=== PATIENT | female | born 1950 | race Caucasian/White ===

== ENCOUNTER 2017-11-15 05:47 | Inpatient (IN) | payer OTHER ==
[2017-11-15] MEDS ORDERED: FUROSEMIDE 40 MG/4 ML INJECTABLE VIAL IVPUSH ONE ×2 (05:50→06:03)
[2017-11-15] MEDS ORDERED: HEMOQUE TEST 1 EACH EACH ONE (05:55)
[2017-11-15] MEDS ORDERED: MAGNESIUM SULF 50% (8.12 MEQ/2 ML-1 GM VIAL) IVPB ONE (06:00)
[2017-11-15 06:02] LABS: ALLENS TEST POSITIVE; ARTERIAL BLD GAS O2 SATURATION 95.1 % (90-98.9); ARTERIAL BLOOD GAS BASE EXCESS -5.1 meq/l (-2-2); ARTERIAL BLOOD GAS PCO2 59.6 mmHg (35-45); ARTERIAL BLOOD GAS PO2 84.1 mmHg (80-100); CARBOXYHEMOGLOBIN 5.8 gm% (0.5-2.0)
[2017-11-15] MEDS ORDERED: methylPREDNISolone NA SUCC 125 MG/2 ML VIAL IVPUSH ONE (06:03)
[2017-11-15] MEDS ORDERED: PROPOFOL 200 MG/20 ML VIAL IVPUSH ONE ×5 (06:03→07:39)
[2017-11-15 06:04] LABS: ARTERIAL BLOOD GAS pH 7.21 (7.35-7.45)
[2017-11-15] MEDS: PROPOFOL 1,000,000 MCG/100 ML VIAL IVPB SCH ×3 (06:05→17:25)
[2017-11-15 06:07] LABS: VENOUS PC02 69.6 mmHg (38-52); VENOUS PH 7.17 (7.32-7.42); VENOUS PO2 95.3 mmHg (28-48)
--- NOTE | 2017-11-15 06:10 | PDOC ---
Attending Attestation - Resident Resident Name: Bernie Vang - ED Attending Attestation I have performed the following: I have examined & evaluated the patient, The case was reviewed & discussed with the resident, I agree w/resident's findings & plan, Exceptions are as noted - Medical Decision Making 11/15/17 06:07 67yoF hx of HTN, DM, CHF, COPD presents w/ intubation by EMS for resp distress and hypoxic resp failure, pt w/ likely CHF/APE as pt is hypertensive w/ significant edema and ronchi on examination. Possilbe component of COPD exacerbation as well. - Intubated, continue ETT. - labs w/ ABG - CXR - EKG - cardaic monitor - nebs/steroids - lasix, NTG PRN - propofol sedation - ICU <Ely Coleman - Last Filed: 11/15/17 06:06> - HPI HPI: 11/15/17 06:29 The patient is a 67 year old female brought in by EMS, with a past medical history of PVD, CHF, COPD, diabetes, heart disease, HTN, HLD, chronic edema, and schizophrenia, who presents to the emergency department for evaluation of respiratory distress. The patient was intubated en route to ED by EMS for resp distress w/ inability to tolerate CPAP in the field. Pt notably hypertensive both in the field and in the ER. Patient is taking 40mg of Lasix 2x daily. Unable to obtain narrative history secondary to patients current clinical condition. Allergies: Ciprofloxacin, erythromycin base, penicillins, shellfish Social History: As per EMS, smokes a pack and a half per day. No reported alcohol or drug use. Surgical History: Denies. PCP: Dr. William Du - Physicial Exam PE: NAD EOMI, JULIO CÉSAR MMM, OP WNL NCAT, no midline cervical tenderness RRR, nl s1/s2, no m/r/g (+)intubated, rhonchorous breath sounds. (+)Obese. Soft, NTND (+)2+ pitting edema bilateral lower extremities. WWP, no rash <Zohreh Lund - Last Filed: 11/15/17 06:54> Attestations - Attestations Documentation prepared by Zohreh Lund, acting as medical communication specialist for Ely Coleman MD. <Zohreh Lund - Last Filed: 11/15/17 06:54>
--- NOTE | 2017-11-15 06:11 | PDOC ---
History of Present Illness - General Chief Complaint: Respiratory Distress Stated Complaint: RESPIRATORY DISTRESS Time Seen by Provider: 11/15/17 05:51 - History of Present Illness Initial Comments: 11/15/17 06:04 67 year old with history of HTN. DM, COPD, CHF BIBA presented in respiratory distress and hypoxic resp failure, intubated en route 2/2 unable to tolerate CPAP. Per EMS patient takes lasix 40mg daily. Patient likely w/ CHF exacerbation. On exam significant rhonchi bilaterally. Vital signs stable. Tube checked and in place. PMHX: as in HPI Meds: as in HPI Allergies: cipro, erythromycin, penicillin, shellfish Past History - Past Medical History Allergies/Adverse Reactions: Allergies Allergy/AdvReac Type Severity Reaction Status Date / Time ciprofloxacin [From Cipro] Allergy Verified 11/15/17 06:03 erythromycin base Allergy Verified 11/15/17 06:03 Penicillins Allergy Verified 11/15/17 06:03 shellfish derived Allergy Verified 11/15/17 06:03 Home Medications: Ambulatory Orders Bismuth Subsalicylate [Pepto-Bismol -] 524 mg PO DAILY PRN 11/15/17 Bismuth Subsalicylate [[place] Bismuth] 15 ml PO DAILY PRN 11/15/17 Calcium Carbonate/Vitamin D3 [Calcium 600 + Vit D 200 Tablet] 1 each PO BID 10/26 Carvedilol [Coreg -] 50 mg PO BID 11/15/17 Clonidine HCl [Catapres] 0.1 mg PO BID 11/15/17 Clopidogrel Bisulfate [Plavix] 75 mg PO DAILY 11/15/17 Diphenoxylate HCl/Atropine [Lomotil Tablet] 1 each PO DAILY 11/15/17 Famotidine [Pepcid -] 20 mg PO DAILY 11/15/17 Furosemide [Lasix -] 40 mg PO BID 11/15/17 Glimepiride 4 mg PO BID 11/15/17 Metformin HCl [Metformin HCl ER] 1,000 mg PO BID 11/15/17 Methimazole [Tapazole -] 10 mg PO BID 11/15/17 Perphenazine [Trilafon] 8 mg PO HS 11/15/17 Petrolatum,White [Aquaphor] 85 gm TP DAILY 11/15/17 Simethicone [Anti-Gas] 180 mg PO TID PRN 11/15/17 Simvastatin [Zocor -] 10 mg PO DAILY 11/15/17 Sitagliptin Phos/Metformin HCl [Janumet Xr 100-1,000 mg Tablet] 1 tab PO DAILY 11/15/17 Zolpidem Tartrate [Ambien] 10 mg PO HS 11/15/17 - Suicide/Smoking/Psychosocial Hx Smoking History: Unknown if ever smoked Have you smoked in the past 12 months: No Information on smoking cessation initiated: No Hx Alcohol Use: No Drug/Substance Use Hx: No Review of Systems - Review of Systems Able to Perform ROS?: No (intubated) *Physical Exam - Vital Signs Last Vital Signs Temp Pulse Resp BP Pulse Ox 96.4 F L 78 14 210/141 100 11/15/17 05:48 11/15/17 05:48 11/15/17 05:50 11/15/17 05:48 11/15/17 05:48 - Physical Exam Comments: GENERAL: intubated HEAD: No signs of trauma, normocephalic, atraumatic EYES: PERRLA LUNGS: rhonchous breath sounds anteriorly HEART: Regular rate and rhythm, normal S1 and S2, no murmurs, rubs or gallops, peripheral pulses normal and equal bilaterally. ABDOMEN: Soft, nontender, normoactive bowel sounds. EXTREMITIES : Normal inspection, no edema. No clubbing or cyanosis. SKIN: Warm, Dry, normal turgor, no rashes or lesions noted ED Treatment Course - LABORATORY CBC & Chemistry Diagram: 11/18/17 09:00 11/18/17 09:00 Medical Decision Making - Medical Decision Making 67 year old with history of HTN. DM, COPD, CHF BIBA presented in respiratory distress and hypoxic resp failure, intubated en route 2/2 unable to tolerate CPAP. Per EMS patient takes lasix 40mg daily. W/U - PTT, PT/INR, CBC, CMP, BNP, POC Glucose - CXR - UA, Ucx DDX: CHF exacerbation vs COPD exacerbation vs ARF Patient signed out to Dr. Molina. *DC/Admit/Observation/Transfer Diagnosis at time of Disposition: CHF exacerbation Qualifiers: Heart failure type: unspecified Qualified Code(s): I50.9 - Heart failure, unspecified - Discharge Dispostion Condition at time of disposition: Critical Decision to Admit order: Yes - Referrals - Patient Instructions - Post Discharge Activity
[2017-11-15] MEDS: IPRATROPIUM BR 0.02% 0.5 MG/2.5 ML VIAL.NEB. NEB SCH ×2 (06:31→06:32)
[2017-11-15] MEDS: ALBUTEROL SO4 0.083% IH SOL 2.5 MG/3 ML VIAL.NEB. NEB SCH ×2 (06:31→06:32)
[2017-11-15 06:41] LABS: INR 1.02 (0.83-1.09); PROTHROMBIN TIME (PATIENT) 11.5 SEC (9.7-13.0)
[2017-11-15 06:43] LABS: ACTIVATED PTT 32.8 SECONDS (25.2-36.5)
[2017-11-15] MEDS ORDERED: fentaNYL CITRATE/PF 1,000 MCG/20 ML AMPUL IVPUSH ONE ×2 (06:44→07:12)
[2017-11-15 06:46] LABS: BASO % 0.6 % (0-2.0); EOS % 2.2 % (0-4.5); HEMATOCRIT 34.4 % (32.4-45.2); HEMOGLOBIN 11.5 GM/dL (10.7-15.3); LYMPH % 26.2 % (8-40); MCH 29.6 pg (25.7-33.7); MCHC 33.3 g/dl (32.0-36.0); MEAN CELL VOLUME 88.9 fl (80-96); MEAN PLT VOLUME 8.4 fl (7.5-11.1); MONO % 6.7 % (3.8-10.2); NEUT % 64.3 % (42.8-82.8); PLATELET COUNT 224 K/MM3 (134-434); RBC 3.88 M/mm3 (3.60-5.2); RDW 15.4 % (11.6-15.6); WHITE BLOOD COUNT 8.7 K/mm3 (4.0-10.0)
[2017-11-15] MEDS ORDERED: Insulin (LOG) Aspart 100 UNITS/ML VIAL SQ ONE (06:46)
[2017-11-15 06:52] LABS: ALK PHOS 99 U/L (45-117); ANION GAP 2 (8-16); BILIRUBIN,TOTAL 0.1 mg/dL (0.2-1.0); BLOOD UREA NITROGEN 24 mg/dL (7-18); CALCIUM 8.5 mg/dL (8.5-10.1); CHLORIDE 106 mmol/L (98-107); CO2 27 mmol/L (21-32); CREATININE 0.8 mg/dL (0.55-1.02); POTASSIUM 4.5 mmol/L (3.5-5.1); SGOT/AST 16 U/L (15-37); SGPT/ALT 16 U/L (12-78); SODIUM 135 mmol/L (136-145); TOT PROT 6.3 g/dl (6.4-8.2)
[2017-11-15 06:53] LABS: URINE APPEARANCE CLEAR; URINE BILIRUBIN NEGATIVE (<2.0 mg/dL); URINE COLOR STRAW; URINE GLUCOSE (UA) 2+ (NEGATIVE); URINE KETONE NEGATIVE (NEGATIVE); URINE LEUK ESTERASE TRACE (NEGATIVE); URINE NITRITE NEGATIVE (NEGATIVE); URINE UROBILINOGEN NEGATIVE mg/dL (0.2-1.0)
[2017-11-15 06:57] LABS: GLUCOSE,RANDOM 305 mg/dL (74-106)
[2017-11-15] MEDS ORDERED: INSULIN (NOVOLOG) ASPART 100 UNITS/ML 10ML VIAL ONE (07:02)
[2017-11-15 07:04] LABS: URINE PROTEIN 3+ (NEGATIVE)
[2017-11-15] MEDS ORDERED: PROPOFOL 20 ML ONE (07:13)
[2017-11-15 07:14] LABS: EPI CELLS RARE /HPF (FEW); URINE BACTERIA MANY /hpf (NONE SEEN); URINE HYALINE CAST 4 /lpf; URINE MUCUS RARE
--- NOTE | 2017-11-15 07:16 | PDOC ---
*Physical Exam - Vital Signs Last Vital Signs Temp Pulse Resp BP Pulse Ox 96.4 F L 61 14 179/64 99 11/15/17 05:48 11/15/17 06:57 11/15/17 06:32 11/15/17 06:57 11/15/17 06:57 - Physical Exam Comments: GENERAL: Intubated, sedated HEENT: No signs of trauma, ETT in place LUNGS: B/l diffuse rhonchi HEART: Regular rate and rhythm, normal S1 and S2 ABDOMEN: Soft, protuberant, non-distended EXTREMITIES : BLE 2+ pitting edema with overlying erythema; without warmth or induration 11/15/17 07:20 ED Treatment Course - LABORATORY CBC & Chemistry Diagram: 11/15/17 06:05 11/15/17 06:05 - ADDITIONAL ORDERS Additional order review: Laboratory Results 11/15/17 11/15/17 11/15/17 06:15 06:05 06:05 PT with INR 11.50 INR 1.02 PTT (Actin FS) 32.8 Puncture Site ABG pH ABG pCO2 at Pt Temp ABG pO2 at Pt Temp ABG HCO3 ABG O2 Sat (Measured) ABG O2 Content ABG Base Excess Dhiraj Test VBG pH POC VBG pCO2 POC VBG pO2 Mixed VBG HCO3 Carboxyhemoglobin Methemoglobin O2 Delivery Device Oxygen Flow Rate Vent Mode Vent Rate Mechanical Rate PEEP Pressure Support Vent Sodium 135 L Potassium 4.5 Chloride 106 Carbon Dioxide 27 Anion Gap 2 L BUN 24 H Creatinine 0.8 Creat Clearance w eGFR > 60 POC Glucometer Random Glucose 305 H* Calcium 8.5 Total Bilirubin 0.1 L AST 16 ALT 16 Alkaline Phosphatase 99 Total Protein 6.3 L Albumin 3.0 L Urine Color Straw Urine Appearance Clear Urine pH 6.0 Ur Specific [place] 1.010 Urine Protein 3+ H Urine Glucose (UA) 2+ H Urine Ketones Negative Urine Blood Negative Urine Nitrite Negative Urine Bilirubin Negative Urine Urobilinogen Negative Ur Leukocyte Esterase Trace Urine WBC (Auto) 11 Urine RBC (Auto) 3 Ur Epithelial Cells Rare Urine Bacteria Many Hyaline Casts 4 Urine Mucus Rare 11/15/17 11/15/17 11/15/17 06:01 05:54 05:50 PT with INR INR PTT (Actin FS) Puncture Site Left radial ABG pH 7.21 L* ABG pCO2 at Pt Temp 59.6 H ABG pO2 at Pt Temp 84.1 ABG HCO3 23.0 ABG O2 Sat (Measured) 95.1 ABG O2 Content 14.3 L ABG Base Excess -5.1 L Dhiraj Test Positive VBG pH 7.17 L* POC VBG pCO2 69.6 H* POC VBG pO2 95.3 H Mixed VBG HCO3 24.1 Carboxyhemoglobin 5.8 H Methemoglobin 1.6 H O2 Delivery Device Vent Oxygen Flow Rate 70 Vent Mode A/c Vent Rate 14 Mechanical Rate Yes PEEP 8.0 Pressure Support Vent 450 Sodium Potassium Chloride Carbon Dioxide Anion Gap BUN Creatinine Creat Clearance w eGFR POC Glucometer [phone] Random Glucose Calcium Total Bilirubin AST ALT Alkaline Phosphatase Total Protein Albumin Urine Color Urine Appearance Urine pH Ur Specific [place] Urine Protein Urine Glucose (UA) Urine Ketones Urine Blood Urine Nitrite Urine Bilirubin Urine Urobilinogen Ur Leukocyte Esterase Urine WBC (Auto) Urine RBC (Auto) Ur Epithelial Cells Urine Bacteria Hyaline Casts Urine Mucus 11/15/17 11/15/17 06:05 06:01 RBC 3.88 MCV 88.9 MCHC 33.3 RDW 15.4 MPV 8.4 Neutrophils % 64.3 Lymphocytes % 26.2 Monocytes % 6.7 Eosinophils % 2.2 Basophils % 0.6 POC Glucometer [phone] - Medications Given in the ED: ED Medications Discontinued Medications Generic Name Dose Route Start Last Admin Trade Name Jeff PRN Reason Stop Dose Admin Albuterol Sulfate 1 amp 11/15/17 06:15 11/15/17 06:32 Ventolin 0.083% Nebulizer Soln - NEB 11/15/17 06:36 1 amp Q10M JOHAN Administration Fentanyl Citrate 75 mcg 11/15/17 06:44 11/15/17 06:50 Fentanyl 1,000 Mcg/20 Ml Ampul IVPUSH 11/15/17 06:45 75 mcg ONCE ONE Administration Furosemide 80 mg 11/15/17 05:50 11/15/17 06:29 Lasix Injection - IVPUSH 11/15/17 05:51 Not Given ONCE ONE Furosemide 80 mg 11/15/17 06:03 11/15/17 06:00 Lasix Injection - IVPUSH 11/15/17 06:04 80 mg ONCE ONE Administration Insulin Aspart 6 units 11/15/17 06:46 11/15/17 07:03 Novolog SQ 11/15/17 06:47 6 units ONCE ONE Administration Ipratropium [place] 1 amp 11/15/17 06:15 11/15/17 06:32 Atrovent 0.02% Nebulizer - NEB 11/15/17 06:36 1 amp Q10M JOHAN Administration Magnesium Sulfate 2 gm 11/15/17 06:00 11/15/17 06:00 Magnesium Sulfate IVPB 11/15/17 06:01 2 gm NOW ONE Administration Methylprednisolone Sodium Succinate 125 mg 11/15/17 06:03 11/15/17 06:00 Solu-Medrol - IVPUSH 11/15/17 06:04 125 mg ONCE ONE Administration Propofol 80,000 mcg 11/15/17 06:03 11/15/17 06:09 Diprivan - IVPUSH 11/15/17 06:04 80,000 mcg ONCE ONE Administration Propofol 80,000 mcg 11/15/17 06:44 11/15/17 06:50 Diprivan - IVPUSH 11/15/17 06:45 80,000 mcg ONCE ONE Administration Medical Decision Making - Critical Care Time Total Critical Care Time (minutes): 30 Critical Care Statement: The care of this patient involved high complexity decision making to prevent further life threatening deterioration of the patient 's condition and/or to evaluate & treat vital organ system(s) failure or risk of failure. - Medical Decision Making I have assumed care of the patient from Dr. Meza, who has discussed the clinical presentation, work-up, and ED course thus far. I have reviewed the patients medical record and ED course and agree with all aspects of care thus far. Patient is currently intubated, sedated with propofol gtt, and pending ICU admission. Dr. Meza had given sign out to ICU team. Will contact hospitalist for admission/sign-out Will continue post-intubation sedation with Propofol and Versed gtt. Patient hyperglycemic (305), will give Novolog 6u once Currently regular rate, normotensive, and saturating well on AC Pending transfer to ICU; Will be admitted under Dr. Angel 11/15/17 07:15 *DC/Admit/Observation/Transfer Diagnosis at time of Disposition: CHF exacerbation Qualifiers: Heart failure type: unspecified Qualified Code(s): I50.9 - Heart failure, unspecified - Discharge Dispostion Condition at time of disposition: Critical Decision to Admit order: Yes - Referrals - Patient Instructions - Post Discharge Activity
[2017-11-15] MEDS: MIDAZOLAM 100 MG in SODIUM CHLORIDE 100 ML IVPB SCH (07:45)
[2017-11-15] MEDS ORDERED: PROPOFOL 1,000,000 MCG/100 ML VIAL ONE (08:01)
--- NOTE | 2017-11-15 10:24 | HP ---
CHIEF COMPLAINT: Respiratory arrest PCP: Dr. William Du at [facility] [phone] Dr. Wright - PCP - [facility] Camargo - Cardiology - [facility] Griffin - Endo - [facility] Walker HISTORY OF PRESENT ILLNESS: 67 year-old female with a PMH significant for HTN, HLD, CAD s/p RI s/p stents, CHF, COPD, hyperthyroidism, NIDDM with retinopathy and neuropathy, frequent falls, and schizophrenia. Patient's son Lavon Brown is present at the time of this admission. He visited his mother yesterday afternoon. He observed her legs and feet were more swollen than usual. She had her usual chronic cough. She did not appear to be unusually short of breath. Some time last evening, after he left, the patient became short of breath and the staff at [facility] activated EMS. Patient was found to be in extreme respiratory distress. She was intubated in the field and brought to the ED. Per the son the patient has a history of frequent hospitalizations but has never been intubated. ER course was notable for: (1) ABG 7.21/59/84/23/95% on 70% FiO2 (2) BNP 2253 (3) UA - pyuria Recent Travel: No PAST MEDICAL HISTORY: Hypertension Hyperlipidemia Coronary artery disease s/p RI CHF COPD Hyperthyroidism NIDDM - retinopathy, neuropathy Frequent falls Schizophrenia PAST SURGICAL HISTORY: Coronary artery stents C-sections x 2 Social History: Smoking: Current every day smoker Alcohol: no Drugs: no Family History: Allergies ciprofloxacin [From Cipro] Allergy (Verified 11/15/17 06:03) erythromycin base Allergy (Verified 11/15/17 06:03) Penicillins Allergy (Verified 11/15/17 06:03) shellfish derived Allergy (Verified 11/15/17 06:03) HOME MEDICATIONS: Home Medications Medication Instructions Recorded Bismuth Subsalicylate 524 mg PO DAILY PRN 11/15/17 [Pepto-Bismol -] Bismuth Subsalicylate [[place] 15 ml PO DAILY PRN 11/15/17 Bismuth] Calcium Carbonate/Vitamin D3 1 each PO BID 11/15/17 [Calcium 600 + Vit D 200 Tablet] Carvedilol [Coreg -] 50 mg PO BID 11/15/17 Clonidine HCl [Catapres] 0.1 mg PO BID 11/15/17 Clopidogrel Bisulfate [Plavix] 75 mg PO DAILY 11/15/17 Diphenoxylate HCl/Atropine 1 each PO DAILY 11/15/17 [Lomotil Tablet] Famotidine [Pepcid -] 20 mg PO DAILY 11/15/17 Furosemide [Lasix -] 40 mg PO BID 11/15/17 Glimepiride 4 mg PO BID 11/15/17 Metformin HCl [Metformin HCl ER] 1,000 mg PO BID 11/15/17 Methimazole [Tapazole -] 10 mg PO BID 11/15/17 Perphenazine [Trilafon] 8 mg PO HS 11/15/17 Petrolatum,White [Aquaphor] 85 gm TP DAILY 11/15/17 Simethicone [Anti-Gas] 180 mg PO TID PRN 11/15/17 Simvastatin [Zocor -] 10 mg PO DAILY 11/15/17 Sitagliptin Phos/Metformin HCl 1 tab PO DAILY 11/15/17 [Janumet Xr 100-1,000 mg Tablet] Zolpidem Tartrate [Ambien] 10 mg PO HS 11/15/17 REVIEW OF SYSTEMS: Patient sedated and intubated PHYSICAL EXAMINATION Vital Signs Temperature 97.9 F 11/15/17 18:00 Pulse Rate 62 11/15/17 18:00 Respiratory Rate 18 11/15/17 18:00 Blood Pressure 187/74 11/15/17 18:00 O2 Sat by Pulse Oximetry (%) 100 11/15/17 10:00 GENERAL: Intubated, sedated HEAD: Normal with no signs of trauma. EYES: Pupils equal, round and reactive to light LUNGS: Mechanical breath sounds HEART: Regular rate and rhythm, S1 and S2 ABDOMEN: Soft, nontender, not distended LOWER EXTREMITIES: 2+ pulses, warm, well-perfused. No calf tenderness elicited. 2+ pitting edema feet up to knees. Laboratory Results - last 24 hr 11/15/17 11/15/17 11/15/17 05:50 05:54 06:01 WBC RBC Hgb Hct MCV MCH MCHC RDW Plt Count MPV Absolute Neuts (auto) Neutrophils % Lymphocytes % Monocytes % Eosinophils % Basophils % Nucleated RBC % PT with INR INR PTT (Actin FS) Puncture Site Left radial ABG pH 7.21 L* ABG pCO2 at Pt Temp 59.6 H ABG pO2 at Pt Temp 84.1 ABG HCO3 23.0 ABG O2 Sat (Measured) 95.1 ABG O2 Content 14.3 L ABG Base Excess -5.1 L Dhiraj Test Positive VBG pH 7.17 L* POC VBG pCO2 69.6 H* POC VBG pO2 95.3 H Mixed VBG HCO3 24.1 Carboxyhemoglobin 5.8 H Methemoglobin 1.6 H O2 Delivery Device Vent Oxygen Flow Rate 70 Vent Mode A/c Vent Rate 14 Mechanical Rate Yes PEEP 8.0 Pressure Support Vent 450 Sodium Potassium Chloride Carbon Dioxide Anion Gap BUN Creatinine Creat Clearance w eGFR POC Glucometer [phone] Random Glucose Lactic Acid Calcium Total Bilirubin AST ALT Alkaline Phosphatase Creatine Kinase Troponin I B-Natriuretic Peptide Total Protein Albumin Urine Color Urine Appearance Urine pH Ur Specific [place] Urine Protein Urine Glucose (UA) Urine Ketones Urine Blood Urine Nitrite Urine Bilirubin Urine Urobilinogen Ur Leukocyte Esterase Urine WBC (Auto) Urine RBC (Auto) Ur Epithelial Cells Urine Bacteria Hyaline Casts Urine Mucus 11/15/17 11/15/17 11/15/17 06:05 06:05 06:05 WBC 8.7 RBC 3.88 Hgb 11.5 Hct 34.4 MCV 88.9 MCH 29.6 MCHC 33.3 RDW 15.4 Plt Count 224 MPV 8.4 Absolute Neuts (auto) 5.6 Neutrophils % 64.3 Lymphocytes % 26.2 Monocytes % 6.7 Eosinophils % 2.2 Basophils % 0.6 Nucleated RBC % 0 PT with INR 11.50 INR 1.02 PTT (Actin FS) 32.8 Puncture Site ABG pH ABG pCO2 at Pt Temp ABG pO2 at Pt Temp ABG HCO3 ABG O2 Sat (Measured) ABG O2 Content ABG Base Excess Dhiraj Test VBG pH POC VBG pCO2 POC VBG pO2 Mixed VBG HCO3 Carboxyhemoglobin Methemoglobin O2 Delivery Device Oxygen Flow Rate Vent Mode Vent Rate Mechanical Rate PEEP Pressure Support Vent Sodium 135 L Potassium 4.5 Chloride 106 Carbon Dioxide 27 Anion Gap 2 L BUN 24 H Creatinine 0.8 Creat Clearance w eGFR > 60 POC Glucometer Random Glucose 305 H* Lactic Acid Calcium 8.5 Total Bilirubin 0.1 L AST 16 ALT 16 Alkaline Phosphatase 99 Creatine Kinase Troponin I B-Natriuretic Peptide Total Protein 6.3 L Albumin 3.0 L Urine Color Urine Appearance Urine pH Ur Specific [place] Urine Protein Urine Glucose (UA) Urine Ketones Urine Blood Urine Nitrite Urine Bilirubin Urine Urobilinogen Ur Leukocyte Esterase Urine WBC (Auto) Urine RBC (Auto) Ur Epithelial Cells Urine Bacteria Hyaline Casts Urine Mucus 11/15/17 11/15/17 11/15/17 06:05 06:15 06:40 WBC RBC Hgb Hct MCV MCH MCHC RDW Plt Count MPV Absolute Neuts (auto) Neutrophils % Lymphocytes % Monocytes % Eosinophils % Basophils % Nucleated RBC % PT with INR INR PTT (Actin FS) Puncture Site ABG pH ABG pCO2 at Pt Temp ABG pO2 at Pt Temp ABG HCO3 ABG O2 Sat (Measured) ABG O2 Content ABG Base Excess Dhiraj Test VBG pH POC VBG pCO2 POC VBG pO2 Mixed VBG HCO3 Carboxyhemoglobin Methemoglobin O2 Delivery Device Oxygen Flow Rate Vent Mode Vent Rate Mechanical Rate PEEP Pressure Support Vent Sodium Potassium Chloride Carbon Dioxide Anion Gap BUN Creatinine Creat Clearance w eGFR POC Glucometer Random Glucose Lactic Acid 1.7 Calcium Total Bilirubin AST ALT Alkaline Phosphatase Creatine Kinase 45 Troponin I < 0.02 B-Natriuretic Peptide Total Protein Albumin Urine Color Straw Urine Appearance Clear Urine pH 6.0 Ur Specific [place] 1.010 Urine Protein 3+ H Urine Glucose (UA) 2+ H Urine Ketones Negative Urine Blood Negative Urine Nitrite Negative Urine Bilirubin Negative Urine Urobilinogen Negative Ur Leukocyte Esterase Trace Urine WBC (Auto) 11 Urine RBC (Auto) 3 Ur Epithelial Cells Rare Urine Bacteria Many Hyaline Casts 4 Urine Mucus Rare 11/15/17 06:40 WBC RBC Hgb Hct MCV MCH MCHC RDW Plt Count MPV Absolute Neuts (auto) Neutrophils % Lymphocytes % Monocytes % Eosinophils % Basophils % Nucleated RBC % PT with INR INR PTT (Actin FS) Puncture Site ABG pH ABG pCO2 at Pt Temp ABG pO2 at Pt Temp ABG HCO3 ABG O2 Sat (Measured) ABG O2 Content ABG Base Excess Dhiraj Test VBG pH POC VBG pCO2 POC VBG pO2 Mixed VBG HCO3 Carboxyhemoglobin Methemoglobin O2 Delivery Device Oxygen Flow Rate Vent Mode Vent Rate Mechanical Rate PEEP Pressure Support Vent Sodium Potassium Chloride Carbon Dioxide Anion Gap BUN Creatinine Creat Clearance w eGFR POC Glucometer Random Glucose Lactic Acid Calcium Total Bilirubin AST ALT Alkaline Phosphatase Creatine Kinase Troponin I B-Natriuretic Peptide 2253.39 H Total Protein Albumin Urine Color Urine Appearance Urine pH Ur Specific [place] Urine Protein Urine Glucose (UA) Urine Ketones Urine Blood Urine Nitrite Urine Bilirubin Urine Urobilinogen Ur Leukocyte Esterase Urine WBC (Auto) Urine RBC (Auto) Ur Epithelial Cells Urine Bacteria Hyaline Casts Urine Mucus ASSESSMENT/PLAN: 67 year-old female with a PMH significant for HTN, HLD, CAD s/p RI s/p stents, CHF, COPD, NIDDM with retinopathy and neuropathy, frequent falls, and schizophrenia. Admitted for acute respiratory failure. Acute hypoxic and hypercapnic respiratory failure --repeat ABG improved --weaning trial in am Acute on chronic heart failure, NOS --echo done, pending dictation --Lasix IV 40mg BID --fine; strict I&Os; daily weights Coronary artery disease s/p RI s/p stents --continue carvedilol, Plavix Acute on chronic COPD exacerbation --duonebs --hold IV steroids for now Hypertension --continue carvedilol, clonidine Hyperlipidemia --continue simvastatin Hyperthyroidism --hold methimazole, cannot be crushed for OG tube NIDDM --Novolog sliding scale coverage Schizophrenia --continue Trilafon Visit type - Emergency Visit Emergency Visit: Yes ED Registration Date: 11/15/17 Care time: The patient presented to the Emergency Department on the above date and was hospitalized for further evaluation of their emergent condition. - New Patient This patient is new to me today: Yes Date on this admission: 11/15/17 - Critical Care Critical Care patient: Yes Total Critical Care Time (in minutes): 45 Critical Care Statement: The care of this patient involved high complexity decision making to prevent further life threatening deterioration of the patient 's condition and/or to evaluate & treat vital organ system(s) failure or risk of failure. Hospitalist Screening - Colonoscopy Questionnaire Colonoscopy Questionnaire: Colonoscopy Questionnaire - Patient: 50 - 75 years old and never had a screening colonoscopy: Unknown History of colon or rectal polyps, or CA: No History of IBD, Crohn's disease or UC: No History of abdominal radiation therapy as a child: No - Relative: 1 with colon or rectal CA, or polyps at age 60 or younger: Unknown Colon or rectal CA diagnosed at age 45 or younger: Unknown Multiple relatives with colon or rectal CA: Unknown - Outcome: Screening Result: Negative Screen
[2017-11-15] MEDS: INSULIN SLIDING SCALE (NOVOLOG) 1 VIAL SQ SCH ×3 (11:00→21:45)
[2017-11-15] MEDS ORDERED: INSULIN (NOVOLOG) ASPART 100 UNITS/ML 10ML VIAL SQ SCH (11:00)
[2017-11-15] MEDS: ALBUTEROL SO4 2.5/IPRATROPIUM 0.5 INH SOL 3 ML VIAL.NEB. NEB SCH ×3 (12:00→23:00)
--- NOTE | 2017-11-15 12:17 | PN ---
Teaching Attending Note Name of Resident: Manjit Osei ATTENDING PHYSICIAN STATEMENT I saw and evaluated the patient. I reviewed the resident's note and discussed the case with the resident. I agree with the resident's findings and plan as documented. SUBJECTIVE: Pt seen and examined in the ICU. Briefly, 67yo female with h/o HTN, hyperlipidemia, DM, PAD, CHF, COPD, schizophrenia who was admitted with respiratory distress, started on CPAP in the field but subsequently intubated. Noted to be hypertensive with SBP >200. Initial ABG with respiratory acidosis. She is a long time smoker. Currently unable to provide further history at this time. OBJECTIVE: Vital Signs Period Temp Pulse Resp BP Sys/Calero Pulse Ox Last 24 Hr 96.4 F-97.6 F 57-78 8-19 119-210/64-141 99-100 Intake & Output 11/12/17 11/13/17 11/14/17 11/15/17 23:59 23:59 23:59 23:59 Output Total 1575 Balance -1575 Weight 106 kg Gen: intubated, sedated Neck: + JVD Heart: RRR Lung: scattered rhonchi Abd: soft, nontender Ext: + edema CBC, BMP 11/15/17 06:05 11/15/17 06:05 CXR: pulmonary vascular congestion Active Medications Albuterol/Ipratropium (Duoneb -) 1 amp NEB Q6H JOHAN Carvedilol (Coreg -) 50 mg PO BID JOHAN Chlorhexidine Gluconate (Hibiclens For Decolonization -) 1 applic TP HS JOHAN Clonidine (Catapres -) 0.1 mg PO BID JOHAN Clopidogrel Bisulfate (Plavix -) 75 mg PO DAILY JOHAN Enoxaparin Sodium (Lovenox -) 40 mg SQ DAILY JOHAN Propofol (Diprivan -) 1,000,000 mcg in 100 mls @ 13.608 mls/hr IVPB TITR JOHAN; Protocol Last Titration: 11/15/17 11:00 Dose: 40 mcg/kg/min, 27.216 mls/hr Midazolam HCl 100 mg/ Sodium (Chloride) 100 mls @ 8 mls/hr IVPB TITR JOHAN; Protocol Last Titration: 11/15/17 09:00 Dose: 5 mg/hr, 5 mls/hr Insulin Aspart (Novolog Vial Sliding Scale -) 1 vial SQ ACHS JOHAN; Protocol Last Admin: 11/15/17 11:00 Dose: 6 units Insulin Aspart (Novolog Vial) 1 units SQ [facility]; Protocol Mupirocin (Bactroban Ointment (For Decolonization) -) 1 applic NS BID [facility] Stop: 11/20/17 21:59 ASSESSMENT AND PLAN: Acute Hypoxic and Hypercapneic Respiratory Failure Decompensated CHF COPD HTN DM Smoker - IV lasix - monitor urine output, creatinine - daily weights - BP control - echocardiogram - inhaled bronchodilators - can defer systemic steroids at this time - taper FiO2 to keep Spo2 >90% - hold sedation in AM to assess mental status - spontaneous breathing trials as tolerated when mental status improved - DVT/GI prophylaxis critical care time spent in reviewing chart, evaluating patient and formulating plan 35 min
[2017-11-15] MEDS: CLOPIDOGREL BISULFATE 75 MG TABLET (FP) PO SCH (13:34)
[2017-11-15] MEDS: FUROSEMIDE 40 MG/4 ML INJECTABLE VIAL IVPUSH SCH (13:35)
--- NOTE | 2017-11-15 15:19 | ECHO ---
Name: JOSELITO SCHUSTERRICIA Exam:Adult Echocardiogram Study Date: 11/15/2017 01:48 PM Age: 67 yrs Reason For Study: CHF Height: 66 in Weight: 233 lb BSA: 2.1 m2 MMode/2D Measurements & Calculations IVSd: 1.1 cm LA dimension: 3.0 cm LVIDd: 5.1 cm LVIDs: 3.4 cm LVPWd: 1.3 cm EDV(Teich): 121.0 ml ESV(Teich): 46.1 ml Doppler Measurements & Calculations TR max jose l: 219.6 cm/sec Med Peak E' Jose L: 3.4 cm/sec TR max P.4 mmHg Lat Peak E' Jose L: 5.4 cm/sec PI Vmax: 118.1 cm/sec Procedure A complete two-dimensional transthoracic echocardiogram was performed (2D, M-mode, Doppler and color flow Doppler). The study was technically difficult with many images being suboptimal in quality. Left Ventricle The left ventricular size, thickness and function are normal. Ejection Fraction = 60%. E/A reversal c onsistent with but not diagnostic of poor LV compliance. Right Ventricle The right ventricle is normal in size and function. Atria Normal left and right atrial size and function. Mitral Valve The mitral valve is grossly normal. There is mild mitral regurgitation. Tricuspid Valve The tricuspid valve is not well visualized, but is grossly normal. Right ventricular systolic pressur e is 25 mmhg. There is trace tricuspid regurgitation. Aortic Valve There is mild aortic sclerosis.;. Pulmonic Valve The pulmonic valve is not well visualized. Great Vessels The aortic root is normal size. Normal aortic arch, descending and ascending aorta. Pericardium/Pleura There is no pericardial effusion. There is no pleural effusion. Interpretation Summary The study was technically difficult with many images being suboptimal in quality. The left ventricular size, thickness and function are normal Ejection Fraction = 60%. The right ventricle is normal in size and function. E/A reversal consistent with but not diagnostic of poor LV compliance There is mild mitral regurgitation. There is trace tricuspid regurgitation. Right ventricular systolic pressure is 25 mmhg. There is mild aortic sclerosis.; MD Davis Leal 11/15/2017 03:18 PM
--- NOTE | 2017-11-15 16:26 | EKG ---
Test Reason : Blood Pressure : / mmHG Vent. Rate : 092 BPM Atrial Rate : 092 BPM P-R Int : 174 ms QRS Dur : 096 ms QT Int : 374 ms P-R-T Axes : 045 -37 073 degrees QTc Int : 462 ms NORMAL SINUS RHYTHM LEFT AXIS DEVIATION MINIMAL VOLTAGE CRITERIA FOR LVH, MAY BE NORMAL VARIANT SEPTAL INFARCT , AGE UNDETERMINED ABNORMAL ECG NO PREVIOUS ECGS AVAILABLE Confirmed by Davis Leal MD ([id number]) on 11/15/2017 4:25:36 PM Referred By: Confirmed By:Davis Leal MD
[2017-11-15 17:02] LABS: ARTERIAL BLD GAS O2 SATURATION 98.9 % (90-98.9); ARTERIAL BLOOD GAS BASE EXCESS 1.1 meq/l (-2-2); ARTERIAL BLOOD GAS PCO2 35.2 mmHg (35-45); ARTERIAL BLOOD GAS pH 7.45 (7.35-7.45)
[2017-11-15 17:16] LABS: ALLENS TEST POSITIVE
[2017-11-15] MEDS: cloNIDine HCL 0.1 MG TABLET PO SCH (21:26)
[2017-11-15] MEDS: ENOXAPARIN NA (PORCINE) 40 MG/0.4 ML DISP.SYRIN SQ SCH (21:27)
[2017-11-15] MEDS: CARVEDILOL 25 MG TABLET (FP) PO SCH (21:27)
[2017-11-15] MEDS: PERPHENAZINE 4 MG TABLET PO SCH (21:27)
[2017-11-15] MEDS: ATORVASTATIN CA 10 MG TABLET (FP) PO SCH (21:27)
[2017-11-15] MEDS: MUPIROCIN 2% TOPICAL OINTMENT FOR DECOLONIZATION NS SCH (21:28)
[2017-11-15] MEDS: CHLORHEXIDINE GLUCONATE 4% CLEANSER FOR DECOLONIZATION TP SCH (21:28)
[2017-11-16 06:03] LABS: BASO % 0.5 % (0-2.0); EOS % 0.1 % (0-4.5); HEMATOCRIT 32.2 % (32.4-45.2); HEMOGLOBIN 10.8 GM/dL (10.7-15.3); LYMPH % 16.6 % (8-40); MCH 29.1 pg (25.7-33.7); MCHC 33.6 g/dl (32.0-36.0); MEAN CELL VOLUME 86.7 fl (80-96); MEAN PLT VOLUME 8.1 fl (7.5-11.1); MONO % 11.9 % (3.8-10.2); NEUT % 70.9 % (42.8-82.8); PLATELET COUNT 212 K/MM3 (134-434); RBC 3.71 M/mm3 (3.60-5.2); RDW 15.5 % (11.6-15.6); WHITE BLOOD COUNT 12.1 K/mm3 (4.0-10.0)
[2017-11-16] MEDS: INSULIN SLIDING SCALE (NOVOLOG) 1 VIAL SQ SCH ×4 (06:11→21:13)
[2017-11-16] MEDS: FUROSEMIDE 40 MG/4 ML INJECTABLE VIAL IVPUSH SCH ×2 (06:11→13:58)
[2017-11-16 06:39] LABS: CHLORIDE 103 mmol/L (98-107); POTASSIUM 3.3 mmol/L (3.5-5.1); SODIUM 138 mmol/L (136-145)
[2017-11-16 06:46] LABS: ALBUMIN 2.7 g/dl (3.4-5.0); ALK PHOS 82 U/L (45-117); ANION GAP 8 (8-16); BILIRUBIN,TOTAL 0.2 mg/dL (0.2-1.0); BLOOD UREA NITROGEN 26 mg/dL (7-18); CALCIUM 8.4 mg/dL (8.5-10.1); CO2 27 mmol/L (21-32); CREATININE 0.7 mg/dL (0.55-1.02); GLUCOSE,RANDOM 127 mg/dL (74-106); MAGNESIUM 2.2 mg/dL (1.8-2.4); PHOSPHOROUS 3.9 mg/dL (2.5-4.9); SGOT/AST 12 U/L (15-37); SGPT/ALT 13 U/L (12-78); TOT PROT 5.6 g/dl (6.4-8.2)
[2017-11-16] MEDS: PROPOFOL 1,000,000 MCG/100 ML VIAL IVPB SCH (07:15)
[2017-11-16] MEDS: MIDAZOLAM 100 MG in SODIUM CHLORIDE 100 ML IVPB SCH (07:15)
--- NOTE | 2017-11-16 07:38 | PN ---
Physical Exam: SUBJECTIVE: Patient seen and examined. Extubated. OBJECTIVE: Vital Signs Period Temp Pulse Resp BP Sys/Calero Pulse Ox Last 24 Hr 97.6 F-98.8 F 56-68 14-19 119-196/57-82 99-100 GENERAL: Extubated, still mildy sedated, speech slow but appropriate, answers questions HEAD: Normal with no signs of trauma. EYES: Pupils equal, round and reactive to light LUNGS: Anterior breath sounds CTA HEART: Regular rate and rhythm, S1 and S2 ABDOMEN: Soft, nontender, not distended LOWER EXTREMITIES: 2+ pulses, warm, well-perfused. No calf tenderness elicited. 2+ pitting edema feet up to knees. Laboratory Results - last 24 hr 11/15/17 11/15/17 11/15/17 06:40 06:40 13:45 WBC RBC Hgb Hct MCV MCH MCHC RDW Plt Count MPV Absolute Neuts (auto) Neutrophils % Lymphocytes % Monocytes % Eosinophils % Basophils % Nucleated RBC % Puncture Site ABG pH ABG pCO2 at Pt Temp ABG pO2 at Pt Temp ABG HCO3 ABG O2 Sat (Measured) ABG O2 Content ABG Base Excess Dhiraj Test O2 Delivery Device Oxygen Flow Rate Vent Mode Vent Rate Mechanical Rate PEEP Pressure Support Vent Sodium Potassium Chloride Carbon Dioxide Anion Gap BUN Creatinine Creat Clearance w eGFR POC Glucometer Random Glucose Lactic Acid Calcium Phosphorus Magnesium Total Bilirubin AST ALT Alkaline Phosphatase Creatine Kinase 45 40 Troponin I < 0.02 0.03 B-Natriuretic Peptide 2253.39 H Total Protein Albumin 11/15/17 11/15/17 11/15/17 13:45 16:50 18:39 WBC RBC Hgb Hct MCV MCH MCHC RDW Plt Count MPV Absolute Neuts (auto) Neutrophils % Lymphocytes % Monocytes % Eosinophils % Basophils % Nucleated RBC % Puncture Site Right radial ABG pH 7.45 D ABG pCO2 at Pt Temp 35.2 D ABG pO2 at Pt Temp 135.0 H D ABG HCO3 24.2 ABG O2 Sat (Measured) 98.9 ABG O2 Content 16.9 ABG Base Excess 1.1 Dhiraj Test Positive O2 Delivery Device Mech vent Oxygen Flow Rate 50% Vent Mode A/c Vent Rate 18 Mechanical Rate Yes PEEP 8.0 Pressure Support Vent 500 Sodium Potassium Chloride Carbon Dioxide Anion Gap BUN Creatinine Creat Clearance w eGFR POC Glucometer Random Glucose Lactic Acid 1.4 Calcium Phosphorus Magnesium Total Bilirubin AST ALT Alkaline Phosphatase Creatine Kinase 30 Troponin I 0.02 B-Natriuretic Peptide Total Protein Albumin 11/15/17 11/16/17 11/16/17 21:44 05:30 05:30 WBC 12.1 H RBC 3.71 Hgb 10.8 Hct 32.2 L MCV 86.7 MCH 29.1 MCHC 33.6 RDW 15.5 Plt Count 212 MPV 8.1 Absolute Neuts (auto) 8.6 Neutrophils % 70.9 Lymphocytes % 16.6 D Monocytes % 11.9 H Eosinophils % 0.1 D Basophils % 0.5 Nucleated RBC % 0 Puncture Site ABG pH ABG pCO2 at Pt Temp ABG pO2 at Pt Temp ABG HCO3 ABG O2 Sat (Measured) ABG O2 Content ABG Base Excess Dhiraj Test O2 Delivery Device Oxygen Flow Rate Vent Mode Vent Rate Mechanical Rate PEEP Pressure Support Vent Sodium 138 Potassium 3.3 L Chloride 103 Carbon Dioxide 27 Anion Gap 8 BUN 26 H Creatinine 0.7 Creat Clearance w eGFR > 60 POC Glucometer 173.80973 Random Glucose 127 H Lactic Acid Calcium 8.4 L Phosphorus 3.9 Magnesium 2.2 Total Bilirubin 0.2 AST 12 L ALT 13 Alkaline Phosphatase 82 D Creatine Kinase Troponin I B-Natriuretic Peptide Total Protein 5.6 L Albumin 2.7 L 11/16/17 05:54 WBC RBC Hgb Hct MCV MCH MCHC RDW Plt Count MPV Absolute Neuts (auto) Neutrophils % Lymphocytes % Monocytes % Eosinophils % Basophils % Nucleated RBC % Puncture Site ABG pH ABG pCO2 at Pt Temp ABG pO2 at Pt Temp ABG HCO3 ABG O2 Sat (Measured) ABG O2 Content ABG Base Excess Dhiraj Test O2 Delivery Device Oxygen Flow Rate Vent Mode Vent Rate Mechanical Rate PEEP Pressure Support Vent Sodium Potassium Chloride Carbon Dioxide Anion Gap BUN Creatinine Creat Clearance w eGFR POC Glucometer 131.02356 Random Glucose Lactic Acid Calcium Phosphorus Magnesium Total Bilirubin AST ALT Alkaline Phosphatase Creatine Kinase Troponin I B-Natriuretic Peptide Total Protein Albumin Active Medications Generic Name Dose Route Start Last Admin Trade Name Freq PRN Reason Stop Dose Admin Albuterol/Ipratropium 1 amp 11/16/17 08:00 Duoneb - NEB RQID JOHAN Atorvastatin Calcium 10 mg 11/15/17 22:00 11/15/17 21:27 Lipitor - PO 10 mg HS JOHAN Administration Carvedilol 50 mg 11/15/17 22:00 08/07/18 21:27 Coreg - PO 50 mg BID JOHAN Administration Chlorhexidine Gluconate 1 applic 11/15/17 22:00 11/15/17 21:28 Hibiclens For Decolonization - TP 1 applic HS JOHAN Administration Clonidine 0.1 mg 11/15/17 22:00 11/15/17 21:26 Catapres - PO 0.1 mg BID JOHAN Administration Clopidogrel Bisulfate 75 mg 11/15/17 11:30 11/15/17 13:34 Plavix - PO 75 mg DAILY JOHAN Administration Enoxaparin Sodium 40 mg 11/15/17 22:00 11/15/17 21:27 Lovenox - SQ 40 mg DAILY JOHAN Administration Furosemide 40 mg 11/15/17 14:00 11/16/17 06:11 Lasix Injection - IVPUSH 40 mg BID@0600,1400 JOHAN Administration Propofol 1,000,000 mcg in 100 mls @ 13.608 mls/hr 11/15/17 06:15 11/16/17 06: 11 Diprivan - IVPB 40 mcg/kg/min TITR JOHAN 27.216 mls/hr Titration Protocol 20 MCG/KG/MIN Midazolam HCl 100 mg/ Sodium 100 mls @ 8 mls/hr 11/15/17 07:15 11/15/17 21:26 Chloride IVPB 5 mg/hr TITR JOHAN 5 mls/hr Titration Protocol 8 MG/HR Insulin Aspart 1 vial 11/15/17 11:00 11/16/17 06:11 Novolog Vial Sliding Scale - SQ Not Given ACHS JOHAN Protocol Mupirocin 1 applic 11/15/17 22:00 11/15/17 21:28 Bactroban Ointment (For Decolonization) - NS 11/20/17 21:59 1 applic BID JOHAN Administration Perphenazine 8 mg 11/15/17 22:00 11/15/17 21:27 Trilafon PO 8 mg HS JOHAN Administration ASSESSMENT/PLAN: 67 year-old female with a PMH significant for HTN, HLD, CAD s/p ME s/p stents, CHF, COPD, NIDDM with retinopathy and neuropathy, frequent falls, and schizophrenia. Admitted for acute respiratory failure. Acute hypoxic and hypercapnic respiratory failure --extubated Acute on chronic diastolic heart failure --11/15 Echo: LV normal, EF 60%; RV normal; mild MR; trace TR --down 4L and ~1kg in 24 hours --renal function is stable --continue Lasix IV 40mg BID Coronary artery disease s/p ME s/p stents --continue carvedilol, Plavix Acute on chronic COPD exacerbation --duonebs --hold IV steroids for now Hypertension --continue carvedilol, clonidine Hyperlipidemia --continue simvastatin Hyperthyroidism --resume methimazole NIDDM --Novolog sliding scale coverage Schizophrenia --continue Trilafon FEN Fluids: PO intake adequate Electrolytes: replete as indicated Nutrition: diabetic full liquids DVT prophylaxis: lovenox Physical therapy Dispo: continues to require ICU level care. Full code. Visit type - Emergency Visit Emergency Visit: Yes ED Registration Date: 11/15/17 Care time: The patient presented to the Emergency Department on the above date and was hospitalized for further evaluation of their emergent condition. - New Patient This patient is new to me today: No - Critical Care Critical Care patient: Yes Total Critical Care Time (in minutes): 45 Critical Care Statement: The care of this patient involved high complexity decision making to prevent further life threatening deterioration of the patient 's condition and/or to evaluate & treat vital organ system(s) failure or risk of failure.
[2017-11-16] MEDS: ALBUTEROL SO4 2.5/IPRATROPIUM 0.5 INH SOL 3 ML VIAL.NEB. NEB SCH ×4 (08:28→20:35)
[2017-11-16] MEDS ORDERED: KCL 10 MEQ IVPB 10 MEQ/100 ML INFUS.BAG IVPB SCH (09:00)
[2017-11-16] MEDS: MUPIROCIN 2% TOPICAL OINTMENT FOR DECOLONIZATION NS SCH ×2 (09:21→21:12)
[2017-11-16] MEDS: ENOXAPARIN NA (PORCINE) 40 MG/0.4 ML DISP.SYRIN SQ SCH (09:21)
[2017-11-16] MEDS: CARVEDILOL 25 MG TABLET (FP) PO SCH ×2 (09:21→21:13)
[2017-11-16] MEDS: CLOPIDOGREL BISULFATE 75 MG TABLET (FP) PO SCH (09:21)
[2017-11-16] MEDS: cloNIDine HCL 0.1 MG TABLET PO SCH ×2 (09:21→21:12)
[2017-11-16] MEDS ORDERED: ENOXAPARIN NA (PORCINE) 40 MG/0.4 ML DISP.SYRIN SQ SCH (10:00)
[2017-11-16] MEDS ORDERED: CEFTRIAXONE 1 GM in DEXTROSE 5%-WATER - 100 ML IVPB SCH (10:00)
[2017-11-16] MEDS ORDERED: CEFTRIAXONE 1 GM in DEXTROSE 5%-WATER - 100 ML IVPB ONE (11:22)
[2017-11-16] MEDS ORDERED: LISINOPRIL 10 MG TABLET (FP) PO SCH (11:30)
[2017-11-16] MEDS ORDERED: LISINOPRIL 5 MG TABLET (FP) PO SCH (11:30)
--- NOTE | 2017-11-16 11:35 | PN ---
Teaching Attending Note Name of Resident: Manjit Osei ATTENDING PHYSICIAN STATEMENT I saw and evaluated the patient. I reviewed the resident's note and discussed the case with the resident. I agree with the resident's findings and plan as documented. SUBJECTIVE: Pt seen and examined in the ICU. Awake off sedation while intubated. Tolerated CPAP/PS trials and subsequently extubated during rounds. Still hypertensive. Diuresed well with lasix. OBJECTIVE: Vital Signs Period Temp Pulse Resp BP Sys/Calero Pulse Ox Last 24 Hr 97.7 F-99.0 F 56-74 15-19 142-187/57-86 99-100 Intake & Output 11/13/17 11/14/17 11/15/17 11/16/17 23:59 23:59 23:59 23:59 Intake Total 304 400 Output Total 2525 1450 Balance -2221 -1050 Weight 106 kg 105.29 kg Gen: extubated Heart: RRR Lung: decreased breath sounds at the bases Abd: soft, nontender Ext: +edema CBC, BMP 11/16/17 05:30 11/16/17 05:30 Active Medications Albuterol/Ipratropium (Duoneb -) 1 amp NEB RQID [facility] Last Admin: 11/16/17 08:28 Dose: 1 amp Atorvastatin Calcium (Lipitor -) 10 mg PO [facility] Last Admin: 11/15/17 21:27 Dose: 10 mg Carvedilol (Coreg -) 50 mg PO BID [facility] Last Admin: 11/16/17 09:21 Dose: 50 mg Chlorhexidine Gluconate (Hibiclens For Decolonization -) 1 applic TP [facility] Last Admin: 11/15/17 21:28 Dose: 1 applic Clonidine (Catapres -) 0.1 mg PO BID [facility] Last Admin: 11/16/17 09:21 Dose: 0.1 mg Clopidogrel Bisulfate (Plavix -) 75 mg PO DAILY [facility] Last Admin: 11/16/17 09:21 Dose: 75 mg Enoxaparin Sodium (Lovenox -) 40 mg SQ DAILY [facility] Last Admin: 11/16/17 09:21 Dose: 40 mg Furosemide (Lasix Injection -) 40 mg IVPUSH BID@0600,1400 [facility] Last Admin: 11/16/17 06:11 Dose: 40 mg Propofol (Diprivan -) 1,000,000 mcg in 100 mls @ 13.608 mls/hr IVPB TITR JOHAN; Protocol Last Admin: 11/16/17 07:15 Dose: 45 mcg/kg/min, 30.617 mls/hr Midazolam HCl 100 mg/ Sodium (Chloride) 100 mls @ 8 mls/hr IVPB TITR JOHAN; Protocol Last Admin: 11/16/17 07:15 Dose: 5 mg/hr, 5 mls/hr Ceftriaxone Sodium 1 gm/ (Dextrose) 100 mls @ 200 mls/hr IVPB ONCE ONE; Protocol Stop: 11/16/17 11:51 Insulin Aspart (Novolog Vial Sliding Scale -) 1 vial SQ ACHS [facility]; Protocol Last Admin: 11/16/17 06:11 Dose: Not Given Lisinopril (Prinivil) 10 mg PO DAILY [facility] Mupirocin (Bactroban Ointment (For Decolonization) -) 1 applic NS BID JOHAN Stop: 11/20/17 21:59 Last Admin: 11/16/17 09:21 Dose: 1 applic Perphenazine (Trilafon) 8 mg PO HS JOHAN Last Admin: 11/15/17 21:27 Dose: 8 mg ASSESSMENT AND PLAN: Acute Hypoxic and Hypercapneic Respiratory Failure UTI Acute on Chronic Diastolic Heart Failure COPD HTN DM Smoker - start antibiotics for UTI - f/u cultures - continue IV lasix - monitor urine output, creatinine - daily weights - replete lytes - BP control, add HILLARY/ARB - inhaled bronchodilators - can defer systemic steroids at this time - taper FiO2 to keep Spo2 >90% - DVT/GI prophylaxis critical care time spent in reviewing chart, evaluating patient and formulating plan 35 min
--- NOTE | 2017-11-16 12:54 | CONSULT ---
Consultation: REQUESTING PROVIDER: CONSULT REQUEST: We have been asked to medically evaluate this patient for ( Acute Hypoxic and Hypercapneic Respiratory Failure). HISTORY OF PRESENT ILLNESS: Mrs Brown is a 67 y/o lady who presented to [facility] from [facility] by EMS. Per assisted living staff, pt was in respiratory distress and hypoxic resp failure and was intubated by EMS on her way to hospital after she was unable to tolerate CPAP in the field. Pt has since been extubated this afternoon and is tolerating nasal canula 4L. Earlier this afternoon, pt exhibited left arm weakness and slurred speech. CT Head was done which revealed mild cortical atrophy but no intracranial pathology. PT sitting up in bed, son by bedside, eating. Endorses nasal congestion and pain in her sinuses. Denies cp or sob. Allergies: Ciprofloxacin, erythromycin base, penicillins, shellfish Social History: Smokes a pack and a half per day. No reported alcohol or drug use. Surgical History: Denies. PCP: Dr. William [employer] [facility] [place] REVIEW OF SYSTEMS: CONSTITUTIONAL: Absent: fever, chills, diaphoresis, generalized weakness, malaise, loss of appetite, weight change HEENT: PRESENT: rhinorrhea, nasal congestion CARDIOVASCULAR: Absent: chest pain, syncope, palpitations, irregular heart rate, lightheadedness , peripheral edema RESPIRATORY: Absent: cough, shortness of breath, dyspnea with exertion, orthopnea, wheezing, stridor, hemoptysis GASTROINTESTINAL: Absent: abdominal pain, abdominal distension, nausea, vomiting, diarrhea, constipation, melena, hematochezia GENITOURINARY: Absent: dysuria, frequency, urgency, hesitancy, hematuria, flank pain, genital pain MUSCULOSKELETAL: Absent: myalgia, arthralgia, joint swelling, back pain, neck pain SKIN: PRESENT: Venous Stasis, edema lower extremities b/l HEMATOLOGIC/IMMUNOLOGIC: Absent: easy bleeding, easy bruising, lymphadenopathy, frequent infections ENDOCRINE: Absent: unexplained weight gain, unexplained weight loss, heat intolerance, cold intolerance NEUROLOGIC: Absent: headache, focal weakness or paresthesias, dizziness, unsteady gait, seizure, mental status changes, bladder or bowel incontinence PSYCHIATRIC: PRESENT: Depression, schizophrenia PHYSICAL EXAMINATION Vital Signs - 24 hr 08/07/18 08/07/18 08/07/18 14:00 15:06 16:00 Temperature 97.7 F 97.8 F Pulse Rate 56 L 59 L Respiratory 18 18 18 Rate Blood Pressure 187/82 178/70 O2 Sat by Pulse Oximetry (%) 11/15/17 11/15/17 11/15/17 17:58 18:00 20:00 Temperature 97.9 F Pulse Rate 62 59 L Respiratory 18 18 18 Rate Blood Pressure 187/74 179/62 O2 Sat by Pulse Oximetry (%) 11/15/17 11/15/17 11/15/17 20:53 21:11 22:00 Temperature 98.6 F Pulse Rate 60 Respiratory 18 18 18 Rate Blood Pressure 164/57 O2 Sat by Pulse 100 Oximetry (%) 11/16/17 11/16/17 11/16/17 00:00 00:20 02:00 Temperature 98.8 F Pulse Rate 58 L 62 Respiratory 18 18 16 Rate Blood Pressure 154/61 149/59 O2 Sat by Pulse Oximetry (%) 11/16/17 11/16/17 11/16/17 03:22 04:00 06:00 Temperature 98.6 F Pulse Rate 57 L 64 Respiratory 18 18 15 Rate Blood Pressure 142/57 163/74 O2 Sat by Pulse Oximetry (%) 11/16/17 11/16/17 11/16/17 06:16 08:00 08:26 Temperature 99.0 F Pulse Rate 61 56 L Respiratory 18 18 18 Rate Blood Pressure 178/59 O2 Sat by Pulse 100 100 Oximetry (%) 11/16/17 11/16/17 11/16/17 10:00 10:47 12:00 Temperature 98.2 F 98.7 F Pulse Rate 66 74 64 Respiratory 18 15 Rate Blood Pressure 169/86 161/62 O2 Sat by Pulse 99 Oximetry (%) GENERAL: Extubated. Awake, alert, and fully oriented. HEAD: NC/AT EYES: EOMI. EARS, NOSE, THROAT: MMM. No teeth. NECK: Supple LUNGS: BS Dec at bases HEART: RRR, S1, S2, No MRG ABDOMEN: Obese. UPPER EXTREMITIES: Pulses 2+. Strength 2-3+ b/l. LOWER EXTREMITIES: 2+ pulses. Strength 1+ b/l. NEUROLOGICAL: No Neuro Deficits. PSYCHIATRIC: Schizophrenia, depression. SKIN: Venous stasis, edema lower extremities. Laboratory Results - last 24 hr 11/15/17 11/15/17 11/15/17 10:58 13:45 13:45 WBC RBC Hgb Hct MCV MCH MCHC RDW Plt Count MPV Absolute Neuts (auto) Neutrophils % Lymphocytes % Monocytes % Eosinophils % Basophils % Nucleated RBC % Puncture Site ABG pH ABG pCO2 at Pt Temp ABG pO2 at Pt Temp ABG HCO3 ABG O2 Sat (Measured) ABG O2 Content ABG Base Excess Dhiraj Test O2 Delivery Device Oxygen Flow Rate Vent Mode Vent Rate Mechanical Rate PEEP Pressure Support Vent Sodium Potassium Chloride Carbon Dioxide Anion Gap BUN Creatinine Creat Clearance w eGFR POC Glucometer [phone] Random Glucose Hemoglobin A1c % Lactic Acid 1.4 Calcium Phosphorus Magnesium Total Bilirubin AST ALT Alkaline Phosphatase Creatine Kinase 40 Troponin I 0.03 Total Protein Albumin 11/15/17 11/15/17 11/15/17 16:50 16:52 18:39 WBC RBC Hgb Hct MCV MCH MCHC RDW Plt Count MPV Absolute Neuts (auto) Neutrophils % Lymphocytes % Monocytes % Eosinophils % Basophils % Nucleated RBC % Puncture Site Right radial ABG pH 7.45 D ABG pCO2 at Pt Temp 35.2 D ABG pO2 at Pt Temp 135.0 H D ABG HCO3 24.2 ABG O2 Sat (Measured) 98.9 ABG O2 Content 16.9 ABG Base Excess 1.1 Dhiraj Test Positive O2 Delivery Device Mech vent Oxygen Flow Rate 50% Vent Mode A/c Vent Rate 18 Mechanical Rate Yes PEEP 8.0 Pressure Support Vent 500 Sodium Potassium Chloride Carbon Dioxide Anion Gap BUN Creatinine Creat Clearance w eGFR POC Glucometer [phone] Random Glucose Hemoglobin A1c % Lactic Acid Calcium Phosphorus Magnesium Total Bilirubin AST ALT Alkaline Phosphatase Creatine Kinase 30 Troponin I 0.02 Total Protein Albumin 11/15/17 11/16/17 11/16/17 21:44 05:30 05:30 WBC 12.1 H RBC 3.71 Hgb 10.8 Hct 32.2 L MCV 86.7 MCH 29.1 MCHC 33.6 RDW 15.5 Plt Count 212 MPV 8.1 Absolute Neuts (auto) 8.6 Neutrophils % 70.9 Lymphocytes % 16.6 D Monocytes % 11.9 H Eosinophils % 0.1 D Basophils % 0.5 Nucleated RBC % 0 Puncture Site ABG pH ABG pCO2 at Pt Temp ABG pO2 at Pt Temp ABG HCO3 ABG O2 Sat (Measured) ABG O2 Content ABG Base Excess Dhiraj Test O2 Delivery Device Oxygen Flow Rate Vent Mode Vent Rate Mechanical Rate PEEP Pressure Support Vent Sodium 138 Potassium 3.3 L Chloride 103 Carbon Dioxide 27 Anion Gap 8 BUN 26 H Creatinine 0.7 Creat Clearance w eGFR > 60 POC Glucometer [phone] Random Glucose 127 H Hemoglobin A1c % Lactic Acid Calcium 8.4 L Phosphorus 3.9 Magnesium 2.2 Total Bilirubin 0.2 AST 12 L ALT 13 Alkaline Phosphatase 82 D Creatine Kinase Troponin I Total Protein 5.6 L Albumin 2.7 L 11/16/17 11/16/17 05:30 05:54 WBC RBC Hgb Hct MCV MCH MCHC RDW Plt Count MPV Absolute Neuts (auto) Neutrophils % Lymphocytes % Monocytes % Eosinophils % Basophils % Nucleated RBC % Puncture Site ABG pH ABG pCO2 at Pt Temp ABG pO2 at Pt Temp ABG HCO3 ABG O2 Sat (Measured) ABG O2 Content ABG Base Excess Dhiraj Test O2 Delivery Device Oxygen Flow Rate Vent Mode Vent Rate Mechanical Rate PEEP Pressure Support Vent Sodium Potassium Chloride Carbon Dioxide Anion Gap BUN Creatinine Creat Clearance w eGFR POC Glucometer 131.48835 Random Glucose Hemoglobin A1c % 8.8 H Lactic Acid Calcium Phosphorus Magnesium Total Bilirubin AST ALT Alkaline Phosphatase Creatine Kinase Troponin I Total Protein Albumin Active Medications Generic Name Dose Route Start Last Admin Trade Name Reyq PRN Reason Stop Dose Admin Albuterol/Ipratropium 1 amp 11/16/17 08:00 11/16/17 11:46 Duoneb - NEB 1 amp RQID JOHAN Administration Atorvastatin Calcium 10 mg 11/15/17 22:00 11/15/17 21:27 Lipitor - PO 10 mg HS JOHAN Administration Carvedilol 50 mg 11/15/17 22:00 11/16/17 09:21 Coreg - PO 50 mg BID JOHAN Administration Chlorhexidine Gluconate 1 applic 11/15/17 22:00 11/15/17 21:28 Hibiclens For Decolonization - TP 1 applic HS JOHAN Administration Clonidine 0.1 mg 11/15/17 22:00 11/16/17 09:21 Catapres - PO 0.1 mg BID JOHAN Administration Clopidogrel Bisulfate 75 mg 11/15/17 11:30 11/16/17 09:21 Plavix - PO 75 mg DAILY JOHAN Administration Enoxaparin Sodium 40 mg 11/15/17 22:00 11/16/17 09:21 Lovenox - SQ 40 mg DAILY JOHAN Administration Furosemide 40 mg 11/15/17 14:00 11/16/17 06:11 Lasix Injection - IVPUSH 40 mg BID@0600,1400 JOHAN Administration Propofol 1,000,000 mcg in 100 mls @ 13.608 mls/hr 11/15/17 06:15 11/16/17 07: 15 Diprivan - IVPB 45 mcg/kg/min TITR JOHAN 30.617 mls/hr Administration Protocol 20 MCG/KG/MIN Midazolam HCl 100 mg/ Sodium 100 mls @ 8 mls/hr 11/15/17 07:15 11/16/17 07:15 Chloride IVPB 5 mg/hr TITR JOHAN 5 mls/hr Administration Protocol 8 MG/HR Insulin Aspart 1 vial 11/15/17 11:00 11/16/17 12:13 Novolog Vial Sliding Scale - SQ 4 units ACHS JOHAN Administration Protocol Lisinopril 10 mg 11/16/17 11:30 Prinivil PO DAILY JOHAN Mupirocin 1 applic 11/15/17 22:00 11/16/17 09:21 Bactroban Ointment (For Decolonization) - NS 11/20/17 21:59 1 applic BID JOHAN Administration Perphenazine 8 mg 11/15/17 22:00 11/15/17 21:27 Trilafon PO 8 mg HS JOHAN Administration ASSESSMENT/PLAN: 67 y/o lady who presented to [facility] from [facility] by EMS. Per assisted living staff, pt was in respiratory distress and hypoxic resp failure and was intubated by EMS on her way to hospital after she was unable to tolerate CPAP in the field. Neuro: Schizophrenia -Perphenazine 8 mg PO HS Head CT 11/16/17-->Moderate atrophy without gross evidence of acute intracranial pathology. Cardio: CHF, HTN - Lisinopril started today-Prinivil 10 mg PO -Furosemide 40 mg IVPUSH BID -Catapres 0.1 mg PO BID -Coreg 50 mg PO BID - Lipitor 10 mg PO Resp: Acute Hypoxic and Hypercapneic Respiratory Failure possibly 2/2 COPD Exacerbation/CHF -Extubated today, Now on 4L NC - Albuterol/Ipratropium Chest X-Ray 11/26/17-->Mild improvement in vascular engorgement and left retrocardiac opacity. I.D- UTI trace leukocyte esterase -Allergic to penicillin--> Ceftriaxone not given -Consider using Macrobid Endo-DM2 Novolog Sliding Scale DVT ppx: Lovenox 40 mg SQ Daily FEN No Fluids Monitor Electrolytes Full Liquid Diabetic Diet Dispo: We will continue to follow the patient. Thank you for this consultative opportunity. Visit type - Emergency Visit Emergency Visit: Yes ED Registration Date: 11/15/17 Care time: The patient presented to the Emergency Department on the above date and was hospitalized for further evaluation of their emergent condition. - New Patient This patient is new to me today: No - Critical Care Critical Care patient: Yes Total Critical Care Time (in minutes): 35 Critical Care Statement: The care of this patient involved high complexity decision making to prevent further life threatening deterioration of the patient 's condition and/or to evaluate & treat vital organ system(s) failure or risk of failure.
[2017-11-16] MEDS ORDERED: ACETAMINOPHEN 500 MG TABLET (FP) PO ONE (15:15)
[2017-11-16] MEDS ORDERED: ACETAMINOPHEN 325 MG TABLET (FP) ONE (20:44)
[2017-11-16] MEDS ORDERED: ACETAMINOPHEN 325 MG TABLET (FP) PO PRN (20:49)
[2017-11-16] MEDS: PERPHENAZINE 4 MG TABLET PO SCH (21:12)
[2017-11-16] MEDS: ATORVASTATIN CA 10 MG TABLET (FP) PO SCH (21:12)
[2017-11-16] MEDS: CHLORHEXIDINE GLUCONATE 4% CLEANSER FOR DECOLONIZATION TP SCH (21:14)
[2017-11-17] MEDS: FUROSEMIDE 40 MG/4 ML INJECTABLE VIAL IVPUSH SCH ×2 (05:59→13:02)
[2017-11-17] MEDS: INSULIN SLIDING SCALE (NOVOLOG) 1 VIAL SQ SCH ×4 (06:04→21:32)
[2017-11-17 06:30] LABS: HEMATOCRIT 32.6 % (32.4-45.2); HEMOGLOBIN 11.1 GM/dL (10.7-15.3); MCH 29.7 pg (25.7-33.7); MCHC 33.9 g/dl (32.0-36.0); MEAN CELL VOLUME 87.5 fl (80-96); MEAN PLT VOLUME 8.1 fl (7.5-11.1); PLATELET COUNT 211 K/MM3 (134-434); RBC 3.73 M/mm3 (3.60-5.2); RDW 15.7 % (11.6-15.6); WHITE BLOOD COUNT 8.5 K/mm3 (4.0-10.0)
[2017-11-17 07:19] LABS: ALBUMIN 2.8 g/dl (3.4-5.0); ANION GAP 11 (8-16); BLOOD UREA NITROGEN 20 mg/dL (7-18); CALCIUM 8.3 mg/dL (8.5-10.1); CHLORIDE 105 mmol/L (98-107); CO2 28 mmol/L (21-32); GLUCOSE,RANDOM 186 mg/dL (74-106); MAGNESIUM 2.1 mg/dL (1.8-2.4); POTASSIUM 3.6 mmol/L (3.5-5.1); SODIUM 144 mmol/L (136-145)
[2017-11-17 07:24] LABS: ALK PHOS 84 U/L (45-117); BILIRUBIN,TOTAL 0.4 mg/dL (0.2-1.0); CREATININE 0.6 mg/dL (0.55-1.02); PHOSPHOROUS 3.8 mg/dL (2.5-4.9); SGOT/AST 8 U/L (15-37); SGPT/ALT 11 U/L (12-78); TOT PROT 5.8 g/dl (6.4-8.2)
[2017-11-17] MEDS: ALBUTEROL SO4 2.5/IPRATROPIUM 0.5 INH SOL 3 ML VIAL.NEB. NEB SCH ×4 (08:29→20:09)
[2017-11-17] MEDS ORDERED: CEFTRIAXONE 1 GM in DEXTROSE 5%-WATER - 100 ML IVPB ONE (08:46)
--- NOTE | 2017-11-17 08:56 | PN ---
Physical Exam: SUBJECTIVE: Patient seen and examined in the ICU. Awake, alert, denies pain. OBJECTIVE: smoker 1.5 pack daily with lower ext edema,will doppler BP elevated on 4 liters nc Vital Signs Period Temp Pulse Resp BP Sys/Calero Pulse Ox Last 24 Hr 98.2 F-99.1 F 57-74 15-20 153-179/62-90 99-99 GENERAL: The patient is awake, alert, in no acute distress. HEAD: Normal with no signs of trauma. EYES: PERRL, extraocular movements intact, sclera anicteric, conjunctiva clear. No ptosis. ENT: Ears normal, nares patent, oropharynx clear without exudates NECK: Trachea midline, full range of motion, supple. LUNGS: Breath sounds equal, mild congestion on left upper lobe, tolerating 4 liters NC HEART: Regular rate and rhythm. ABDOMEN: Soft, nontender, nondistended, normoactive bowel sounds EXTREMITIES: left lower ext with non pitting edema, right lower ext non pitting edema. left > right NEUROLOGICAL: Normal speech, gait not observed. PSYCH: Normal mood, normal affect. SKIN: Warm, dry, normal turgor, no rashes or lesions noted Laboratory Results - last 24 hr 11/15/17 11/15/17 11/16/17 10:58 16:52 12:11 WBC RBC Hgb Hct MCV MCH MCHC RDW Plt Count MPV Sodium Potassium Chloride Carbon Dioxide Anion Gap BUN Creatinine Creat Clearance w eGFR POC Glucometer [phone] 223.85632 Random Glucose Calcium Phosphorus Magnesium Total Bilirubin AST ALT Alkaline Phosphatase Total Protein Albumin 11/16/17 11/16/17 11/17/17 16:47 20:57 05:30 WBC 8.5 RBC 3.73 Hgb 11.1 Hct 32.6 MCV 87.5 MCH 29.7 MCHC 33.9 RDW 15.7 H Plt Count 211 MPV 8.1 Sodium Potassium Chloride Carbon Dioxide Anion Gap BUN Creatinine Creat Clearance w eGFR POC Glucometer 165.77975 198.49098 Random Glucose Calcium Phosphorus Magnesium Total Bilirubin AST ALT Alkaline Phosphatase Total Protein Albumin 11/17/17 05:30 WBC RBC Hgb Hct MCV MCH MCHC RDW Plt Count MPV Sodium 144 Potassium 3.6 Chloride 105 Carbon Dioxide 28 Anion Gap 11 BUN 20 H Creatinine 0.6 Creat Clearance w eGFR > 60 POC Glucometer Random Glucose 186 H Calcium 8.3 L Phosphorus 3.8 Magnesium 2.1 Total Bilirubin 0.4 AST 8 L ALT 11 L Alkaline Phosphatase 84 Total Protein 5.8 L Albumin 2.8 L Active Medications Generic Name Dose Route Start Last Admin Trade Name Jeff PRN Reason Stop Dose Admin Acetaminophen 650 mg 11/16/17 20:49 11/16/17 21:12 Tylenol - PO 650 mg Q6H PRN Administration FEVER Albuterol/Ipratropium 1 amp 11/16/17 08:00 11/17/17 08:29 Duoneb - NEB 1 amp RQID OJHAN Administration Atorvastatin Calcium 10 mg 11/15/17 22:00 11/16/17 21:12 Lipitor - PO 10 mg HS JOHAN Administration Carvedilol 50 mg 11/15/17 22:00 11/16/17 21:13 Coreg - PO 50 mg BID JOHAN Administration Chlorhexidine Gluconate 1 applic 11/15/17 22:00 11/16/17 21:14 Hibiclens For Decolonization - TP 1 applic HS JOHAN Administration Clonidine 0.1 mg 11/15/17 22:00 11/16/17 21:12 Catapres - PO 0.1 mg BID JOHAN Administration Clopidogrel Bisulfate 75 mg 11/15/17 11:30 11/16/17 09:21 Plavix - PO 75 mg DAILY JOHAN Administration Enoxaparin Sodium 40 mg 11/15/17 22:00 11/16/17 09:21 Lovenox - SQ 40 mg DAILY JOHAN Administration Furosemide 40 mg 11/15/17 14:00 11/17/17 05:59 Lasix Injection - IVPUSH 40 mg BID@0600,1400 JOHAN Administration Insulin Aspart 1 vial 11/15/17 11:00 11/17/17 06:04 Novolog Vial Sliding Scale - SQ 2 units ACHS JOHAN Administration Protocol Lisinopril 10 mg 11/16/17 11:30 Prinivil PO DAILY [facility] Methimazole 10 mg 11/17/17 10:00 Tapazole - PO BID [facility] Mupirocin 1 applic 11/15/17 22:00 11/16/17 21:12 Bactroban Ointment (For Decolonization) - NS 11/20/17 21:59 1 applic BID JOHAN Administration Nitrofurantoin Macrocrystals 100 mg 11/17/17 09:00 Macrodantin - PO Q12H JOHAN Perphenazine 8 mg 11/15/17 22:00 11/16/17 21:12 Trilafon PO 8 mg HS JOHAN Administration ASSESSMENT/PLAN: Patient is a 67 year old female with a significant past medical history of hypertension, CHF, CAD s/p TX with stents, hyperlipidemia, diabetes mellitus with retinopathy and neuropathy, falls and psyche history of schizophrenia. The patient is from [facility] assisted and EMS was called by facility when patient was noted to be in extreme respiratory distress. She was intubated in the field and brought to the ED. No history of intubations in the past. Pulm: Acute on chronic respiratory failure/COPD exacerbation: Patient is a long time current every day smoker of 1.5 pack per day. No history of intubation in the past, not home oxygen dependent. On admission was found to have acute hypoxia secondary to COPD exacerbation and CHF. Intubated on admission, extubated on 11/16/17. Now on 4 liters of nasal cannula. Monitor airway, wean off oxygen as tolerated. Duonebs for shortness of breath/wheezing. ID: Urinary tract infection: multiple allergies to antibiotics, started on macrodantin Card: Acute on Chronic Diastolic Heart Failure: On Lasix 40mg bid and has been diuresed 113kg>105kg. Echo shows LV normal, ef 60%, rv normal, mild mr. Monitor renal function. Hypertension: elevated this morning and then improved. Will monitor and uptitrate meds prn. on clonidine, coreq. CAD s/p TX with stents: on Coreq, Plavix HLD: on Lipitor Endocrine: Diabetes: on Novolog SS, started on levemir for elevated bgms. Psyche: Smoker: cessation discussed, nicotine patch. schizophrenia hx: on trilafon @ hs fen tolerating PO monitor electrolytes monitor nutrition prophylaxis ambulating with PT SCDs Visit type - Emergency Visit Emergency Visit: Yes ED Registration Date: 11/15/17 Care time: The patient presented to the Emergency Department on the above date and was hospitalized for further evaluation of their emergent condition. - New Patient This patient is new to me today: Yes Date on this admission: 11/17/17 - Critical Care Critical Care patient: No - Discharge Referral [facility] Med P.C.: No
[2017-11-17] MEDS ORDERED: NITROFURANTOIN MACROCRYSTAL 50 MG CAPSULE (FP) PO SCH (09:00)
[2017-11-17] MEDS ORDERED: PT OWN MED DRAWER 7, Y5N ONE ×2 (09:21→21:21)
[2017-11-17] MEDS: CARVEDILOL 25 MG TABLET (FP) PO SCH ×2 (09:24→21:17)
[2017-11-17] MEDS: CLOPIDOGREL BISULFATE 75 MG TABLET (FP) PO SCH (09:24)
[2017-11-17] MEDS: cloNIDine HCL 0.1 MG TABLET PO SCH ×2 (09:24→21:19)
[2017-11-17] MEDS: MUPIROCIN 2% TOPICAL OINTMENT FOR DECOLONIZATION NS SCH (09:25)
[2017-11-17] MEDS: ENOXAPARIN NA (PORCINE) 40 MG/0.4 ML DISP.SYRIN SQ SCH (09:25)
[2017-11-17] MEDS ORDERED: METHIMAZOLE 10 MG TABLET (FP) PO SCH (10:00)
[2017-11-17] MEDS ORDERED: INSULIN (NOVOLOG) ASPART 100 UNITS/ML 10ML VIAL ONE (11:14)
[2017-11-17] MEDS ORDERED: RAMIPRIL 5 MG CAPSULE (FP) PO SCH (11:30)
--- NOTE | 2017-11-17 12:06 | PN ---
Teaching Attending Note Name of Resident: Manjit Osei ATTENDING PHYSICIAN STATEMENT I saw and evaluated the patient. I reviewed the resident's note and discussed the case with the resident. I agree with the resident's findings and plan as documented. SUBJECTIVE: Pt seen and examined in the ICU. Extubated yesterday without incident. Denies shortness of breath or chest pain. Diuresing well. OBJECTIVE: Vital Signs Period Temp Pulse Resp BP Sys/Calero Pulse Ox Last 24 Hr 98.6 F-99.5 F 57-68 16-20 153-188/65-90 98-99 Intake & Output 11/14/17 11/15/17 11/16/17 11/17/17 23:59 23:59 23:59 23:59 Intake Total 304 491.2 400 Output Total 2525 2350 1000 Balance -2221 -1858.8 -600 Weight 106 kg 105.29 kg 105.829 kg Gen: NAD at rest Heart: RRR Lung: decreased breath sounds at the bases Abd: soft, nontender Ext: + edema CBC, BMP 11/17/17 05:30 11/17/17 05:30 Active Medications Acetaminophen (Tylenol -) 650 mg PO Q6H PRN PRN Reason: FEVER Last Admin: 11/16/17 21:12 Dose: 650 mg Albuterol/Ipratropium (Duoneb -) 1 amp NEB RQID [facility] Last Admin: 11/17/17 08:29 Dose: 1 amp Atorvastatin Calcium (Lipitor -) 10 mg PO [facility] Last Admin: 11/16/17 21:12 Dose: 10 mg Carvedilol (Coreg -) 50 mg PO BID [facility] Last Admin: 11/17/17 09:24 Dose: 50 mg Chlorhexidine Gluconate (Hibiclens For Decolonization -) 1 applic TP [facility] Last Admin: 11/16/17 21:14 Dose: 1 applic Clonidine (Catapres -) 0.1 mg PO BID [facility] Last Admin: 11/17/17 09:24 Dose: 0.1 mg Clopidogrel Bisulfate (Plavix -) 75 mg PO DAILY [facility] Last Admin: 11/17/17 09:24 Dose: 75 mg Enoxaparin Sodium (Lovenox -) 40 mg SQ DAILY [facility] Last Admin: 11/17/17 09:25 Dose: 40 mg Furosemide (Lasix Injection -) 40 mg IVPUSH BID@0600,1400 [facility] Last Admin: 11/17/17 05:59 Dose: 40 mg Insulin Aspart (Novolog Vial Sliding Scale -) 1 vial SQ ACHS [facility]; Protocol Last Admin: 11/17/17 11:15 Dose: 6 units Methimazole (Tapazole -) 10 mg PO BID [facility] Last Admin: 11/17/17 11:11 Dose: 10 mg Mupirocin (Bactroban Ointment (For Decolonization) -) 1 applic NS BID [facility] Stop: 11/20/17 21:59 Last Admin: 11/17/17 09:25 Dose: 1 applic Nitrofurantoin Macrocrystals (Macrodantin -) 100 mg PO Q12H [facility] Perphenazine (Trilafon) 8 mg PO HS [facility] Last Admin: 11/16/17 21:12 Dose: 8 mg Ramipril (Altace -) 10 mg PO BID [facility] ASSESSMENT AND PLAN: Acute Hypoxic and Hypercapneic Respiratory Failure UTI Acute on Chronic Diastolic Heart Failure COPD HTN DM Smoker - continue antibiotics for UTI - continue IV lasix - monitor urine output, creatinine - daily weights - replete lytes - beta parth, HILLARY-I - inhaled bronchodilators - can defer systemic steroids at this time - taper FiO2 to keep Spo2 >90% - DVT/GI prophylaxis - can monitor on floor
[2017-11-17 14:19] VITALS: BMI 37.5
[2017-11-17] MEDS: NITROFURANTOIN MACROCRYSTAL 50 MG CAPSULE (FP) PO SCH ×2 (15:11→20:30)
--- NOTE | 2017-11-17 18:24 | CON.CARD ---
Consult Consult Specialty:: cardiology Reason for Consultation:: shortness of breath; HTN - History of Present Illness Chief Complaint: Pt A&Ox3; no chest pain or dyspnea presently. History of Present Illness: The patient is a 67 year old female brought in by EMS, with a past medical history of PVD, CHF, COPD, diabetes, heart disease, HTN, HLD, chronic edema, and schizophrenia, who presents to the emergency department for evaluation of respiratory distress. The patient was intubated en route to ED by EMS for resp distress w/ inability to tolerate CPAP in the field. Pt notably hypertensive both in the field and in the ER. Patient is taking 40mg of Lasix 2x daily. Unable to obtain narrative history secondary to patients current clinical condition. Allergies: Ciprofloxacin, erythromycin base, penicillins, shellfish Social History: As per EMS, smokes a pack and a half per day. No reported alcohol or drug use. 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 Cardio/Vascular: Yes: CHF Reproductive: Yes: Postmenopausal ...: No Psych: Yes: Schizophrenia (1) - Alcohol/Substance Use Hx Alcohol Use: No - Smoking History Smoking history: Unknown if ever smoked Have you smoked in the past 12 months: No Home Medications - Allergies Allergies/Adverse Reactions: Allergies Allergy/AdvReac Type Severity Reaction Status Date / Time ciprofloxacin [From Cipro] Allergy Verified 11/15/17 06:03 erythromycin base Allergy Verified 11/15/17 06:03 Penicillins Allergy Verified 11/15/17 06:03 shellfish derived Allergy Verified 11/15/17 06:03 - Home Medications Home Medications: Ambulatory Orders Bismuth Subsalicylate [Pepto-Bismol -] 524 mg PO DAILY PRN 11/15/17 Bismuth Subsalicylate [[place] Bismuth] 15 ml PO DAILY PRN 11/15/17 Calcium Carbonate/Vitamin D3 [Calcium 600 + Vit D 200 Tablet] 1 each PO BID 10/26 Carvedilol [Coreg -] 50 mg PO BID 11/15/17 Clonidine HCl [Catapres] 0.1 mg PO BID 11/15/17 Clopidogrel Bisulfate [Plavix] 75 mg PO DAILY 11/15/17 Diphenoxylate HCl/Atropine [Lomotil Tablet] 1 each PO DAILY 11/15/17 Famotidine [Pepcid -] 20 mg PO DAILY 11/15/17 Furosemide [Lasix -] 40 mg PO BID 11/15/17 Glimepiride 4 mg PO BID 11/15/17 Metformin HCl [Metformin HCl ER] 1,000 mg PO BID 11/15/17 Methimazole [Tapazole -] 10 mg PO BID 11/15/17 Perphenazine [Trilafon] 8 mg PO HS 11/15/17 Petrolatum,White [Aquaphor] 85 gm TP DAILY 11/15/17 Simethicone [Anti-Gas] 180 mg PO TID PRN 11/15/17 Simvastatin [Zocor -] 10 mg PO DAILY 11/15/17 Sitagliptin Phos/Metformin HCl [Janumet Xr 100-1,000 mg Tablet] 1 tab PO DAILY 11/15/17 Zolpidem Tartrate [Ambien] 10 mg PO HS 11/15/17 Family Disease History - Family Disease History Family History: Denies Review of Systems - Review of Systems Constitutional: reports: No Symptoms Eyes: reports: No Symptoms Vital Signs: Vital Signs Temperature 99.5 F 11/17/17 10:00 Pulse Rate 60 11/17/17 12:00 Respiratory Rate 18 11/17/17 12:00 Blood Pressure 158/62 11/17/17 12:00 O2 Sat by Pulse Oximetry (%) 98 11/17/17 10:54 - Other Data Labs, Other Data: CBC, BMP 11/17/17 05:30 11/17/17 05:30 INR, PTT INR 1.02 (0.83-1.09) 11/15/17 06:05 Problem List - Problems (1) Acute respiratory failure Code(s): J96.00 - ACUTE RESPIRATORY FAILURE, UNSP W HYPOXIA OR HYPERCAPNIA (2) Schizophrenia Code(s): F20.9 - SCHIZOPHRENIA, UNSPECIFIED (3) HTN (hypertension) Code(s): I10 - ESSENTIAL (PRIMARY) HYPERTENSION (4) Hyperlipidemia Code(s): E78.5 - HYPERLIPIDEMIA, UNSPECIFIED (5) Diabetes Code(s): E11.9 - TYPE 2 DIABETES MELLITUS WITHOUT COMPLICATIONS (6) Obesity Code(s): E66.9 - OBESITY, UNSPECIFIED (7) COPD (chronic obstructive pulmonary disease) Code(s): J44.9 - CHRONIC OBSTRUCTIVE PULMONARY DISEASE, UNSPECIFIED (8) PVD (peripheral vascular disease) Code(s): I73.9 - PERIPHERAL VASCULAR DISEASE, UNSPECIFIED
--- NOTE | 2017-11-17 19:20 | PN ---
Physical Exam: SUBJECTIVE: Patient seen and examined this am and afternoon in icu. Pt sitting in bed with son Lavon at bedside. States she is feeling much better though endorses some nasal and sinus congestion. OBJECTIVE: Vital Signs Period Temp Pulse Resp BP Sys/Calero Pulse Ox Last 24 Hr 98.6 F-99.5 F 57-68 16-20 153-188/62-90 98-99 GENERAL: AAOx3. HEAD: NC/AT EYES: EOMI ENT: MMM, missing teeth. NECK: Supple LUNGS: Dec BS throughout HEART: RRR, No MRG S1 S2 ABDOMEN: NT, ND, No HSM EXTREMITIES: B/L edema lower extremities NEUROLOGICAL: no Neuro deficits PSYCH: Depression, Schizophrenia SKIN: Venous stasis lower extremities Laboratory Results - last 24 hr 11/16/17 11/17/17 11/17/17 20:57 05:30 05:30 WBC 8.5 RBC 3.73 Hgb 11.1 Hct 32.6 MCV 87.5 MCH 29.7 MCHC 33.9 RDW 15.7 H Plt Count 211 MPV 8.1 Sodium 144 Potassium 3.6 Chloride 105 Carbon Dioxide 28 Anion Gap 11 BUN 20 H Creatinine 0.6 Creat Clearance w eGFR > 60 POC Glucometer [phone] Random Glucose 186 H Calcium 8.3 L Phosphorus 3.8 Magnesium 2.1 Total Bilirubin 0.4 AST 8 L ALT 11 L Alkaline Phosphatase 84 Total Protein 5.8 L Albumin 2.8 L 11/17/17 11/17/17 11/17/17 05:46 11:07 17:09 WBC RBC Hgb Hct MCV MCH MCHC RDW Plt Count MPV Sodium Potassium Chloride Carbon Dioxide Anion Gap BUN Creatinine Creat Clearance w eGFR POC Glucometer [phone] 265 Random Glucose Calcium Phosphorus Magnesium Total Bilirubin AST ALT Alkaline Phosphatase Total Protein Albumin Active Medications Generic Name Dose Route Start Last Admin Trade Name Freq PRN Reason Stop Dose Admin Acetaminophen 650 mg 11/17/17 14:32 Tylenol - PO Q6H PRN FEVER Albuterol/Ipratropium 1 amp 11/17/17 16:00 11/17/17 17:00 Duoneb - NEB 1 amp RQID JOHAN Administration Atorvastatin Calcium 10 mg 11/17/17 22:00 Lipitor - PO HS JOHAN Carvedilol 50 mg 11/17/17 22:00 Coreg - PO BID JOHAN Clonidine 0.1 mg 11/17/17 22:00 Catapres - PO BID [facility] Clopidogrel Bisulfate 75 mg 11/18/17 10:00 Plavix - PO DAILY [facility] Enoxaparin Sodium 40 mg 11/18/17 10:00 Lovenox - SQ DAILY [facility] Furosemide 40 mg 11/18/17 06:00 Lasix Injection - IVPUSH BID@0600,1400 [facility] Insulin Aspart 1 vial 11/17/17 16:30 11/17/17 17:12 Novolog Vial Sliding Scale - SQ 6 units ACHS [facility] Administration Protocol Insulin Detemir 10 units 11/17/17 22:00 Levemir Vial SQ HS [facility] Methimazole 10 mg 11/17/17 22:00 Tapazole - PO BID [facility] Nitrofurantoin Macrocrystals 50 mg 11/17/17 15:00 11/17/17 15:11 Macrodantin - PO 50 mg Q6HPO [facility] Administration Perphenazine 8 mg 11/17/17 22:00 Trilafon PO HS [facility] Ramipril 10 mg 11/17/17 22:00 Altace - PO BID [facility] ASSESSMENT/PLAN: 67 y/o lady who presented to [facility] from [facility] by EMS. Per assisted living staff, pt was in respiratory distress and hypoxic resp failure and was intubated by EMS on her way to hospital after she was unable to tolerate CPAP in the field. Neuro: Schizophrenia -Perphenazine 8 mg PO HS Head CT 11/16/17-->Moderate atrophy without gross evidence of acute intracranial pathology. Cardio: CHF, HTN - Lisinopril switched to Ramipril 10 mg po bid today -Furosemide 40 mg IVPUSH BID -Catapres 0.1 mg PO BID -Coreg 50 mg PO BID - Lipitor 10 mg PO Resp: Acute Hypoxic and Hypercapneic Respiratory Failure possibly 2/2 COPD Exacerbation/CHF - 4L NC - Albuterol/Ipratropium Chest X-Ray 11/17/17--> Left basilar, retrocardiac opacity likely combination of pleural effusion, compressive atelectasis, pneumonia. I.D- UTI trace leukocyte esterase -Allergic to penicillin--> Ceftriaxone not given.---> Nitrofurantoin Endo-DM2 Novolog Sliding Scale DVT ppx: Lovenox 40 mg SQ Daily FEN No Fluids Monitor Electrolytes Full Liquid Diabetic Diet Visit type - Emergency Visit Emergency Visit: Yes ED Registration Date: 11/15/17 Care time: The patient presented to the Emergency Department on the above date and was hospitalized for further evaluation of their emergent condition. - New Patient This patient is new to me today: No - Critical Care Critical Care patient: Yes Total Critical Care Time (in minutes): 35 Critical Care Statement: The care of this patient involved high complexity decision making to prevent further life threatening deterioration of the patient 's condition and/or to evaluate & treat vital organ system(s) failure or risk of failure.
[2017-11-17] MEDS: ACETAMINOPHEN 325 MG TABLET (FP) PO PRN (20:08)
[2017-11-17 21:14] LABS: CHOLESTEROL 174 mg/dL (50-200)
[2017-11-17 21:17] LABS: HDL CHOLESTEROL 45 mg/dL (40-60); TRIGLYCERIDES 364 mg/dL (35-160)
[2017-11-17] MEDS: ATORVASTATIN CA 10 MG TABLET (FP) PO SCH (21:17)
[2017-11-17] MEDS: RAMIPRIL 5 MG CAPSULE (FP) PO SCH ×2 (21:18→21:42)
[2017-11-17] MEDS: NICOTINE 21 MG/24 HOURS TOPICAL PATCH TD SCH (21:18)
[2017-11-17] MEDS: METHIMAZOLE 10 MG TABLET (FP) PO SCH (21:19)
[2017-11-17] MEDS: INSULIN (LEVEMIR) 100 UNITS/ML UNITS SQ SCH (21:32)
[2017-11-17] MEDS: PERPHENAZINE 4 MG TABLET PO SCH (23:00)
[2017-11-18] MEDS: NITROFURANTOIN MACROCRYSTAL 50 MG CAPSULE (FP) PO SCH ×5 (00:38→23:45)
[2017-11-18] MEDS: ACETAMINOPHEN 325 MG TABLET (FP) PO PRN ×3 (02:32→16:56)
[2017-11-18] MEDS: FUROSEMIDE 40 MG/4 ML INJECTABLE VIAL IVPUSH SCH ×2 (05:57→15:29)
[2017-11-18] MEDS: INSULIN SLIDING SCALE (NOVOLOG) 1 VIAL SQ SCH ×4 (06:31→22:06)
[2017-11-18] MEDS ORDERED: INSULIN (NOVOLOG) ASPART 100 UNITS/ML 10ML VIAL ONE ×2 (06:33→22:01)
[2017-11-18 08:20] LABS: HEMATOCRIT 34.1 % (32.4-45.2); HEMOGLOBIN 11.4 GM/dL (10.7-15.3); MCH 29.4 pg (25.7-33.7); MCHC 33.4 g/dl (32.0-36.0); MEAN CELL VOLUME 87.9 fl (80-96); PLATELET COUNT 229 K/MM3 (134-434); RBC 3.88 M/mm3 (3.60-5.2); RDW 15.6 % (11.6-15.6); WHITE BLOOD COUNT 8.3 K/mm3 (4.0-10.0)
[2017-11-18] MEDS: ALBUTEROL SO4 2.5/IPRATROPIUM 0.5 INH SOL 3 ML VIAL.NEB. NEB SCH ×4 (08:35→20:35)
--- NOTE | 2017-11-18 08:46 | PN ---
Physical Exam: SUBJECTIVE: Patient seen and examined at the bedside. OBJECTIVE: Patient to be discharged to rehab once bed available. 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 Patient is adamantly refusing, states "I have too much going on" and "not now". Vital Signs Period Temp Pulse Resp BP Sys/Calero Pulse Ox Last 24 Hr 98.4 F-99.6 F 60-80 18-20 144-188/62-88 98-98 GENERAL: The patient is awake, alert, in no acute distress. HEAD: Normal with no signs of trauma. EYES: PERRL, extraocular movements intact, sclera anicteric, conjunctiva clear. No ptosis. ENT: Ears normal, nares patent, oropharynx clear without exudates NECK: Trachea midline, full range of motion, supple. LUNGS: Breath sounds equal, mild congestion on left upper lobe, tolerating 4 liters NC HEART: Regular rate and rhythm. ABDOMEN: Soft, nontender, nondistended, normoactive bowel sounds EXTREMITIES: left lower ext with non pitting edema, right lower ext non pitting edema. left > right NEUROLOGICAL: Normal speech, gait not observed. PSYCH: Normal mood, normal affect. SKIN: Warm, dry, normal turgor, no rashes or lesions noted Laboratory Results - last 24 hr 11/17/17 11/17/17 11/17/17 05:46 11:07 17:09 WBC RBC Hgb Hct MCV MCH MCHC RDW Plt Count MPV POC Glucometer 193.44156 258.98792 265 Triglycerides Cholesterol Total LDL Cholesterol HDL Cholesterol TSH 11/17/17 11/17/17 11/17/17 19:45 19:45 21:30 WBC RBC Hgb Hct MCV MCH MCHC RDW Plt Count MPV POC Glucometer 217 Triglycerides 364 H Cholesterol 174 Total LDL Cholesterol 84 HDL Cholesterol 45 TSH 2.65 11/18/17 11/18/17 05:54 07:32 WBC 8.3 RBC 3.88 Hgb 11.4 Hct 34.1 MCV 87.9 MCH 29.4 MCHC 33.4 RDW 15.6 Plt Count 229 MPV 8.0 POC Glucometer 174 Triglycerides Cholesterol Total LDL Cholesterol HDL Cholesterol TSH Active Medications Generic Name Dose Route Start Last Admin Trade Name Freq PRN Reason Stop Dose Admin Acetaminophen 650 mg 11/17/17 14:32 11/18/17 02:32 Tylenol - PO 650 mg Q6H PRN Administration FEVER Albuterol/Ipratropium 1 amp 11/17/17 16:00 11/18/17 08:35 Duoneb - NEB 1 amp RQID JOHAN Administration Atorvastatin Calcium 10 mg 11/17/17 22:00 11/17/17 21:17 Lipitor - PO 10 mg HS JOHAN Administration Carvedilol 50 mg 11/17/17 22:00 11/17/17 21:17 Coreg - PO 50 mg BID JOHAN Administration Clonidine 0.1 mg 11/17/17 22:00 11/17/17 21:19 Catapres - PO 0.1 mg BID JOHAN Administration Clopidogrel Bisulfate 75 mg 11/18/17 10:00 Plavix - PO DAILY JOHAN Enoxaparin Sodium 40 mg 11/18/17 10:00 Lovenox - SQ DAILY J[facility] Furosemide 40 mg 11/18/17 06:00 11/18/17 05:57 Lasix Injection - IVPUSH 40 mg BID@0600,1400 JOHAN Administration Insulin Aspart 1 vial 11/17/17 16:30 11/18/17 06:31 Novolog Vial Sliding Scale - SQ 2 units ACHS JOHAN Administration Protocol Insulin Detemir 10 units 11/17/17 22:00 11/17/17 21:32 Levemir Vial SQ 10 units HS JOHAN Administration Methimazole 10 mg 11/17/17 22:00 11/17/17 21:19 Tapazole - PO 10 mg BID JOHAN Administration Nicotine 21 mg 11/17/17 19:30 11/17/17 21:18 Nicoderm Patch - TD 21 mg DAILY JOHAN Administration Nitrofurantoin Macrocrystals 50 mg 11/17/17 15:00 11/18/17 05:57 Macrodantin - PO 50 mg Q6HPO JOHAN Administration Perphenazine 8 mg 11/17/17 22:00 11/17/17 23:00 Trilafon PO 8 mg HS JOHAN Administration Ramipril 10 mg 11/17/17 22:00 11/17/17 21:42 Altace - PO Not Given BID [facility] ASSESSMENT/PLAN: Patient is a 67 year old female with a significant past medical history of hypertension, CHF, CAD s/p OH with stents, hyperlipidemia, diabetes mellitus with retinopathy and neuropathy, falls and psyche history of schizophrenia. The patient is from [facility] assisted and EMS was called by facility when patient was noted to be in extreme respiratory distress. She was intubated in the field and brought to the ED. No history of intubations in the past. Pulm: Acute on chronic respiratory failure/COPD exacerbation: Patient is a long time current every day smoker of 1.5 pack per day. No history of intubation in the past, not home oxygen dependent. On admission was found to have acute hypoxia secondary to COPD exacerbation and CHF. Intubated on admission, extubated on 11/16/17. Now on 4 liters of nasal cannula. Monitor airway, wean off oxygen as tolerated. Duonebs for shortness of breath/wheezing. ID: Urinary tract infection: multiple allergies to antibiotics, started on macrodantin Card: Acute on Chronic Diastolic Heart Failure: On Lasix 40mg bid and has been diuresed 113kg>105kg. Echo shows LV normal, ef 60%, rv normal, mild mr. Monitor renal function. Hypertension: improving. Will monitor and uptitrate meds prn. on clonidine, coreq. altace bid, cardiology following. CAD s/p OH with stents: on Coreq, Plavix HLD: on Lipitor Endocrine: Diabetes: on Novolog SS, started on levemir for elevated bgms. Psyche: Smoker: cessation discussed schizophrenia hx: on trilafon @ hs fen tolerating PO monitor electrolytes monitor nutrition prophylaxis ambulating with PT SCDs Visit type - Emergency Visit Emergency Visit: Yes ED Registration Date: 11/15/17 Care time: The patient presented to the Emergency Department on the above date and was hospitalized for further evaluation of their emergent condition. - New Patient This patient is new to me today: No - Critical Care Critical Care patient: No - Discharge Referral Referred to [facility] Med P.C.: No
[2017-11-18] MEDS ORDERED: PT OWN MED DRAWER 7, Y5N ONE ×3 (09:14→21:24)
[2017-11-18] MEDS: CLOPIDOGREL BISULFATE 75 MG TABLET (FP) PO SCH (09:17)
[2017-11-18] MEDS: ENOXAPARIN NA (PORCINE) 40 MG/0.4 ML DISP.SYRIN SQ SCH (09:17)
[2017-11-18] MEDS: CARVEDILOL 25 MG TABLET (FP) PO SCH ×2 (09:17→21:52)
[2017-11-18] MEDS: cloNIDine HCL 0.1 MG TABLET PO SCH ×2 (09:18→21:54)
[2017-11-18] MEDS: METHIMAZOLE 10 MG TABLET (FP) PO SCH ×2 (09:18→21:54)
[2017-11-18] MEDS: RAMIPRIL 5 MG CAPSULE (FP) PO SCH ×3 (09:18→21:54)
[2017-11-18] MEDS: NICOTINE 21 MG/24 HOURS TOPICAL PATCH TD SCH (09:19)
[2017-11-18 09:32] LABS: ALK PHOS 93 U/L (45-117); ANION GAP 8 (8-16); BILIRUBIN,TOTAL 0.5 mg/dL (0.2-1.0); BLOOD UREA NITROGEN 24 mg/dL (7-18); CALCIUM 8.4 mg/dL (8.5-10.1); CHLORIDE 104 mmol/L (98-107); CO2 30 mmol/L (21-32); CREATININE 0.7 mg/dL (0.55-1.02); GLUCOSE,RANDOM 163 mg/dL (74-106); MAGNESIUM 2.2 mg/dL (1.8-2.4); POTASSIUM 4.1 mmol/L (3.5-5.1); SGOT/AST 11 U/L (15-37); SGPT/ALT 11 U/L (12-78); SODIUM 142 mmol/L (136-145); TOT PROT 6.3 g/dl (6.4-8.2)
[2017-11-18 09:35] LABS: BASO % 0.5 % (0-2.0); EOS % 2.3 % (0-4.5); HEMATOCRIT 34.2 % (32.4-45.2); HEMOGLOBIN 11.4 GM/dL (10.7-15.3); LYMPH % 18.7 % (8-40); MCH 29.2 pg (25.7-33.7); MCHC 33.3 g/dl (32.0-36.0); MEAN CELL VOLUME 87.7 fl (80-96); MEAN PLT VOLUME 8.1 fl (7.5-11.1); MONO % 10.5 % (3.8-10.2); PLATELET COUNT 231 K/MM3 (134-434); RDW 15.4 % (11.6-15.6); WHITE BLOOD COUNT 8.5 K/mm3 (4.0-10.0)
--- NOTE | 2017-11-18 10:06 | PN ---
Progress Note (short form) - Note Progress Note: Breathing improving overall. NAD on RA. Son at the bedside. No CP. CXR: improving CHF pattern / LLL atelectasis OBJECTIVE: Intake & Output 11/15/17 11/16/17 11/17/17 11/18/17 23:59 23:59 23:59 23:59 Intake Total 304 491.2 1180 Output Total 2525 2350 1000 Balance -2221 -1858.8 180 Weight 233 lb 11.04 oz 232 lb 2 oz 233 lb 233 lb 1 oz Last Vital Signs Temp Pulse Resp BP Pulse Ox 98.6 F 72 20 187/71 98 11/18/17 09:25 11/18/17 09:25 11/18/17 09:25 11/18/17 09:25 11/17/17 21:00 Active Medications Acetaminophen (Tylenol -) 650 mg PO Q6H PRN PRN Reason: FEVER Last Admin: 11/18/17 09:19 Dose: 650 mg Albuterol/Ipratropium (Duoneb -) 1 amp NEB RQID [facility] Last Admin: 11/18/17 08:35 Dose: 1 amp Atorvastatin Calcium (Lipitor -) 10 mg PO [facility] Last Admin: 11/17/17 21:17 Dose: 10 mg Carvedilol (Coreg -) 50 mg PO BID [facility] Last Admin: 11/18/17 09:17 Dose: 50 mg Clonidine (Catapres -) 0.1 mg PO BID [facility] Last Admin: 11/18/17 09:18 Dose: 0.1 mg Clopidogrel Bisulfate (Plavix -) 75 mg PO DAILY [facility] Last Admin: 11/18/17 09:17 Dose: 75 mg Enoxaparin Sodium (Lovenox -) 40 mg SQ DAILY [facility] Last Admin: 11/18/17 09:17 Dose: 40 mg Furosemide (Lasix Injection -) 40 mg IVPUSH BID@0600,1400 [facility] Last Admin: 11/18/17 05:57 Dose: 40 mg Insulin Aspart (Novolog Vial Sliding Scale -) 1 vial SQ [facility]; Protocol Last Admin: 11/18/17 06:31 Dose: 2 units Insulin Detemir (Levemir Vial) 10 units SQ [facility] Last Admin: 11/17/17 21:32 Dose: 10 units Methimazole (Tapazole -) 10 mg PO BID [facility] Last Admin: 11/18/17 09:18 Dose: 10 mg Nicotine (Nicoderm Patch -) 21 mg TD DAILY [facility] Last Admin: 11/18/17 09:19 Dose: 21 mg Nitrofurantoin Macrocrystals (Macrodantin -) 50 mg PO Q6HPO [facility] Last Admin: 11/18/17 05:57 Dose: 50 mg Perphenazine (Trilafon) 8 mg PO HS [facility] Last Admin: 11/17/17 23:00 Dose: 8 mg Ramipril (Altace -) 10 mg PO BID [facility] Last Admin: 11/18/17 09:22 Dose: Not Given Gen: NAD at rest Heart: RRR Lung: decreased breath sounds at the bases, scattered rhonchi Abd: soft, nontender Ext: + edema Laboratory Results - last 24 hr 11/17/17 11/17/17 11/17/17 05:46 11:07 17:09 WBC RBC Hgb Hct MCV MCH MCHC RDW Plt Count MPV Absolute Neuts (auto) Neutrophils % Lymphocytes % Monocytes % Eosinophils % Basophils % Nucleated RBC % Sodium Potassium Chloride Carbon Dioxide Anion Gap BUN Creatinine Creat Clearance w eGFR POC Glucometer 193.65182 258.96253 265 Random Glucose Calcium Magnesium Total Bilirubin AST ALT Alkaline Phosphatase Total Protein Albumin Triglycerides Cholesterol Total LDL Cholesterol HDL Cholesterol TSH 11/17/17 11/17/17 11/17/17 19:45 19:45 21:30 WBC RBC Hgb Hct MCV MCH MCHC RDW Plt Count MPV Absolute Neuts (auto) Neutrophils % Lymphocytes % Monocytes % Eosinophils % Basophils % Nucleated RBC % Sodium Potassium Chloride Carbon Dioxide Anion Gap BUN Creatinine Creat Clearance w eGFR POC Glucometer 217 Random Glucose Calcium Magnesium Total Bilirubin AST ALT Alkaline Phosphatase Total Protein Albumin Triglycerides 364 H Cholesterol 174 Total LDL Cholesterol 84 HDL Cholesterol 45 TSH 2.65 11/18/17 11/18/17 11/18/17 05:54 07:32 09:00 WBC 8.3 8.5 RBC 3.88 3.90 Hgb 11.4 11.4 Hct 34.1 34.2 MCV 87.9 87.7 MCH 29.4 29.2 MCHC 33.4 33.3 RDW 15.6 15.4 Plt Count 229 231 MPV 8.0 8.1 Absolute Neuts (auto) 5.8 Neutrophils % 68.0 Lymphocytes % 18.7 Monocytes % 10.5 H Eosinophils % 2.3 D Basophils % 0.5 Nucleated RBC % 0 Sodium Potassium Chloride Carbon Dioxide Anion Gap BUN Creatinine Creat Clearance w eGFR POC Glucometer 174 Random Glucose Calcium Magnesium Total Bilirubin AST ALT Alkaline Phosphatase Total Protein Albumin Triglycerides Cholesterol Total LDL Cholesterol HDL Cholesterol TSH 11/18/17 09:00 WBC RBC Hgb Hct MCV MCH MCHC RDW Plt Count MPV Absolute Neuts (auto) Neutrophils % Lymphocytes % Monocytes % Eosinophils % Basophils % Nucleated RBC % Sodium 142 Potassium 4.1 Chloride 104 Carbon Dioxide 30 Anion Gap 8 BUN 24 H Creatinine 0.7 Creat Clearance w eGFR > 60 POC Glucometer Random Glucose 163 H Calcium 8.4 L Magnesium 2.2 Total Bilirubin 0.5 AST 11 L ALT 11 L Alkaline Phosphatase 93 Total Protein 6.3 L Albumin 3.0 L Triglycerides Cholesterol Total LDL Cholesterol HDL Cholesterol TSH ASSESSMENT AND PLAN: Acute Hypoxic and Hypercapneic Respiratory Failure UTI Acute on Chronic Diastolic Heart Failure COPD HTN DM Smoker - ABX for UTI - continue IV lasix - daily weights - replete lytes as needed - beta parth, HILLARY-I - inhaled bronchodilators - Defer systemic steroids at this time - O2 to keep Spo2 >90% - DVT/GI prophylaxis - Incentive Spirometry Dr Velazquez
[2017-11-18] MEDS ORDERED: FUROSEMIDE 40 MG TABLET (FP) PO SCH (14:00)
[2017-11-18] MEDS ORDERED: FUROSEMIDE 40 MG TABLET (FP) PO ONE (14:42)
[2017-11-18] MEDS: OMEGA-3 ACID ETHYL ESTERS (FATTY-ACIDS) 1 GM CAPSULE (FP) PO SCH (21:52)
[2017-11-18] MEDS: ATORVASTATIN CA 10 MG TABLET (FP) PO SCH (21:53)
[2017-11-18] MEDS: PERPHENAZINE 4 MG TABLET PO SCH (21:55)
[2017-11-18] MEDS: INSULIN (LEVEMIR) 100 UNITS/ML UNITS SQ SCH (22:06)
[2017-11-19] MEDS: ACETAMINOPHEN 325 MG TABLET (FP) PO PRN ×3 (05:10→18:26)
[2017-11-19] MEDS: NITROFURANTOIN MACROCRYSTAL 50 MG CAPSULE (FP) PO SCH ×3 (06:22→17:49)
[2017-11-19] MEDS: INSULIN SLIDING SCALE (NOVOLOG) 1 VIAL SQ SCH ×4 (06:23→21:54)
[2017-11-19 07:16] LABS: BASO % 0.5 % (0-2.0); EOS % 1.7 % (0-4.5); HEMATOCRIT 30.4 % (32.4-45.2); HEMOGLOBIN 10.5 GM/dL (10.7-15.3); LYMPH % 19.9 % (8-40); MCH 30.1 pg (25.7-33.7); MCHC 34.5 g/dl (32.0-36.0); MEAN CELL VOLUME 87.3 fl (80-96); MEAN PLT VOLUME 8.1 fl (7.5-11.1); MONO % 12.5 % (3.8-10.2); NEUT % 65.4 % (42.8-82.8); PLATELET COUNT 212 K/MM3 (134-434); RBC 3.48 M/mm3 (3.60-5.2); RDW 15.4 % (11.6-15.6)
[2017-11-19] MEDS: ALBUTEROL SO4 2.5/IPRATROPIUM 0.5 INH SOL 3 ML VIAL.NEB. NEB SCH ×4 (07:20→21:00)
[2017-11-19 07:36] LABS: CHLORIDE 104 mmol/L (98-107); POTASSIUM 4.1 mmol/L (3.5-5.1); SODIUM 140 mmol/L (136-145)
[2017-11-19 07:50] LABS: ALBUMIN 2.8 g/dl (3.4-5.0); ALK PHOS 96 U/L (45-117); ANION GAP 8 (8-16); BILIRUBIN,TOTAL 0.3 mg/dL (0.2-1.0); BLOOD UREA NITROGEN 29 mg/dL (7-18); CALCIUM 8.1 mg/dL (8.5-10.1); CO2 28 mmol/L (21-32); CREATININE 0.8 mg/dL (0.55-1.02); GLUCOSE,RANDOM 227 mg/dL (74-106); MAGNESIUM 2.4 mg/dL (1.8-2.4); SGOT/AST 10 U/L (15-37); SGPT/ALT 10 U/L (12-78); TOT PROT 5.9 g/dl (6.4-8.2)
--- NOTE | 2017-11-19 09:07 | EKG ---
Test Reason : Blood Pressure : / mmHG Vent. Rate : 059 BPM Atrial Rate : 059 BPM P-R Int : 198 ms QRS Dur : 092 ms QT Int : 444 ms P-R-T Axes : 019 -30 046 degrees QTc Int : 439 ms SINUS BRADYCARDIA WITH MARKED SINUS ARRHYTHMIA LEFT AXIS DEVIATION MINIMAL VOLTAGE CRITERIA FOR LVH, MAY BE NORMAL VARIANT ANTEROSEPTAL INFARCT (CITED ON OR BEFORE 15-NOV-2017) ABNORMAL ECG WHEN COMPARED WITH ECG OF 15-NOV-2017 05:52, VENT. RATE HAS DECREASED BY 33 BPM Confirmed by MARANDA CRUZ MD ([id number]) on 11/19/2017 9:07:17 AM Referred By: LIZETTE GONSALEZ Confirmed By:MARANDA CRUZ MD
[2017-11-19] MEDS ORDERED: PT OWN MED DRAWER 7, Y5N ONE ×5 (09:25→21:41)
[2017-11-19] MEDS: cloNIDine HCL 0.1 MG TABLET PO SCH ×2 (09:27→21:55)
[2017-11-19] MEDS: METHIMAZOLE 10 MG TABLET (FP) PO SCH ×2 (09:27→21:55)
[2017-11-19] MEDS: CARVEDILOL 25 MG TABLET (FP) PO SCH ×2 (09:27→21:53)
[2017-11-19] MEDS: RAMIPRIL 5 MG CAPSULE (FP) PO SCH ×3 (09:27→22:03)
[2017-11-19] MEDS: CLOPIDOGREL BISULFATE 75 MG TABLET (FP) PO SCH (09:27)
[2017-11-19] MEDS: OMEGA-3 ACID ETHYL ESTERS (FATTY-ACIDS) 1 GM CAPSULE (FP) PO SCH ×2 (09:27→21:54)
[2017-11-19] MEDS: NICOTINE 21 MG/24 HOURS TOPICAL PATCH TD SCH (09:28)
[2017-11-19] MEDS: ENOXAPARIN NA (PORCINE) 40 MG/0.4 ML DISP.SYRIN SQ SCH (09:28)
--- NOTE | 2017-11-19 10:28 | PN ---
Progress Note (short form) - Note Progress Note: Sleeping in NAD. No acute events overnight. No CP. SOB improving. OBJECTIVE: Intake & Output 11/16/17 11/17/17 11/18/17 11/19/17 23:59 23:59 23:59 23:59 Intake Total 491.2 1180 300 Output Total 2350 1000 Balance -1858.8 180 300 Weight 232 lb 2 oz 233 lb 233 lb 1 oz 224 lb 14.4 oz Last Vital Signs Temp Pulse Resp BP Pulse Ox 98.8 F 71 20 155/76 95 11/19/17 06:00 11/19/17 06:00 11/18/17 21:30 11/19/17 06:00 11/18/17 21:00 Active Medications Acetaminophen (Tylenol -) 650 mg PO Q6H PRN PRN Reason: FEVER Last Admin: 11/19/17 05:10 Dose: 650 mg Albuterol/Ipratropium (Duoneb -) 1 amp NEB RQID [facility] Last Admin: 11/19/17 07:20 Dose: 1 amp Atorvastatin Calcium (Lipitor -) [address] [facility] Last Admin: 11/18/17 21:53 Dose: 10 mg Carvedilol (Coreg -) 50 mg PO BID [facility] Last Admin: 11/19/17 09:27 Dose: 50 mg Clonidine (Catapres -) 0.1 mg PO BID [facility] Last Admin: 11/19/17 09:27 Dose: 0.1 mg Clopidogrel Bisulfate (Plavix -) 75 mg PO DAILY [facility] Last Admin: 11/19/17 09:27 Dose: 75 mg Enoxaparin Sodium (Lovenox -) 40 mg SQ DAILY [facility] Last Admin: 11/19/17 09:28 Dose: 40 mg Insulin Aspart (Novolog Vial Sliding Scale -) 1 vial SQ [facility]; Protocol Last Admin: 11/19/17 06:23 Dose: 4 units Insulin Detemir (Levemir Vial) [address] [facility] Last Admin: 11/18/17 22:06 Dose: 10 units Methimazole (Tapazole -) 10 mg PO BID [facility] Last Admin: 11/19/17 09:27 Dose: 10 mg Nicotine (Nicoderm Patch -) 21 mg TD DAILY [facility] Last Admin: 11/19/17 09:28 Dose: 21 mg Nitrofurantoin Macrocrystals (Macrodantin -) 50 mg PO Q6HPO [facility] Last Admin: 11/19/17 06:22 Dose: 50 mg Sumtz-3-Sqio Ethyl Esters (Lovaza -) 2 gm PO BID [facility] Last Admin: 11/19/17 09:27 Dose: 2 gm Perphenazine (Trilafon) 8 mg PO HS [facility] Last Admin: 11/18/17 21:55 Dose: 8 mg Ramipril (Altace -) 10 mg PO BID [facility] Last Admin: 11/19/17 09:27 Dose: Not Given Gen: NAD at rest Heart: RRR Lung: decreased breath sounds at the bases, scattered rhonchi Abd: soft, nontender Ext: + edema Laboratory Results - last 24 hr 11/18/17 11/18/17 11/18/17 11:58 18:13 22:05 WBC RBC Hgb Hct MCV MCH MCHC RDW Plt Count MPV Absolute Neuts (auto) Neutrophils % Lymphocytes % Monocytes % Eosinophils % Basophils % Nucleated RBC % Sodium Potassium Chloride Carbon Dioxide Anion Gap BUN Creatinine Creat Clearance w eGFR POC Glucometer 237 351 230 Random Glucose Calcium Magnesium Total Bilirubin AST ALT Alkaline Phosphatase Total Protein Albumin 11/19/17 11/19/17 11/19/17 06:00 06:00 06:22 WBC 8.0 RBC 3.48 L Hgb 10.5 L Hct 30.4 L MCV 87.3 MCH 30.1 MCHC 34.5 RDW 15.4 Plt Count 212 MPV 8.1 Absolute Neuts (auto) 5.2 Neutrophils % 65.4 Lymphocytes % 19.9 Monocytes % 12.5 H Eosinophils % 1.7 Basophils % 0.5 Nucleated RBC % 0 Sodium 140 Potassium 4.1 Chloride 104 Carbon Dioxide 28 Anion Gap 8 BUN 29 H Creatinine 0.8 Creat Clearance w eGFR > 60 POC Glucometer 247 Random Glucose 227 H Calcium 8.1 L Magnesium 2.4 Total Bilirubin 0.3 AST 10 L ALT 10 L Alkaline Phosphatase 96 Total Protein 5.9 L Albumin 2.8 L ASSESSMENT AND PLAN: Acute Hypoxic and Hypercapneic Respiratory Failure UTI Acute on Chronic Diastolic Heart Failure COPD HTN DM Smoker - ABX for UTI - Lasix - daily weights - replete lytes as needed - beta parth, HILLARY-I - inhaled bronchodilators - Defer systemic steroids at this time - O2 to keep Spo2 >90% - DVT/GI prophylaxis - Incentive Spirometry Dr Velazquez
--- NOTE | 2017-11-19 11:13 | PN ---
Physical Exam: SUBJECTIVE: Patient seen and examined OBJECTIVE: Patient to be discharged to rehab once bed available. Spoke to patient about cardiology recommendations that she have further cardiac workup up and the possibility of transfer to a cardiac labor utilization superintendent. Patient is adamantly refusing, states "I have too much going on" and "not now". Vital Signs Period Temp Pulse Resp BP Sys/Calero Pulse Ox Last 24 Hr 98.0 F-98.8 F 64-80 18-20 153-155/66-76 95 GENERAL: The patient is awake, alert, in no acute distress. HEAD: Normal with no signs of trauma. EYES: PERRL, extraocular movements intact, sclera anicteric, conjunctiva clear. No ptosis. ENT: Ears normal, nares patent, oropharynx clear without exudates NECK: Trachea midline, full range of motion, supple. LUNGS: Breath sounds equal, mild congestion on left upper lobe, tolerating 4 liters NC HEART: Regular rate and rhythm. ABDOMEN: Soft, nontender, nondistended, normoactive bowel sounds EXTREMITIES: left lower ext with non pitting edema, right lower ext non pitting edema. left > right NEUROLOGICAL: Normal speech, gait not observed. PSYCH: Normal mood, normal affect. SKIN: Warm, dry, normal turgor, no rashes or lesions noted Laboratory Results - last 24 hr 11/18/17 11/18/17 11/18/17 11:58 18:13 22:05 WBC RBC Hgb Hct MCV MCH MCHC RDW Plt Count MPV Absolute Neuts (auto) Neutrophils % Lymphocytes % Monocytes % Eosinophils % Basophils % Nucleated RBC % Sodium Potassium Chloride Carbon Dioxide Anion Gap BUN Creatinine Creat Clearance w eGFR POC Glucometer 237 351 230 Random Glucose Calcium Magnesium Total Bilirubin AST ALT Alkaline Phosphatase Total Protein Albumin 11/19/17 11/19/17 11/19/17 06:00 06:00 06:22 WBC 8.0 RBC 3.48 L Hgb 10.5 L Hct 30.4 L MCV 87.3 MCH 30.1 MCHC 34.5 RDW 15.4 Plt Count 212 MPV 8.1 Absolute Neuts (auto) 5.2 Neutrophils % 65.4 Lymphocytes % 19.9 Monocytes % 12.5 H Eosinophils % 1.7 Basophils % 0.5 Nucleated RBC % 0 Sodium 140 Potassium 4.1 Chloride 104 Carbon Dioxide 28 Anion Gap 8 BUN 29 H Creatinine 0.8 Creat Clearance w eGFR > 60 POC Glucometer 247 Random Glucose 227 H Calcium 8.1 L Magnesium 2.4 Total Bilirubin 0.3 AST 10 L ALT 10 L Alkaline Phosphatase 96 Total Protein 5.9 L Albumin 2.8 L Active Medications Generic Name Dose Route Start Last Admin Trade Name Freq PRN Reason Stop Dose Admin Acetaminophen 650 mg 11/17/17 14:32 11/19/17 05:10 Tylenol - PO 650 mg Q6H PRN Administration FEVER Albuterol/Ipratropium 1 amp 11/17/17 16:00 11/19/17 07:20 Duoneb - NEB 1 amp RQID JOHAN Administration Atorvastatin Calcium 10 mg 11/17/17 22:00 11/18/17 21:53 Lipitor - PO 10 mg HS JOHAN Administration Carvedilol 50 mg 11/17/17 22:00 11/19/17 09:27 Coreg - PO 50 mg BID JOHAN Administration Clonidine 0.1 mg 11/17/17 22:00 11/19/17 09:27 Catapres - PO 0.1 mg BID JOHAN Administration Clopidogrel Bisulfate 75 mg 11/18/17 10:00 11/19/17 09:27 Plavix - PO 75 mg DAILY JOHAN Administration Enoxaparin Sodium 40 mg 11/18/17 10:00 11/19/17 09:28 Lovenox - SQ 40 mg DAILY JOHAN Administration Insulin Aspart 1 vial 11/17/17 16:30 11/19/17 06:23 Novolog Vial Sliding Scale - SQ 4 units ACHS JOHAN Administration Protocol Insulin Detemir 10 units 11/17/17 22:00 11/18/17 22:06 Levemir Vial SQ 10 units HS JOHAN Administration Methimazole 10 mg 11/17/17 22:00 11/19/17 09:27 Tapazole - PO 10 mg BID JOHAN Administration Nicotine 21 mg 11/17/17 19:30 11/19/17 09:28 Nicoderm Patch - TD 21 mg DAILY JOHAN Administration Nitrofurantoin Macrocrystals 50 mg 11/17/17 15:00 11/19/17 06:22 Macrodantin - PO 50 mg Q6HPO JOHAN Administration Kfkma-1-Makz Ethyl Esters 2 gm 11/18/17 22:00 11/19/17 09:27 Lovaza - PO 2 gm BID JOHAN Administration Perphenazine 8 mg 08/09/18 22:00 11/18/17 21:55 Trilafon PO 8 mg HS JOHAN Administration Ramipril 10 mg 11/17/17 22:00 11/19/17 09:27 Altace - PO Not Given BID JOHAN ASSESSMENT/PLAN: Patient is a 67 year old female with a significant past medical history of hypertension, CHF, CAD s/p CO with stents, hyperlipidemia, diabetes mellitus with retinopathy and neuropathy, falls and psyche history of schizophrenia. The patient is from [facility] assisted and EMS was called by facility when patient was noted to be in extreme respiratory distress. She was intubated in the field and brought to the ED. No history of intubations in the past. Pulm: Acute on chronic respiratory failure/COPD exacerbation: Patient is a long time current every day smoker of 1.5 pack per day. No history of intubation in the past, not home oxygen dependent. On admission was found to have acute hypoxia secondary to COPD exacerbation and CHF. Intubated on admission, extubated on 11/16/17. Now on 4 liters of nasal cannula. Monitor airway, wean off oxygen as tolerated. Duonebs for shortness of breath/wheezing. ID: Urinary tract infection: multiple allergies to antibiotics, started on macrodantin Card: Acute on Chronic Diastolic Heart Failure: On Lasix 40mg bid and has been diuresed 113kg>105kg. Echo shows LV normal, ef 60%, rv normal, mild mr. Monitor renal function. Hypertension: improving. Will monitor and uptitrate meds prn. on clonidine, coreq. altace bid, cardiology following. CAD s/p CO with stents: on Coreq, Plavix HLD: on Lipitor Endocrine: Diabetes: on Novolog SS, started on levemir for elevated bgms. Psyche: Smoker: cessation discussed schizophrenia hx: on trilafon @ hs fen tolerating PO monitor electrolytes monitor nutrition prophylaxis ambulating with PT SCDs Visit type - Emergency Visit Emergency Visit: Yes ED Registration Date: 11/15/17 Care time: The patient presented to the Emergency Department on the above date and was hospitalized for further evaluation of their emergent condition. - New Patient This patient is new to me today: No - Critical Care Critical Care patient: No - Discharge Referral Referred to [facility] Med P.C.: No
[2017-11-19] MEDS: ATORVASTATIN CA 10 MG TABLET (FP) PO SCH (21:53)
[2017-11-19] MEDS: PERPHENAZINE 4 MG TABLET PO SCH (21:55)
[2017-11-19] MEDS: INSULIN (LEVEMIR) 100 UNITS/ML UNITS SQ SCH (21:56)
[2017-11-20] MEDS: NITROFURANTOIN MACROCRYSTAL 50 MG CAPSULE (FP) PO SCH ×3 (00:01→12:25)
[2017-11-20] MEDS: ACETAMINOPHEN 325 MG TABLET (FP) PO PRN ×3 (00:02→18:22)
[2017-11-20] MEDS: INSULIN SLIDING SCALE (NOVOLOG) 1 VIAL SQ SCH ×4 (06:34→22:13)
[2017-11-20] MEDS: ALBUTEROL SO4 2.5/IPRATROPIUM 0.5 INH SOL 3 ML VIAL.NEB. NEB SCH ×4 (07:15→20:22)
[2017-11-20 07:44] LABS: BASO % 0.6 % (0-2.0); EOS % 2.9 % (0-4.5); HEMATOCRIT 30.3 % (32.4-45.2); HEMOGLOBIN 10.1 GM/dL (10.7-15.3); LYMPH % 20.9 % (8-40); MCH 29.6 pg (25.7-33.7); MCHC 33.5 g/dl (32.0-36.0); MEAN CELL VOLUME 88.5 fl (80-96); MEAN PLT VOLUME 8.1 fl (7.5-11.1); MONO % 9.9 % (3.8-10.2); NEUT % 65.7 % (42.8-82.8); PLATELET COUNT 210 K/MM3 (134-434); RBC 3.42 M/mm3 (3.60-5.2); RDW 15.4 % (11.6-15.6); WHITE BLOOD COUNT 7.9 K/mm3 (4.0-10.0)
[2017-11-20 08:10] LABS: CHLORIDE 102 mmol/L (98-107); POTASSIUM 4.2 mmol/L (3.5-5.1); SODIUM 138 mmol/L (136-145)
[2017-11-20 08:24] LABS: ALBUMIN 2.7 g/dl (3.4-5.0); ALK PHOS 96 U/L (45-117); ANION GAP 7 (8-16); BILIRUBIN,TOTAL 0.3 mg/dL (0.2-1.0); BLOOD UREA NITROGEN 33 mg/dL (7-18); CALCIUM 7.7 mg/dL (8.5-10.1); CO2 29 mmol/L (21-32); CREATININE 0.8 mg/dL (0.55-1.02); GLUCOSE,RANDOM 215 mg/dL (74-106); SGOT/AST 11 U/L (15-37); SGPT/ALT 12 U/L (12-78); TOT PROT 5.9 g/dl (6.4-8.2)
--- NOTE | 2017-11-20 09:44 | PN ---
Progress Note (short form) - Note Progress Note: Sitting in bed on RA. Appears comfortable. Feels generalized weakness and fatigue. No acute events overnight. No CP. SOB improving. OBJECTIVE: Intake & Output 11/17/17 11/18/17 11/19/17 11/20/17 23:59 23:59 23:59 23:59 Intake Total 7364 389 5098 Output Total 1000 Balance 550 414 0615 Weight 233 lb 233 lb 1 oz 224 lb 14.4 oz 226 lb 4.8 oz Last Vital Signs Temp Pulse Resp BP Pulse Ox 98.7 F 61 20 159/71 93 L 11/20/17 06:00 11/20/17 06:00 11/19/17 22:00 11/20/17 06:00 11/19/17 22:00 Active Medications Acetaminophen (Tylenol -) 650 mg PO Q6H PRN PRN Reason: FEVER Last Admin: 11/20/17 06:39 Dose: 650 mg Albuterol/Ipratropium (Duoneb -) 1 amp NEB RQID [facility] Last Admin: 11/20/17 07:15 Dose: 1 amp Atorvastatin Calcium (Lipitor -) 10 mg PO [facility] Last Admin: 11/19/17 21:53 Dose: 10 mg Carvedilol (Coreg -) 50 mg PO BID [facility] Last Admin: 11/19/17 21:53 Dose: 50 mg Clonidine (Catapres -) 0.1 mg PO BID [facility] Last Admin: 11/19/17 21:55 Dose: 0.1 mg Clopidogrel Bisulfate (Plavix -) 75 mg PO DAILY [facility] Last Admin: 11/19/17 09:27 Dose: 75 mg Enoxaparin Sodium (Lovenox -) 40 mg SQ DAILY [facility] Last Admin: 11/19/17 09:28 Dose: 40 mg Insulin Aspart (Novolog Vial Sliding Scale -) 1 vial SQ [facility]; Protocol Last Admin: 11/20/17 06:34 Dose: 4 units Insulin Detemir (Levemir Vial) 10 units SQ [facility] Last Admin: 11/19/17 21:56 Dose: 10 units Methimazole (Tapazole -) 10 mg PO BID [facility] Last Admin: 11/19/17 21:55 Dose: 10 mg Nicotine (Nicoderm Patch -) 21 mg TD DAILY [facility] Last Admin: 11/19/17 09:28 Dose: 21 mg Nitrofurantoin Macrocrystals (Macrodantin -) 50 mg PO Q6HPO [facility] Last Admin: 11/20/17 06:35 Dose: 50 mg Mknpp-1-Jqud Ethyl Esters (Lovaza -) 2 gm PO BID [facility] Last Admin: 11/19/17 21:54 Dose: 2 gm Perphenazine (Trilafon) 8 mg PO HS [facility] Last Admin: 11/19/17 21:55 Dose: 8 mg Ramipril (Altace -) 10 mg PO BID [facility] Last Admin: 11/19/17 22:03 Dose: Not Given Gen: NAD at rest Heart: RRR Lung: decreased breath sounds at the bases, scattered rhonchi Abd: soft, nontender Ext: + edema Laboratory Results - last 24 hr 11/19/17 11/19/17 11/19/17 11:46 16:44 21:52 WBC RBC Hgb Hct MCV MCH MCHC RDW Plt Count MPV Absolute Neuts (auto) Neutrophils % Lymphocytes % Monocytes % Eosinophils % Basophils % Nucleated RBC % Sodium Potassium Chloride Carbon Dioxide Anion Gap BUN Creatinine Creat Clearance w eGFR POC Glucometer 313 271 233 Random Glucose Calcium Total Bilirubin AST ALT Alkaline Phosphatase Total Protein Albumin 11/20/17 11/20/17 11/20/17 05:46 06:00 06:00 WBC 7.9 RBC 3.42 L Hgb 10.1 L Hct 30.3 L MCV 88.5 MCH 29.6 MCHC 33.5 RDW 15.4 Plt Count 210 MPV 8.1 Absolute Neuts (auto) 5.2 Neutrophils % 65.7 Lymphocytes % 20.9 Monocytes % 9.9 Eosinophils % 2.9 Basophils % 0.6 Nucleated RBC % 0 Sodium 138 Potassium 4.2 Chloride 102 Carbon Dioxide 29 Anion Gap 7 L BUN 33 H Creatinine 0.8 Creat Clearance w eGFR > 60 POC Glucometer 234 Random Glucose 215 H Calcium 7.7 L Total Bilirubin 0.3 AST 11 L ALT 12 Alkaline Phosphatase 96 Total Protein 5.9 L Albumin 2.7 L ASSESSMENT AND PLAN: Acute Hypoxic and Hypercapneic Respiratory Failure UTI Acute on Chronic Diastolic Heart Failure COPD HTN DM Smoker - ABX for UTI - Lasix - daily weights - replete lytes as needed - beta parth, HILLARY-I - inhaled bronchodilators - Defer systemic steroids at this time - O2 to keep Spo2 >90% - DVT/GI prophylaxis - Incentive Spirometry - PT / Ambulate Dr Velazquez
[2017-11-20] MEDS ORDERED: PT OWN MED DRAWER 7, Y5N ONE ×2 (09:45→21:55)
[2017-11-20] MEDS: RAMIPRIL 5 MG CAPSULE (FP) PO SCH ×2 (10:18→22:09)
[2017-11-20] MEDS: cloNIDine HCL 0.1 MG TABLET PO SCH ×2 (10:19→22:11)
[2017-11-20] MEDS: CARVEDILOL 25 MG TABLET (FP) PO SCH ×2 (10:19→22:11)
[2017-11-20] MEDS: ENOXAPARIN NA (PORCINE) 40 MG/0.4 ML DISP.SYRIN SQ SCH (10:20)
[2017-11-20] MEDS: NICOTINE 21 MG/24 HOURS TOPICAL PATCH TD SCH (10:20)
[2017-11-20] MEDS: OMEGA-3 ACID ETHYL ESTERS (FATTY-ACIDS) 1 GM CAPSULE (FP) PO SCH ×2 (10:20→22:11)
[2017-11-20] MEDS: METHIMAZOLE 10 MG TABLET (FP) PO SCH ×2 (10:21→22:11)
[2017-11-20] MEDS: CLOPIDOGREL BISULFATE 75 MG TABLET (FP) PO SCH (10:21)
[2017-11-20] MEDS ORDERED: FUROSEMIDE 40 MG TABLET (FP) PO SCH (14:00)
--- NOTE | 2017-11-20 17:29 | PN ---
Physical Exam: SUBJECTIVE: Patient seen and examined at the bedside. Feels well, in no acute distress. OBJECTIVE: Vital Signs Period Temp Pulse Resp BP Sys/Calero Pulse Ox Last 24 Hr 98.2 F-98.7 F 61-73 20-20 144-159/54-71 93 GENERAL: The patient is awake, alert, in no acute distress. HEAD: Normal with no signs of trauma. EYES: PERRL, extraocular movements intact, sclera anicteric, conjunctiva clear. No ptosis. ENT: Ears normal, nares patent, oropharynx clear without exudates NECK: Trachea midline, full range of motion, supple. LUNGS: Breath sounds equal, mild congestion on left upper lobe, tolerating 4 liters NC HEART: Regular rate and rhythm. ABDOMEN: Soft, nontender, nondistended, normoactive bowel sounds EXTREMITIES: left lower ext with non pitting edema, right lower ext non pitting edema. left > right NEUROLOGICAL: Normal speech, gait not observed. PSYCH: Normal mood, normal affect. SKIN: Warm, dry, normal turgor, no rashes or lesions noted Laboratory Results - last 24 hr 11/19/17 11/20/17 11/20/17 21:52 05:46 06:00 WBC 7.9 RBC 3.42 L Hgb 10.1 L Hct 30.3 L MCV 88.5 MCH 29.6 MCHC 33.5 RDW 15.4 Plt Count 210 MPV 8.1 Absolute Neuts (auto) 5.2 Neutrophils % 65.7 Lymphocytes % 20.9 Monocytes % 9.9 Eosinophils % 2.9 Basophils % 0.6 Nucleated RBC % 0 Sodium Potassium Chloride Carbon Dioxide Anion Gap BUN Creatinine Creat Clearance w eGFR POC Glucometer 233 234 Random Glucose Calcium Total Bilirubin AST ALT Alkaline Phosphatase Total Protein Albumin 11/20/17 11/20/17 06:00 11:32 WBC RBC Hgb Hct MCV MCH MCHC RDW Plt Count MPV Absolute Neuts (auto) Neutrophils % Lymphocytes % Monocytes % Eosinophils % Basophils % Nucleated RBC % Sodium 138 Potassium 4.2 Chloride 102 Carbon Dioxide 29 Anion Gap 7 L BUN 33 H Creatinine 0.8 Creat Clearance w eGFR > 60 POC Glucometer 374 Random Glucose 215 H Calcium 7.7 L Total Bilirubin 0.3 AST 11 L ALT 12 Alkaline Phosphatase 96 Total Protein 5.9 L Albumin 2.7 L Active Medications Generic Name Dose Route Start Last Admin Trade Name Freq PRN Reason Stop Dose Admin Acetaminophen 650 mg 11/17/17 14:32 11/20/17 06:39 Tylenol - PO 650 mg Q6H PRN Administration FEVER Albuterol/Ipratropium 1 amp 11/17/17 16:00 11/20/17 15:56 Duoneb - NEB 1 amp RQID JOHAN Administration Atorvastatin Calcium 10 mg 11/17/17 22:00 11/19/17 21:53 Lipitor - PO 10 mg HS JOHAN Administration Carvedilol 50 mg 11/17/17 22:00 11/20/17 10:19 Coreg - PO 50 mg BID JOHAN Administration Clonidine 0.1 mg 11/17/17 22:00 11/20/17 10:19 Catapres - PO 0.1 mg BID JOHAN Administration Clopidogrel Bisulfate 75 mg 11/18/17 10:00 11/20/17 10:21 Plavix - PO 75 mg DAILY JOHAN Administration Enoxaparin Sodium 40 mg 11/18/17 10:00 11/20/17 10:20 Lovenox - SQ 40 mg DAILY JOHAN Administration Furosemide 80 mg 11/20/17 14:00 11/20/17 13:50 Lasix - PO 80 mg BID@0600,1400 JOHAN Administration Insulin Aspart 1 vial 11/17/17 16:30 11/20/17 17:13 Novolog Vial Sliding Scale - SQ 10 units ACHS JOHAN Administration Protocol Insulin Detemir 10 units 11/17/17 22:00 11/19/17 21:56 Levemir Vial SQ 10 units HS JOHAN Administration Methimazole 10 mg 11/17/17 22:00 11/20/17 10:21 Tapazole - PO 10 mg BID JOHAN Administration Nicotine 21 mg 11/17/17 19:30 11/20/17 10:20 Nicoderm Patch - TD 21 mg DAILY JOHAN Administration Bghju-8-Nyjd Ethyl Esters 2 gm 11/18/17 22:00 11/20/17 10:20 Lovaza - PO 2 gm BID JOHAN Administration Perphenazine 8 mg 11/17/17 22:00 11/19/17 21:55 Trilafon PO 8 mg HS JOHAN Administration Ramipril 10 mg 11/17/17 22:00 11/20/17 10:18 Altace - PO Not Given BID [facility] ASSESSMENT/PLAN: Patient is a 67 year old female with a significant past medical history of hypertension, CHF, CAD s/p VT with stents, hyperlipidemia, diabetes mellitus with retinopathy and neuropathy, falls and psyche history of schizophrenia. The patient is from [facility] assisted and EMS was called by facility when patient was noted to be in extreme respiratory distress. She was intubated in the field and brought to the ED. No history of intubations in the past. Pulm: Acute on chronic respiratory failure/COPD exacerbation: Patient is a long time current every day smoker of 1.5 pack per day. No history of intubation in the past, not home oxygen dependent. On admission was found to have acute hypoxia secondary to COPD exacerbation and CHF. Intubated on admission, extubated on 11/16/17. Now on 2 liters of nasal cannula, and tolerating episodes of room air. Monitor airway, wean off oxygen as tolerated. Duonebs for shortness of breath/ wheezing. ID: Urinary tract infection: multiple allergies to antibiotics, started on macrodantin Card: Acute on Chronic Diastolic Heart Failure: On Lasix 40mg bid and has been diuresed 113kg>105kg. Echo shows LV normal, ef 60%, rv normal, mild mr. Monitor renal function. Hypertension: improving. Will monitor and uptitrate meds prn. on clonidine, coreq. altace bid, cardiology following. CAD s/p VT with stents: on Coreq, Plavix HLD: on Lipitor Endocrine: Diabetes: on Novolog SS, started on levemir for elevated bgms. Psyche: Smoker: cessation discussed schizophrenia hx: on trilafon @ hs fen tolerating PO monitor electrolytes monitor nutrition prophylaxis ambulating with PT SCDs Visit type - Emergency Visit Emergency Visit: Yes ED Registration Date: 11/15/17 Care time: The patient presented to the Emergency Department on the above date and was hospitalized for further evaluation of their emergent condition. - New Patient This patient is new to me today: No - Critical Care Critical Care patient: No - Discharge Referral Referred to [facility] Med P.C.: No
[2017-11-20] MEDS ORDERED: INSULIN SLIDING SCALE (NOVOLOG) 1 VIAL SQ SCH (17:33)
[2017-11-20] MEDS ORDERED: INSULIN (LEVEMIR) 100 UNITS/ML UNITS SQ SCH (22:00)
[2017-11-20] MEDS: PERPHENAZINE 4 MG TABLET PO SCH (22:11)
[2017-11-20] MEDS: ATORVASTATIN CA 10 MG TABLET (FP) PO SCH (22:11)
[2017-11-21] MEDS: ACETAMINOPHEN 325 MG TABLET (FP) PO PRN ×2 (00:52→09:21)
[2017-11-21] MEDS ORDERED: PT OWN MED DRAWER 7, Y5N ONE ×2 (05:56→09:15)
[2017-11-21] MEDS ORDERED: FUROSEMIDE 40 MG TABLET (FP) PO SCH ×2 (06:00→14:00)
[2017-11-21] MEDS: INSULIN SLIDING SCALE (NOVOLOG) 1 VIAL SQ SCH ×3 (06:50→16:54)
[2017-11-21] MEDS: ALBUTEROL SO4 2.5/IPRATROPIUM 0.5 INH SOL 3 ML VIAL.NEB. NEB SCH ×3 (07:20→15:32)
[2017-11-21] MEDS ORDERED: INSULIN (LEVEMIR) 100 UNITS/ML UNITS SQ SCH (07:52)
[2017-11-21] MEDS: RAMIPRIL 5 MG CAPSULE (FP) PO SCH (09:09)
[2017-11-21] MEDS: NICOTINE 21 MG/24 HOURS TOPICAL PATCH TD SCH (09:20)
[2017-11-21] MEDS: CLOPIDOGREL BISULFATE 75 MG TABLET (FP) PO SCH (09:21)
[2017-11-21] MEDS: METHIMAZOLE 10 MG TABLET (FP) PO SCH (09:21)
[2017-11-21] MEDS: OMEGA-3 ACID ETHYL ESTERS (FATTY-ACIDS) 1 GM CAPSULE (FP) PO SCH (09:21)
[2017-11-21] MEDS: CARVEDILOL 25 MG TABLET (FP) PO SCH (09:21)
[2017-11-21] MEDS: cloNIDine HCL 0.1 MG TABLET PO SCH (09:21)
[2017-11-21] MEDS: ENOXAPARIN NA (PORCINE) 40 MG/0.4 ML DISP.SYRIN SQ SCH (09:22)
[2017-11-21 09:28] LABS: BASO % 0.6 % (0-2.0); EOS % 3.6 % (0-4.5); HEMATOCRIT 29.2 % (32.4-45.2); HEMOGLOBIN 9.8 GM/dL (10.7-15.3); LYMPH % 22.3 % (8-40); MCH 29.5 pg (25.7-33.7); MCHC 33.6 g/dl (32.0-36.0); MEAN PLT VOLUME 8.1 fl (7.5-11.1); MONO % 11.2 % (3.8-10.2); NEUT % 62.3 % (42.8-82.8); PLATELET COUNT 206 K/MM3 (134-434); RBC 3.32 M/mm3 (3.60-5.2); RDW 15.2 % (11.6-15.6); WHITE BLOOD COUNT 7.1 K/mm3 (4.0-10.0)
[2017-11-21 10:05] LABS: CHLORIDE 103 mmol/L (98-107); POTASSIUM 4.3 mmol/L (3.5-5.1); SODIUM 138 mmol/L (136-145)
[2017-11-21 10:15] LABS: ALBUMIN 2.6 g/dl (3.4-5.0); ALK PHOS 105 U/L (45-117); ANION GAP 8 (8-16); BILIRUBIN,TOTAL 0.2 mg/dL (0.2-1.0); BLOOD UREA NITROGEN 43 mg/dL (7-18); CALCIUM 7.9 mg/dL (8.5-10.1); CO2 27 mmol/L (21-32); CREATININE 0.9 mg/dL (0.55-1.02); GLUCOSE,RANDOM 287 mg/dL (74-106); SGOT/AST 14 U/L (15-37); SGPT/ALT 12 U/L (12-78); TOT PROT 5.7 g/dl (6.4-8.2)
[2017-11-21] MEDS ORDERED: INSULIN (NOVOLOG) ASPART 100 UNITS/ML 10ML VIAL ONE (11:17)
--- NOTE | 2017-11-21 12:20 | DS ---
Physical Exam: SUBJECTIVE: Patient seen and examined OBJECTIVE: Vital Signs Period Temp Pulse Resp BP Sys/Calero Pulse Ox Last 24 Hr 98.1 F-98.7 F 60-92 20-20 144-156/66-80 93-95 PHYSICAL EXAM GENERAL: The patient is awake, alert, in no acute distress. HEAD: Normal with no signs of trauma. EYES: PERRL, extraocular movements intact, sclera anicteric, conjunctiva clear. No ptosis. ENT: Ears normal, nares patent, oropharynx clear without exudates NECK: Trachea midline, full range of motion, supple. LUNGS: Breath sounds equal, mild congestion on left upper lobe, tolerating 4 liters NC HEART: Regular rate and rhythm. ABDOMEN: Soft, nontender, nondistended, normoactive bowel sounds EXTREMITIES: left lower ext with non pitting edema, right lower ext non pitting edema. left > right NEUROLOGICAL: Normal speech, gait not observed. PSYCH: Normal mood, normal affect. SKIN: Warm, dry, normal turgor, no rashes or lesions noted LABS Laboratory Results - last 24 hr 11/20/17 11/20/17 11/21/17 17:10 22:10 05:40 WBC RBC Hgb Hct MCV MCH MCHC RDW Plt Count MPV Absolute Neuts (auto) Neutrophils % Lymphocytes % Monocytes % Eosinophils % Basophils % Nucleated RBC % Sodium Potassium Chloride Carbon Dioxide Anion Gap BUN Creatinine Creat Clearance w eGFR POC Glucometer 351 290 258 Random Glucose Calcium Total Bilirubin AST ALT Alkaline Phosphatase Total Protein Albumin 11/21/17 11/21/17 11/21/17 09:10 09:10 11:14 WBC 7.1 RBC 3.32 L Hgb 9.8 L Hct 29.2 L MCV 88.0 MCH 29.5 MCHC 33.6 RDW 15.2 Plt Count 206 MPV 8.1 Absolute Neuts (auto) 4.4 Neutrophils % 62.3 Lymphocytes % 22.3 Monocytes % 11.2 H Eosinophils % 3.6 Basophils % 0.6 Nucleated RBC % 0 Sodium 138 Potassium 4.3 Chloride 103 Carbon Dioxide 27 Anion Gap 8 BUN 43 H Creatinine 0.9 Creat Clearance w eGFR > 60 POC Glucometer 329 Random Glucose 287 H Calcium 7.9 L Total Bilirubin 0.2 AST 14 L ALT 12 Alkaline Phosphatase 105 Total Protein 5.7 L Albumin 2.6 L HOSPITAL COURSE: Date of Admission:11/15/17 Date of Discharge: 11/21/17 ASSESSMENT/PLAN: Patient is a 67 year old female with a significant past medical history of hypertension, CHF, CAD s/p PR with stents, hyperlipidemia, diabetes mellitus with retinopathy and neuropathy, falls and psyche history of schizophrenia. The patient is from [facility] assisted and EMS was called by facility when patient was noted to be in extreme respiratory distress. She was intubated in the field and brought to the ED. No history of intubations in the past. Pulm: Acute on chronic respiratory failure/COPD exacerbation, resolved. Patient is a long time current every day smoker of 1.5 pack per day. No history of intubation in the past, not home oxygen dependent. On admission was found to have acute hypoxia secondary to COPD exacerbation and CHF. Intubated on admission, extubated on 11/16/17. Now on 2 liters of nasal cannula, and tolerating episodes of room air. Monitor airway, wean off oxygen as tolerated. Duonebs for shortness of breath/wheezing. ID: Urinary tract infection: multiple allergies to antibiotics, started on macrodantin, to continue until 11/24/2017, then repeat urine culture outpatient Card: Acute on Chronic Diastolic Heart Failure: On Lasix bid and has been diuresed 113kg>105kg. Echo shows LV normal, ef 60%, rv normal, mild mr. Monitor renal function. Patient refusing to go to cardiac nursery laborer after recommended by insurance and financial services agent. Family aware. Hypertension: improving. on clonidine, coreq. altace bid, cardiology followup outpatient CAD s/p PR with stents: on Coreq, Plavix HLD: on Lipitor Endocrine: Diabetes: on Novolog SS, increased levemir for elevated bgms. Psyche: Smoker: cessation discussed schizophrenia hx: on trilafon @ hs Minutes to complete discharge: 60 Discharge Summary Reason For Visit: ACUTE ON CHRONIC CHF Current Active Problems Acute respiratory failure (Acute) CHF exacerbation (Acute) COPD (chronic obstructive pulmonary disease) (Acute) Diabetes (Acute) HTN (hypertension) (Acute) Hyperlipidemia (Acute) Obesity (Acute) PVD (peripheral vascular disease) (Acute) Schizophrenia (Acute) Condition: Improved - Instructions Diet, Activity, Other Instructions: Mrs Brown: You were admitted to [facility] on 11/15/2017 for respiratory distress due to acute on chronic CHF. Please continue to follow our recommendations as follows: Respiratory failure You were intubated and slowly weaned off oxygen. It is very important that you no longer smoke. Smoking can cause you to have a relapse of your symptoms. Continue to wear oxygen at 2-4 liters as needed for shortness of breath. Continue Lasix 80mg in the mornings and Lasix 40mg in the afternoons. Please have the facility weigh you to assure that you are not retaining water. It is important that you follow up with Dr. Patel (cardiology) for further cardiac testing. continue the Duonebs for wheezing/shortness of breath. Urinary tract infection: continue the Macrodantin as ordered every 6 hours until 11/24/2017. Have your urine studies repeated. Hypertension: Continue clonidine, coreq. altace, Coreq, Plavix. Continue Lipitor for high cholesterol. Endocrine: Diabetes: Continue the insulin and Levemir at night. It is important that you follow a diabetic diet. Constipation: You were given dulcolax orally, Colace and Miralax. Please continue taking these until you are able to have a bowel movement. Referrals: William Du MD [Primary Care Provider] - Disposition: [facility]ILITY - Home Medications Comprehensive Discharge Medication List: Ambulatory Orders Bismuth Subsalicylate [Pepto-Bismol -] 524 mg PO DAILY PRN 11/15/17 Bismuth Subsalicylate [Meacham Bismuth] 15 ml PO DAILY PRN 11/15/17 Calcium Carbonate/Vitamin D3 [Calcium 600 + Vit D 200 Tablet] 1 each PO BID 10/26 Carvedilol [Coreg -] 50 mg PO BID 11/15/17 Clonidine HCl [Catapres] 0.1 mg PO BID 11/15/17 Clopidogrel Bisulfate [Plavix] 75 mg PO DAILY 11/15/17 Diphenoxylate HCl/Atropine [Lomotil Tablet] 1 each PO DAILY 11/15/17 Famotidine [Pepcid -] 20 mg PO DAILY 11/15/17 Furosemide [Lasix -] 40 mg PO BID 11/15/17 Glimepiride 4 mg PO BID 11/15/17 Metformin HCl [Metformin HCl ER] 1,000 mg PO BID 11/15/17 Methimazole [Tapazole -] 10 mg PO BID 11/15/17 Perphenazine [Trilafon] 8 mg PO HS 11/15/17 Petrolatum,White [Aquaphor] 85 gm TP DAILY 11/15/17 Simethicone [Anti-Gas] 180 mg PO TID PRN 11/15/17 Simvastatin [Zocor -] 10 mg PO DAILY 11/15/17 Sitagliptin Phos/Metformin HCl [Janumet Xr 100-1,000 mg Tablet] 1 tab PO DAILY 11/15/17 Zolpidem Tartrate [Ambien] 10 mg PO HS 11/15/17 This patient is new to me today: No Emergency Visit: Yes ED Registration Date: 11/15/17 Care time: The patient presented to the Emergency Department on the above date and was hospitalized for further evaluation of their emergent condition. Critical Care patient: No - Discharge Referral Referred to [facility] Med P.C.: No
[2017-11-21] MEDS ORDERED: POLYETHYLENE GLYCOL 3350 119 GM BTL PO ONE (12:32)
[2017-11-21] MEDS ORDERED: DOCUSATE SODIUM 100 MG CAPSULE (FP) PO ONE (12:32)
[2017-11-21] MEDS ORDERED: BISACODYL 5 MG TABLET.DR (FP) PO ONE (12:33)
[2017-11-21] MEDS ORDERED: BISACODYL 10 MG SUPP.RECT PR PRN (12:35)
[2017-11-21 15:45] VITALS: BP 153/75; PULSE 59; TEMP 98.4
[2017-11-21] MEDS ORDERED: DOCUSATE SODIUM 100 MG CAPSULE (FP) PO SCH (22:00)
[2017-11-21] MEDS ORDERED: POLYETHYLENE GLYCOL 3350 119 GM BTL PO SCH (22:00)
== END 2017-11-21 17:56 | DRG 208 ==
LOC: JER 05:47 → JERBED 07:26 → JICU 08:22 → J6S 11-17 14:10
PROVIDERS: ADMIT Hospitalist; ATTEND Nurse Practitioner Family
PROC: 5A1935Z Respiratory Ventilation, Less than 24 Consecutive Hours (ICD-10-PCS; principal; 2017-11-15)
DX: J96.01 Acute respiratory failure with hypoxia (principal); I50.33 Acute on chronic diastolic (congestive) heart failure; J44.1 Chronic obstructive pulmonary disease with (acute) exacerbation; N39.0 Urinary tract infection, site not specified; J98.11 Atelectasis; E87.2 Acidosis; E11.51 Type 2 diabetes mellitus with diabetic peripheral angiopathy without gangrene; J96.02 Acute respiratory failure with hypercapnia; I11.0 Hypertensive heart disease with heart failure; F17.210 Nicotine dependence, cigarettes, uncomplicated; I25.10 Atherosclerotic heart disease of native coronary artery without angina pectoris; E78.5 Hyperlipidemia, unspecified; I25.2 Old myocardial infarction; E66.8 Other obesity; Z68.37 Body mass index [BMI] 37.0-37.9, adult; E05.90 Thyrotoxicosis, unspecified without thyrotoxic crisis or storm; E11.319 Type 2 diabetes mellitus with unspecified diabetic retinopathy without macular edema; E11.40 Type 2 diabetes mellitus with diabetic neuropathy, unspecified; F20.9 Schizophrenia, unspecified; R29.6 Repeated falls; Z95.5 Presence of coronary angioplasty implant and graft; Z87.891 Personal history of nicotine dependence; Z88.0 Allergy status to penicillin; Z99.81 Dependence on supplemental oxygen
CPT/HCPCS: 36415; 36600; 70450-TC; 71045-TC-FY; 80053; 80061; 81003; 81015; 82375; 82550; 82803; 82962; 83036; 83050; 83605; 83721; 83735; 83880; 84100; 84443; 84484; 85025; 85027; 85610; 85730; 87086; 87186; 93005; 93010; 93306-TC; 93970-TC; 94002; 94010; 94640; 97116-GP; 97162-GP; 99285-25; J0735; J7620

== ENCOUNTER 2018-01-14 02:45 | Inpatient (IN) | payer OTHER ==
[2018-01-14] MEDS ORDERED: ALBUTEROL SO4 2.5/IPRATROPIUM 0.5 INH SOL 3 ML VIAL.NEB. NEB ONE (02:49)
[2018-01-14] MEDS ORDERED: methylPREDNISolone NA SUCC 125 MG/2 ML VIAL ONE (03:02)
[2018-01-14] MEDS ORDERED: FUROSEMIDE 40 MG/4 ML INJECTABLE VIAL IVPUSH ONE ×3 (03:02→05:58)
[2018-01-14] MEDS ORDERED: methylPREDNISolone NA SUCC 125 MG/2 ML VIAL IVPB ONE (03:02)
[2018-01-14] MEDS ORDERED: FUROSEMIDE 40 MG/4 ML INJECTABLE VIAL ONE ×2 (03:03→03:12)
[2018-01-14 03:11] LABS: BASO % 0.7 % (0-2.0); EOS % 1.7 % (0-4.5); HEMOGLOBIN 10.5 GM/dL (10.7-15.3); LYMPH % 19.5 % (8-40); MCH 28.6 pg (25.7-33.7); MCHC 31.7 g/dl (32.0-36.0); MEAN CELL VOLUME 90.3 fl (80-96); MEAN PLT VOLUME 8.8 fl (7.5-11.1); MONO % 8.8 % (3.8-10.2); NEUT % 69.3 % (42.8-82.8); PLATELET COUNT 273 K/MM3 (134-434); RBC 3.65 M/mm3 (3.60-5.2); RDW 16.1 % (11.6-15.6); VENOUS PO2 54.4 mmHg (28-48); WHITE BLOOD COUNT 13.9 K/mm3 (4.0-10.0)
[2018-01-14] MEDS ORDERED: NITROGLYCERIN 2% OINTMENT - 1GM PACKET TD ONE ×2 (03:11→03:13)
[2018-01-14 03:13] LABS: VENOUS PC02 83.1 mmHg (38-52); VENOUS PH 7.05 (7.32-7.42)
[2018-01-14] MEDS ORDERED: morphine CARPU-JECT 2 MG/1 ML DISP.SYRIN IVPUSH ONE (03:13)
[2018-01-14] MEDS ORDERED: MORPHINE SULFATE 2 MG/ML VIAL ONE (03:16)
[2018-01-14 03:22] LABS: INR 0.94 (0.83-1.09); PROTHROMBIN TIME (PATIENT) 11.1 SEC (9.7-13.0)
[2018-01-14 03:31] LABS: ACTIVATED PTT 36.3 SECONDS (25.2-36.5)
--- NOTE | 2018-01-14 03:37 | PDOC ---
History of Present Illness - General Chief Complaint: Respiratory Distress Stated Complaint: SEVERE DIFFICULTY BREATHING Time Seen by Provider: 01/14/18 03:02 Past History - Travel Traveled outside of the country in the last 30 days: No Close contact w/someone who was outside of country & ill: No - Past Medical History Allergies/Adverse Reactions: Allergies Allergy/AdvReac Type Severity Reaction Status Date / Time ciprofloxacin [From Cipro] Allergy Verified 01/14/18 03:05 erythromycin base Allergy Verified 01/14/18 03:05 Penicillins Allergy Verified 01/14/18 03:05 shellfish derived Allergy Verified 01/14/18 03:05 Anemia: No Asthma: No Cancer: No Cardiac Disorders: Yes CVA: No COPD: Yes CHF: Yes Dementia: No Diabetes: Yes (Type 2) GI Disorders: No Disorders: No HTN: Yes Hypercholesterolemia: Yes Liver Disease: No Psychiatric Problems: Yes (Schizophrenia) Seizures: No Thyroid Disease: Yes (Thyrotoxicosis) - Surgical History Abdominal Surgery: No Appendectomy: No Cardiac Surgery: No Cholecystectomy: No Lung Surgery: No Neurologic Surgery: No Orthopedic Surgery: No - Suicide/Smoking/Psychosocial Hx Smoking History: Unknown if ever smoked Have you smoked in the past 12 months: No Information on smoking cessation initiated: No Hx Alcohol Use: No Drug/Substance Use Hx: No Substance Use Type: None Hx Substance Use Treatment: No Review of Systems - Review of Systems Able to Perform ROS?: No (Pt cannot breathe) Comments:: 01/14/18 03:33 Pt cannot breathe. She is in extremis on the ambulance. SHe is DNR and DNI 01/14/18 03:34 Placed on )2 NRB at 15% in the ER; slowly improving. Followed by BiPAP. *Physical Exam - Vital Signs Last Vital Signs Temp Pulse Resp BP Pulse Ox 96.0 F L 95 H 38 H 183/79 H 98 01/14/18 02:46 01/14/18 02:46 01/14/18 02:46 01/14/18 02:46 01/14/18 02:50 - Physical Exam General Appearance: Yes: Severe Distress HEENT: positive: EOMI, JULIO CÉSAR, Normal ENT Inspection, Normal Voice Neck: positive: Trachea midline Respiratory/Chest: positive: Labored Respiration, Rapid RR, Decreased Breath Sounds, Rales Cardiovascular: positive: Regular Rhythm, Regular Rate, S1, S2 Vascular Pulses: Femoral (R): 2+, Femoral (L): 2+, Carotid (R): 2+, Carotid (L) : 2+, Dorsalis-Pedis (R): 2+, Doralis-Pedis (L): 2+ Gastrointestinal/Abdominal: positive: Normal Bowel Sounds, Soft, Other (obese abd) Musculoskeletal: positive: Normal Inspection Integumentary: positive: Normal Color, Dry, Warm Neurologic: positive: Respond to painful stimul, Depressed Affect ED Treatment Course - LABORATORY CBC & Chemistry Diagram: 01/14/18 03:00 01/14/18 03:00 - ADDITIONAL ORDERS Additional order review: Laboratory Results 01/14/18 01/14/18 03:00 03:00 PT with INR 11.10 INR 0.94 PTT (Actin FS) 36.3 VBG pH 7.05 L* POC VBG pCO2 83.1 H* POC VBG pO2 54.4 H D Mixed VBG HCO3 21.8 01/14/18 03:00 RBC 3.65 MCV 90.3 MCHC 31.7 L RDW 16.1 H MPV 8.8 Neutrophils % 69.3 Lymphocytes % 19.5 Monocytes % 8.8 Eosinophils % 1.7 Basophils % 0.7 - Medications Given in the ED: ED Medications Discontinued Medications Generic Name Dose Route Start Last Admin Trade Name Jeff PRN Reason Stop Dose Admin Furosemide 40 mg 01/14/18 03:02 01/14/18 03:26 Lasix Injection - IVPUSH 01/14/18 03:03 40 mg ONCE ONE Administration Methylprednisolone Sodium Succinate 125 mg 01/14/18 03:02 01/14/18 03:02 Solu-Medrol - IVPB 01/14/18 03:03 125 mg ONCE ONE Administration Morphine Sulfate 2 mg 01/14/18 03:13 01/14/18 03:05 Morphine Injection - IVPUSH 01/14/18 03:14 2 mg ONCE ONE Administration Nitroglycerin 1 inch 01/14/18 03:13 01/14/18 03:27 Nitro-Bid 2% Paste - TD 01/14/18 03:14 1 inch ONCE ONE Administration *DC/Admit/Observation/Transfer Diagnosis at time of Disposition: CHF exacerbation, HTN (hypertension), Obesity, Acute respiratory failure - Discharge Dispostion Condition at time of disposition: Guarded Decision to Admit order: Yes - Referrals Referrals: William Du MD [Primary Care Provider] - - Patient Instructions - Post Discharge Activity
[2018-01-14 03:56] LABS: ALBUMIN 2.9 g/dl (3.4-5.0); ALK PHOS 210 U/L (45-117); ANION GAP 8 MMOL/L (8-16); BILIRUBIN,TOTAL 0.2 mg/dL (0.2-1); BLOOD UREA NITROGEN 42 mg/dL (7-18); CALCIUM 8.4 mg/dL (8.5-10.1); CHLORIDE 109 mmol/L (98-107); CO2 22 mmol/L (21-32); CREATININE 1.2 mg/dL (0.55-1.3); POTASSIUM 4.8 mmol/L (3.5-5.1); SGOT/AST 32 U/L (15-37); SGPT/ALT 25 U/L (13-61); SODIUM 140 mmol/L (136-145); TOT PROT 6.8 g/dl (6.4-8.2)
[2018-01-14 03:57] LABS: GLUCOSE,RANDOM 329 mg/dL (74-106)
[2018-01-14] MEDS ORDERED: NITROGLYCERIN 25MG/D5W 250ML 25 MG/250 ML ML IVPB SCH (04:00)
[2018-01-14 04:15] LABS: URINE APPEARANCE SLCLOUDY; URINE BILIRUBIN NEGATIVE (<2.0 mg/dL); URINE COLOR LTYELLOW; URINE GLUCOSE (UA) 2+ (NEGATIVE); URINE KETONE NEGATIVE (NEGATIVE); URINE LEUK ESTERASE NEGATIVE (NEGATIVE); URINE NITRITE NEGATIVE (NEGATIVE); URINE PROTEIN 3+ (NEGATIVE); URINE UROBILINOGEN NEGATIVE mg/dL (0.2-1.0)
[2018-01-14] MEDS ORDERED: NITROGLYCERIN 25MG/D5W 250ML 25 MG/250 ML ML IVPB ONE (04:44)
[2018-01-14 04:46] LABS: EPI CELLS RARE /HPF (FEW); URINE BACTERIA RARE /hpf (NONE SEEN); URINE HYALINE CAST 20-40 /lpf
--- NOTE | 2018-01-14 05:03 | PN ---
Teaching Attending Note Name of Resident: Steffen Loya ATTENDING PHYSICIAN STATEMENT I saw and evaluated the patient. I reviewed the resident's note and discussed the case with the resident. I agree with the resident's findings and plan as documented. SUBJECTIVE: Patient is a 67 year old woman with a PMH significant for HTN, HLD, CAD s/p VA s /p stents, CHF, COPD, hyperthyroidism, NIDDM with retinopathy and neuropathy, frequent falls, and schizophrenia brought in by EMS in severe respiratory distress. She has DNR/DNI instructions and was placed on BIPAP instead of intubation. She was unable to provide any information due to her severe respiratory distress. OBJECTIVE: Somnolent but arousable and in respiratory distress Vital Signs Period Temp Pulse Resp BP Sys/Calero Pulse Ox Last 24 Hr 96.0 F 83-95 18-38 145-183/53-79 83-100 HEENT: No Jaundice, eye redness or discharge, PERRLA, Normocephalic, atraumatic. External ears are normal; No nasal discharge. Neck: Supple, nontender. No palpable adenopathy or thyromegaly. No JVD Chest: Bibasilar crackles. Using accessory muscles. Clear to percussion. Heart: Regular. No S3, rub or murmur Abdomen: Not distended, soft, nontender and no HSM. No rebound or guarding. Normoactive bowel sounds. Ext: Peripheral pulses intact. Leg edema. Skin: Warm and dry. No petechiae, rash or ecchymosis. Neuro: Somnolent but arousable. Oriented to person and place. CN 2-12 grossly intact. Sensation grossly intact in all four extremities and DTR are symmetric. Home Medications Medication Instructions Recorded Calcium Carbonate/Vitamin D3 1 each PO BID 11/15/17 [Calcium 600-Vit D3 200 Tablet] Carvedilol [Coreg -] 50 mg PO BID 11/15/17 Clonidine HCl [Catapres] 0.1 mg PO BID 11/15/17 Clopidogrel Bisulfate [Plavix] 75 mg PO DAILY 11/15/17 Methimazole [Tapazole -] 10 mg PO BID 11/15/17 Perphenazine [TRILAFON -] 8 mg PO HS 11/15/17 Petrolatum,White [Aquaphor] 85 gm TP DAILY 11/15/17 Simvastatin [Zocor -] 10 mg PO DAILY 11/15/17 Sitagliptin Phos/Metformin HCl 1 tab PO DAILY 11/15/17 [Janumet Xr 100-1,000 mg Tablet] Acetaminophen [Tylenol .Regular 650 mg PO Q6H PRN tablet 11/21/17 Strength -] Albuterol 2.5/Ipratropium 0.5 1 amp NEB RQID amp 11/21/17 [Duoneb -] Bisacodyl Suppository [Dulcolax 10 mg ME PRN PRN supp.rect 11/21/17 Suppository -] Docusate Sodium [Colace -] 100 mg PO TID capsule 11/21/17 Enoxaparin [Lovenox -] 40 mg SQ DAILY disp.syrin 11/21/17 Furosemide [Lasix -] 40 mg PO 1400 tablet 11/21/17 Furosemide [Lasix -] 80 mg PO 0600 tablet 11/21/17 Insulin (Levemir) [Levemir Vial] 20 units SQ HS units 11/21/17 Insulin Sliding Scale [Novolog 1 vial SQ ACHS units 11/21/17 Vial Sliding Scale -] Nicotine Patch [Nicoderm Patch -] 21 mg TD DAILY patch 11/21/17 Nitrofurantoin Macrocrystal 50 mg PO Q6HPO capsule 11/21/17 [Macrodantin -] Doswell-3 Acid Ethyl Esters [Lovaza 2 gm PO BID cap 11/21/17 -] Polyethylene Glycol 3350 [Miralax 17 gm PO BID bottle 11/21/17 119 gm Btl -] Ramipril [Altace] 10 mg PO BID capsule 11/21/17 Abnormal Lab Results 01/14/18 01/14/18 01/14/18 03:00 03:00 03:00 WBC 13.9 H Hgb 10.5 L MCHC 31.7 L RDW 16.1 H Absolute Neuts (auto) 9.6 H VBG pH 7.05 L* POC VBG pCO2 83.1 H* POC VBG pO2 54.4 H D Chloride 109 H BUN 42 H Random Glucose 329 H* Lactic Acid Calcium 8.4 L Alkaline Phosphatase 210 H Albumin 2.9 L Ur Specific [place] Urine Protein Urine Glucose (UA) Urine Blood 01/14/18 01/14/18 03:00 03:58 WBC Hgb MCHC RDW Absolute Neuts (auto) VBG pH POC VBG pCO2 POC VBG pO2 Chloride BUN Random Glucose Lactic Acid 2.5 H* Calcium Alkaline Phosphatase Albumin Ur Specific [place] 1.009 L Urine Protein 3+ H Urine Glucose (UA) 2+ H Urine Blood 1+ H ASSESSMENT AND PLAN: 1. Acute hypercarbic and hypoxic respiratory failure - The immediate precipitating factor for respiratory failure is unclear. Had ?diastolic dysfunction and normal LVEF on most recent ECHO. CXR is poor quality, rotated and shows pulmonary congestion with possible bibasilar infiltrates. No new changes on EKG. Will give 80 mg of IV lasix and monitor urine output; continue BIPAP and rule out ACS in the ICU; send urine for legionella antigen and treat with IV Doxycycline for atypical pneumonia. Sepsis workup done. Trend lactic acid and consult ID. 2. Hypoalbuminemia - May be exacerbating peripheral edema. Possibly caused by combined effects of proteinuria, malnutrition and inflammation associated with comorbid chronic conditions. Will ensure adequate dietary protein intake and also consult insurance sales producer. 3. DM - For now, we will hold the home diabetes drugs and implement sliding scale insulin regimen. Provide comprehensive diabetes care with patient teaching and counseling about the importance of euglycemia, eye care and foot care. 4. BOB - Will consult nephrology and avoid nephrotoxic agents such as NSAIDS, aminoglycosides, contrast dyes and certain Alternative medicine products. 5. Obesity - Will provide patient all the necessary assistance, counseling and positive reinforcement to facilitate weight loss. Consult insurance sales producer. 6. DVT prophylaxis - Heparin 5000u sq tid. 7. Advance directives - DNR/DNI
--- NOTE | 2018-01-14 05:25 | CONSULT ---
Consultation: REQUESTING PROVIDER: CONSULT REQUEST: We have been asked to medically evaluate this patient for acute hypoxic/hypercapnic respiratory failure. HISTORY OF PRESENT ILLNESS: Patient is a 67 y/o F w/ PMHx HTN, HLD, CAD s/p RI s/p stents, CHF, COPD, hyperthyroidism, NIDDM with retinopathy and neuropathy, frequent falls, and schizophrenia brought in by EMS in severe respiratory distress. Reportedly had O2 saturation in 50s in the field, was saturating in 70s initially in the ED with BP 189/90. Has DNR/DNI code status and for that reason was placed on BiPAP rather than intubated. Chest xray shows bilateral densities suspicious for pulmonary edema vs. infiltrates. Received 80mg Lasix, 125mg solumedrol, nitro paste in the ED. Nitro drip was considered but deferred as BP resolved to 140s/ 70s in the ED. ED course notable for rectal temperature 96 lactate 2.5, WBC 13.9 , VBG 7.05/83.1/54.4/21.8. Patient's health care proxy Kevon Brown was contacted and indicated he wanted all measures performed except for DNR/DNI status. REVIEW OF SYSTEMS: Patient obtunded and unable to provide ROS except as per HPI. PHYSICAL EXAMINATION Vital Signs - 24 hr 01/14/18 01/14/18 01/14/18 02:46 02:50 02:58 Temperature 96.0 F L Pulse Rate 95 H Pulse Rate [ Left Radial] Respiratory 38 H Rate Blood Pressure 183/79 H Blood Pressure [Left Arm] O2 Sat by Pulse 83 L 98 100 Oximetry (%) 01/14/18 01/14/18 01/14/18 03:07 03:34 04:51 Temperature Pulse Rate Pulse Rate [ 89 83 Left Radial] Respiratory 22 H 18 18 Rate Blood Pressure Blood Pressure 182/68 H 145/53 L [Left Arm] O2 Sat by Pulse 100 100 100 Oximetry (%) 01/14/18 04:58 Temperature 96.0 F L Pulse Rate Pulse Rate [ Left Radial] Respiratory Rate Blood Pressure Blood Pressure [Left Arm] O2 Sat by Pulse Oximetry (%) GENERAL: Lethargic, arousable, opens eyes and follows commands, can respond in one word answers. HEAD: NC/AT EYES: PERRLA, could not remain awake long enough for EOM assessment EARS, NOSE, THROAT: MMM NECK: supple without lymphadenopathy, +JVD LUNGS: Only anterior ken accessible. Wheezing and crackles throughout. Using accessory muscles and increased work of breathing. HEART: RRR, no m/r/g appreciated. Auscultation impeded by patient's body habitus and work of breathing. ABDOMEN: Soft, obese, bowel sounds could not be appreciated, no evident tenderness. UPPER EXTREMITIES: 2+ pulses, warm, well-perfused. No cyanosis. No clubbing. LOWER EXTREMITIES: 2+ pulses, warm, well-perfused. 2+ pitting edema b/l. NEUROLOGICAL: GCS 13, sensorium intact. Could not evaluate otherwise. Laboratory Results - last 24 hr 01/14/18 01/14/18 01/14/18 03:00 03:00 03:00 WBC 13.9 H RBC 3.65 Hgb 10.5 L Hct 33.0 MCV 90.3 MCH 28.6 MCHC 31.7 L RDW 16.1 H Plt Count 273 D MPV 8.8 Absolute Neuts (auto) 9.6 H Neutrophils % 69.3 Lymphocytes % 19.5 Monocytes % 8.8 Eosinophils % 1.7 Basophils % 0.7 Nucleated RBC % 0 PT with INR 11.10 INR 0.94 PTT (Actin FS) 36.3 VBG pH 7.05 L* POC VBG pCO2 83.1 H* POC VBG pO2 54.4 H D Mixed VBG HCO3 21.8 Sodium Potassium Chloride Carbon Dioxide Anion Gap BUN Creatinine Creat Clearance w eGFR Random Glucose Lactic Acid Calcium Total Bilirubin AST ALT Alkaline Phosphatase Troponin I Total Protein Albumin Urine Color Urine Appearance Urine pH Ur Specific [place] Urine Protein Urine Glucose (UA) Urine Ketones Urine Blood Urine Nitrite Urine Bilirubin Urine Urobilinogen Ur Leukocyte Esterase Urine WBC (Auto) Urine RBC (Auto) Ur Epithelial Cells Urine Bacteria Hyaline Casts 01/14/18 01/14/18 01/14/18 03:00 03:00 03:00 WBC RBC Hgb Hct MCV MCH MCHC RDW Plt Count MPV Absolute Neuts (auto) Neutrophils % Lymphocytes % Monocytes % Eosinophils % Basophils % Nucleated RBC % PT with INR INR PTT (Actin FS) VBG pH POC VBG pCO2 POC VBG pO2 Mixed VBG HCO3 Sodium 140 Potassium 4.8 Chloride 109 H Carbon Dioxide 22 Anion Gap 8 BUN 42 H Creatinine 1.2 Creat Clearance w eGFR 44.68 Random Glucose 329 H* Lactic Acid 2.5 H* Calcium 8.4 L Total Bilirubin 0.2 AST 32 ALT 25 Alkaline Phosphatase 210 H Troponin I < 0.02 Total Protein 6.8 Albumin 2.9 L Urine Color Urine Appearance Urine pH Ur Specific [place] Urine Protein Urine Glucose (UA) Urine Ketones Urine Blood Urine Nitrite Urine Bilirubin Urine Urobilinogen Ur Leukocyte Esterase Urine WBC (Auto) Urine RBC (Auto) Ur Epithelial Cells Urine Bacteria Hyaline Casts 01/14/18 03:58 WBC RBC Hgb Hct MCV MCH MCHC RDW Plt Count MPV Absolute Neuts (auto) Neutrophils % Lymphocytes % Monocytes % Eosinophils % Basophils % Nucleated RBC % PT with INR INR PTT (Actin FS) VBG pH POC VBG pCO2 POC VBG pO2 Mixed VBG HCO3 Sodium Potassium Chloride Carbon Dioxide Anion Gap BUN Creatinine Creat Clearance w eGFR Random Glucose Lactic Acid Calcium Total Bilirubin AST ALT Alkaline Phosphatase Troponin I Total Protein Albumin Urine Color Ltyellow Urine Appearance Slcloudy Urine pH 5.0 Ur Specific [place] 1.009 L Urine Protein 3+ H Urine Glucose (UA) 2+ H Urine Ketones Negative Urine Blood 1+ H Urine Nitrite Negative Urine Bilirubin Negative Urine Urobilinogen Negative Ur Leukocyte Esterase Negative Urine WBC (Auto) 14 Urine RBC (Auto) 10 Ur Epithelial Cells Rare Urine Bacteria Rare Hyaline Casts 20-40 Active Medications Generic Name Dose Route Start Last Admin Trade Name Freq PRN Reason Stop Dose Admin Insulin Aspart 1 vial 01/14/18 07:00 Novolog Vial Sliding Scale - SQ ACHS [facility] Protocol ASSESSMENT/PLAN: 67 y/o F w/ PMHx HTN, HLD, CAD s/p RI s/p stents, CHF, COPD, hyperthyroidism, NIDDM with retinopathy and neuropathy, frequent falls, and schizophrenia brought in by EMS in severe respiratory distress, AMS, and hypertensive emergency. Was not intubated d/t DNI code status and placed on BiPAP. BP stabilized with nitro paste. Saturation stabilized at 100% on BiPAP. Differential diagnosis acute exacerbation of CHF/COPD vs. sepsis 2/2 PNA. Admitted to ICU for monitoring and potential need for pressors. #neurologic -AMS and lethargy 2/2 hypercapnia vs. toxic-metabolic encephalopathy -treating underlying dysfunction #cardiac -BP stabilized on nitropaste -nitro drip if hypertensive emergency relapses -received Lasix 80 -further Lasix 80 -fluids/pressors not currently indicated but will be administered if needed -BNP pending -close monitoring -CXR: b/l pulmonary edema vs infiltrates #pulmonary -in acute hypoxic/hypercapnic respiratory failure -on BiPAP -received solumedrol 125 -obtaining ABG since stabilization of O2 saturation -obtaining repeat lactate for assessment of sepsis 2/2 PNA vs. CHF/COPD-related pulmonary insult as cause of lactate elevation -DNI code status -CXR: b/l pulmonary edema vs infiltrates #ID -rectal temperature 96, unstable vitals, leukocytosis may represent septic process -vitals stabilized -BCx, UCx obtained -empiric coverage with doxycycline 100 IVPB (atypical coverage needed d/t aspiration risk) -ID consulted -obtaining repeat lactate for assessment of sepsis vs. CHF/COPD-related pulmonary insult as cause of lactate elevation #Renal -BUN/Cr 42/1.2 -avoid nephrotoxic agents -monitor #GI -no issues at this time #endocrine -DM -SSI, BGM #FEN -no IVF at this time -monitor BMP -NPO #PPx -DVT: heparin subq -GI: not indicated at this time #code -DNR/DNI #Dispo -We will continue to follow the patient in the ICU. Thank you for this consultative opportunity. Visit type - Emergency Visit Emergency Visit: Yes Care time: The patient presented to the Emergency Department on the above date and was hospitalized for further evaluation of their emergent condition. - New Patient This patient is new to me today: Yes Date on this admission: 01/14/18 - Critical Care Critical Care patient: Yes Total Critical Care Time (in minutes): 40 Critical Care Statement: The care of this patient involved high complexity decision making to prevent further life threatening deterioration of the patient 's condition and/or to evaluate & treat vital organ system(s) failure or risk of failure.
--- NOTE | 2018-01-14 07:01 | HP ---
CHIEF COMPLAINT: Hypoxemia and somnolence PCP: Dr. Du HISTORY OF PRESENT ILLNESS: 67yo F with hisotry of HTN, HLD, CAD (s/p ME and stents of unknown material) , diastolic CHF (previous echo in 11/2017), COPD, Hyperthyroidism, NIDDM, and schizophrenia who presents today from [facility] for acute hypoxia down to 52% SpO2. Pt was altered and BIBEMS who placed a NRB with saturation increasing to 80-82% SpO2. Pt was placed on BiPap upon arrival to the ER due to having a DNR/DNI form from her assisted living. Currently pt is extremely lethargic and is arousable to voice. She will follow simple commands, however will fall back asleep quickly. Pt minimally nods to yes -or-no questions and does not make any audible speech while using BiPap. History taken per chart and EMS narrative via ER staff. PAST MEDICAL HISTORY: HTN, HLD, CAD (s/p ME and stents of unknown material), diastolic CHF ( previous echo in 11/2017), COPD, Hyperthyroidism, NIDDM, and schizophrenia PAST SURGICAL HISTORY: Coronary stents (unknown date and unknown material) C-sections Social History: Smoking: Current smoker (unknown PPD history) Alcohol: None (per chart) Drugs: None (per chart) Family History: Unable to obtain Allergies ciprofloxacin [From Cipro] Allergy (Verified 01/14/18 03:05) erythromycin base Allergy (Verified 01/14/18 03:05) Penicillins Allergy (Verified 01/14/18 03:05) shellfish derived Allergy (Verified 01/14/18 03:05) HOME MEDICATIONS: Home Medications Medication Instructions Recorded Unobtainable 01/14/18 REVIEW OF SYSTEMS Unable to obtain due to lethargy PHYSICAL EXAMINATION Vital Signs - 24 hr 01/14/18 01/14/18 01/14/18 02:46 02:50 02:58 Temperature 96.0 F L Pulse Rate 95 H Pulse Rate [ Left Radial] Respiratory 38 H Rate Blood Pressure 183/79 H Blood Pressure [Left Arm] O2 Sat by Pulse 83 L 98 100 Oximetry (%) 01/14/18 01/14/18 01/14/18 03:07 03:34 04:51 Temperature Pulse Rate Pulse Rate [ 89 83 Left Radial] Respiratory 22 H 18 18 Rate Blood Pressure Blood Pressure 182/68 H 145/53 L [Left Arm] O2 Sat by Pulse 100 100 100 Oximetry (%) 01/14/18 01/14/18 04:58 06:17 Temperature 96.0 F L 97.2 F L Pulse Rate 84 Pulse Rate [ Left Radial] Respiratory 19 Rate Blood Pressure 131/77 Blood Pressure [Left Arm] O2 Sat by Pulse Oximetry (%) GENERAL: Moderate distress, very somnolent, oriented x3 when aroused by loud voice HEENT: EOMI, PAVEL, sclera anicteric, [id number] mucosa, Bilevel mask appropriately on face Neck: Soft, No JVD LUNGS: Diminished breath sounds bilaterally. Fine rales appreciated diffusely alongside of coarse breath sounds. Intercostal retractions with SCM usage while on BiLevel 14/6/14/100%. HEART: Tachycardic with regular rhythm, normal S1 and S2 without murmur ABDOMEN: Soft, obese, normoactive BS, NT/ND, no guarding, could not assess organomegaly due to body habitus MUSCULOSKELETAL: No CVA tenderness. No bony deformations EXTREMITIES: 2+ DP pulses, warm, cap refill <2sec in all four extremities. No cyanosis of nail beds or other regions noted. 2+ pitting edema around knees NEUROLOGICAL: Could not assess due to somnolence. SKIN: Warm, dry, no rashes or lesions, no skin breaks appreciated, tense skin around lower extremities Laboratory Results - last 24 hr 01/14/18 01/14/18 01/14/18 03:00 03:00 03:00 WBC 13.9 H RBC 3.65 Hgb 10.5 L Hct 33.0 MCV 90.3 MCH 28.6 MCHC 31.7 L RDW 16.1 H Plt Count 273 D MPV 8.8 Absolute Neuts (auto) 9.6 H Neutrophils % 69.3 Lymphocytes % 19.5 Monocytes % 8.8 Eosinophils % 1.7 Basophils % 0.7 Nucleated RBC % 0 PT with INR 11.10 INR 0.94 PTT (Actin FS) 36.3 VBG pH 7.05 L* POC VBG pCO2 83.1 H* POC VBG pO2 54.4 H D Mixed VBG HCO3 21.8 Sodium Potassium Chloride Carbon Dioxide Anion Gap BUN Creatinine Creat Clearance w eGFR Random Glucose Lactic Acid Calcium Total Bilirubin AST ALT Alkaline Phosphatase Troponin I Total Protein Albumin Urine Color Urine Appearance Urine pH Ur Specific [place] Urine Protein Urine Glucose (UA) Urine Ketones Urine Blood Urine Nitrite Urine Bilirubin Urine Urobilinogen Ur Leukocyte Esterase Urine WBC (Auto) Urine RBC (Auto) Ur Epithelial Cells Urine Bacteria Hyaline Casts 01/14/18 01/14/18 01/14/18 03:00 03:00 03:00 WBC RBC Hgb Hct MCV MCH MCHC RDW Plt Count MPV Absolute Neuts (auto) Neutrophils % Lymphocytes % Monocytes % Eosinophils % Basophils % Nucleated RBC % PT with INR INR PTT (Actin FS) VBG pH POC VBG pCO2 POC VBG pO2 Mixed VBG HCO3 Sodium 140 Potassium 4.8 Chloride 109 H Carbon Dioxide 22 Anion Gap 8 BUN 42 H Creatinine 1.2 Creat Clearance w eGFR 44.68 Random Glucose 329 H* Lactic Acid 2.5 H* Calcium 8.4 L Total Bilirubin 0.2 AST 32 ALT 25 Alkaline Phosphatase 210 H Troponin I < 0.02 Total Protein 6.8 Albumin 2.9 L Urine Color Urine Appearance Urine pH Ur Specific [place] Urine Protein Urine Glucose (UA) Urine Ketones Urine Blood Urine Nitrite Urine Bilirubin Urine Urobilinogen Ur Leukocyte Esterase Urine WBC (Auto) Urine RBC (Auto) Ur Epithelial Cells Urine Bacteria Hyaline Casts 01/14/18 03:58 WBC RBC Hgb Hct MCV MCH MCHC RDW Plt Count MPV Absolute Neuts (auto) Neutrophils % Lymphocytes % Monocytes % Eosinophils % Basophils % Nucleated RBC % PT with INR INR PTT (Actin FS) VBG pH POC VBG pCO2 POC VBG pO2 Mixed VBG HCO3 Sodium Potassium Chloride Carbon Dioxide Anion Gap BUN Creatinine Creat Clearance w eGFR Random Glucose Lactic Acid Calcium Total Bilirubin AST ALT Alkaline Phosphatase Troponin I Total Protein Albumin Urine Color Ltyellow Urine Appearance Slcloudy Urine pH 5.0 Ur Specific [place] 1.009 L Urine Protein 3+ H Urine Glucose (UA) 2+ H Urine Ketones Negative Urine Blood 1+ H Urine Nitrite Negative Urine Bilirubin Negative Urine Urobilinogen Negative Ur Leukocyte Esterase Negative Urine WBC (Auto) 14 Urine RBC (Auto) 10 Ur Epithelial Cells Rare Urine Bacteria Rare Hyaline Casts 20-40 ASSESSMENT/PLAN: 67yo F with multiple comorbid conditions arriving at hospital due to hypoxia and hypercapneic respiratory failure Neuro: Lethargic currently, however oriented x3 Monitor mental status Resp: Acute hypoxic, hypercapneic respiratory failure --Likely 2/2 to CHF exacerbation however given CXR, leukocytosis, and hypothermic rectal temperature cannot r/o aspiration or other sepsis --Pt is DNR/DNI, however proxy was contacted and is okay with central lines and pressors --ABG stat; VBG showing respiratory acidosis without adequate compensation --Suspect pH will improve due to continued use of BiLevel device --If <7.0 would give dose of HCO3 --Continue BiPap 23/09/15 and titrate FiO2 for SpO2 88-90% --Can increased IPAP as tolerated by patient if pt continues to become hypercapneic --If pt becomes more somnolent and hypoxemic high flow oxygen may be of benefit, but will revaluate --CXR showing increased b/l fluffy infiltrates of the hilum with ? cephalization Cardiovascular: Hypertensive urgency --Pt was given nitro paste in ER --Repeat BP was 147/52 per automated cuff --Monitor BP closely ID: Leukocytosis with hypothermia --Possible there is inciting infection causing CHF --Given patchy fluffy infiltrative processes on CXR cannot r/o aspiration or other event --Will cover with Doxycycline 100mg IVPB once for G+ and atypical coverage (pt allergic to fluoroquinolones, macrolides, and penicillins) --ID consult for recommendations Lactic acidosis --Mild --Possibly 2/2 to hypoxia, however cannot r/o infection --Repeat now: if decreasing possibly due to hypoxemia correction while on BiPap; if increasing possibly due septic event or other etiology --Trend until normalized for efficacy of treatment Hematology: Normocytic anemia --Likely anemia of chronic disease --Would recommend iron studies Renal: BOB --Likely cardiorenal syndrome --Monitor Cr --Will need higher dose of Lasix for efficacy for diuresis --Previous 40mg Lasix IVP x2 only yielded 200cc output; trial 80mg Lasix IVP and follow I&O's for adequate diuresis --Maintain fine --Avoid nephrotoxic agents and renally dose medications (Cr Clearance 44) Endocrine: NIDDM: --Will supplement with ISS --With scale will give 6U Novolog now for hyperglycemia to 329 --Monitor BGM ACHS --A1c with next lab draws FEN: Fluids: Would avoid for now and bolus as needed Electrolyte abnormalities: None currently (corrected Ca WNL) Nutrition: NPO while lethargic and BiLevel device PPX: DVT - Heparin SQ GI - Protonix 40mg qDaily GOC: Contacted proxy per chart; reaffirmed DNR/DNI status and would be okay with centra lines, pressors, and antibiotics Dispo: ICU monitoring due to ability to escalate care to pressors or other gtts if necessary and for close monitoring Case discussed with Dr. Nur and ICU resident Steffen Loya, DO - IM PGY-2 Visit type - Emergency Visit Emergency Visit: Yes ED Registration Date: 01/14/18 Care time: The patient presented to the Emergency Department on the above date and was hospitalized for further evaluation of their emergent condition. - New Patient This patient is new to me today: Yes Date on this admission: 01/14/18 - Critical Care Critical Care patient: No
[2018-01-14] MEDS: HEPARIN NA (PORCINE) 5,000 UNITS/ML 1ML VIAL SQ SCH ×3 (07:07→21:11)
[2018-01-14] MEDS ORDERED: DOXYCYCLINE INJECTION 100 MG in DEXTROSE 5%-WATER - 100 ML IVPB ONE (07:15)
--- NOTE | 2018-01-14 07:20 | HOSP ---
Subjective - Review of Symptoms Subjective: info is per son at bedside as pt is unable to converse without becoming dyspnic on bipap As per son she was in her normal state of health yesterday when he visited and then notified that she was increasingly dyspnic and brought to the hospital late last night. She had a similar episode in November where she was brought here and treated for CHF exacerbation. Improved and then sent to rehab where according to him wasnt monitored well and became confused and altered and sent to [facility] where she was found to be hypercalcemic. she was treated with IVF and a medication (name unknown). workup was done but determined to be due to her calcium supplements she was taking at the time. he is unaware if her medications have been changed other than the supplement being stopped. she was not having any complaints the past few days. ambulates with RW at baseline Current Medications Generic Name Dose Route Start Last Admin Trade Name Jeff PRN Reason Stop Dose Admin Chlorhexidine Gluconate 1 applic 01/14/18 22:00 Hibiclens For Decolonization - TP HS JOHAN Heparin Sodium (Porcine) 5,000 unit 01/14/18 06:00 01/14/18 07:07 Heparin - SQ 5,000 unit TID JOHAN Administration Doxycycline Hyclate 100 mg/ 100 mls @ 50 mls/hr 01/14/18 07:15 Dextrose IVPB 01/14/18 09:14 ONCE ONE Insulin Aspart 1 vial 01/14/18 07:00 Novolog Vial Sliding Scale - SQ ACHS [facility] Protocol Mupirocin 1 applic 01/14/18 10:00 Bactroban Ointment (For Decolonization) - NS 01/19/18 09:59 BID JOHAN Last Vital Signs Temp Pulse Resp BP Pulse Ox 97.2 F L 84 19 131/77 100 01/14/18 06:17 01/14/18 06:17 01/14/18 06:17 01/14/18 06:17 01/14/18 06:10 Intake & Output 01/11/18 01/12/18 01/13/18 01/14/18 23:59 23:59 23:59 23:59 Weight 234 lb 4 oz General tachypnic CV S1 S2 distant heart soun ds lungs diffuse wheezing. decreased breath sounds at bases Abdomen soft NT/ND obese Extremities 2+ pitting edema B/L CBCD WBC 13.9 K/mm3 (4.0-10.0) H 01/14/18 03:00 RBC 3.65 M/mm3 (3.60-5.2) 01/14/18 03:00 Hgb 10.5 GM/dL (10.7-15.3) L 01/14/18 03:00 Hct 33.0 % (32.4-45.2) 01/14/18 03:00 MCV 90.3 fl (80-96) 01/14/18 03:00 MCHC 31.7 g/dl (32.0-36.0) L 01/14/18 03:00 RDW 16.1 % (11.6-15.6) H 01/14/18 03:00 Plt Count 273 K/MM3 (134-434) D 01/14/18 03:00 MPV 8.8 fl (7.5-11.1) 01/14/18 03:00 CMP Sodium 140 mmol/L (136-145) 01/14/18 03:00 Potassium 4.8 mmol/L (3.5-5.1) 01/14/18 03:00 Chloride 109 mmol/L (98-107) H 01/14/18 03:00 Carbon Dioxide 22 mmol/L (21-32) 01/14/18 03:00 Anion Gap 8 MMOL/L (8-16) 01/14/18 03:00 BUN 42 mg/dL (7-18) H 01/14/18 03:00 Creatinine 1.2 mg/dL (0.55-1.3) 01/14/18 03:00 Creat Clearance w eGFR 44.68 (>60) 01/14/18 03:00 Calcium 8.4 mg/dL (8.5-10.1) L 01/14/18 03:00 Total Bilirubin 0.2 mg/dL (0.2-1) 01/14/18 03:00 AST 32 U/L (15-37) 01/14/18 03:00 ALT 25 U/L (13-61) 01/14/18 03:00 Alkaline Phosphatase 210 U/L (45-117) H 01/14/18 03:00 Total Protein 6.8 g/dl (6.4-8.2) 01/14/18 03:00 Albumin 2.9 g/dl (3.4-5.0) L 01/14/18 03:00 A/P 67yo F wtih PMH HTN, dyslipidemia, DM, CAD s/p stent, schizophrenia, COPD, hyperthyroid from [facility] due to acute respiratory distress 1. Acute hypercapnic hypoxic respiratory distress- likely due to acute on chronic CHF although can not r/o infiltrate. received a total of [id number] IV, medrol 125mcg and Doxy in the ER. saturating well on bipap but is noted to be tachypnic. would cont steroids at this time 40mg Q6H, hold further lasix today and can restart at lasix 40mg BID tomorrow and cont abx. multiple allergies noted however may need to broaden considering multiple hospitalizations in the past few months. will try to obtain records from [facility] to see what patient was treated with and if her heart failure treatment were held/ adjusted. check TSH. F/u Cx 2. sepsis due to suspected PNA- hypothermic on presentation. with tachypnea and leukcytosis. on doxy. not impressed with CXR, if planning to treat may need to broaden coverage considering multiple hospitalizations recently. noted multiple abx allergies 3. DNR/DNI. spoke with son. verbalized agreement and understanding of plan. reconcile medication list and re-start home medications. The care of this patient involved high complexity decision making to prevent further life threatening deterioration of the patient's condition and/or to evaluate & treat vital organ system(s) failure or risk of failure. 40 mins Physical Examination Vital Signs: Vital Signs Temperature 97.2 F L 01/14/18 06:17 Pulse Rate 84 01/14/18 06:17 Respiratory Rate 19 01/14/18 06:17 Blood Pressure 131/77 01/14/18 06:17 O2 Sat by Pulse Oximetry (%) 100 01/14/18 06:10 Labs: CBC, BMP 01/14/18 03:00 01/14/18 03:00
[2018-01-14 10:01] LABS: BASO % 0.6 % (0-2.0); EOS % 0.1 % (0-4.5); HEMATOCRIT 33.1 % (32.4-45.2); HEMOGLOBIN 10.5 GM/dL (10.7-15.3); LYMPH % 5.8 % (8-40); MCH 28.2 pg (25.7-33.7); MCHC 31.8 g/dl (32.0-36.0); MEAN CELL VOLUME 88.8 fl (80-96); MEAN PLT VOLUME 8.5 fl (7.5-11.1); MONO % 2.5 % (3.8-10.2); PLATELET COUNT 206 K/MM3 (134-434); RBC 3.73 M/mm3 (3.60-5.2); WHITE BLOOD COUNT 10.2 K/mm3 (4.0-10.0)
[2018-01-14] MEDS ORDERED: PT OWN MED DRAWER 7, Y5N ONE ×2 (10:08→21:06)
[2018-01-14] MEDS: methylPREDNISolone NA SUCC 40 MG/1 ML VIAL IVPUSH SCH ×3 (10:11→21:12)
[2018-01-14] MEDS: SENNOSIDES 8.6MG TABLET (FP) PO SCH (10:23)
[2018-01-14] MEDS: ASPIRIN 81 MG CHEWABLE TABLETS PO SCH (10:23)
[2018-01-14] MEDS: PANTOPRAZOLE 40 MG TABLET (FP) PO SCH (10:23)
[2018-01-14] MEDS: amLODIPine BESYLATE 5 MG TABLET (FP) PO SCH (10:23)
[2018-01-14] MEDS: CLOPIDOGREL BISULFATE 75 MG TABLET (FP) PO SCH (10:23)
[2018-01-14] MEDS: CARVEDILOL 25 MG TABLET (FP) PO SCH ×2 (10:23→21:12)
[2018-01-14] MEDS: MUPIROCIN 2% TOPICAL OINTMENT FOR DECOLONIZATION NS SCH ×2 (11:05→21:12)
[2018-01-14] MEDS: METHIMAZOLE 10 MG TABLET (FP) PO SCH (11:06)
[2018-01-14] MEDS: PERPHENAZINE 8 MG TABLET PO SCH (11:06)
[2018-01-14 11:33] LABS: ANISOCYTOSIS 1+; MACROCYTOSIS 0; PLATELET ESTIMATE NORMAL
--- NOTE | 2018-01-14 11:35 | CON.ID ---
Consult Consult Specialty:: infectious disease Referred by:: hospitalist service Reason for Consultation:: evaluate for pneumonia, multiple antibiotic allergies - History of Present Illness Chief Complaint: SOB History of Present Illness: 67 yo female lives in assisted living- admitted in November with pulmonary edema- was intubated, was discharged to rehab and then was hospitalized in [place] for confusion and lethargy and was found to be hypercalcemic- she was then discharged to rehab and back to her assisted living facility several weeks ago seen by her son yesterday at 4 pm- she was fine she ate dinner developed SOB around midinight and was brought to ED early am required bipap- she has no fevers or chills no nausea or vomiting no chest pain or abdominal pain no dysuria she has diuresed 2 liters and is now on nasal [place]ulla feels much better chronic smoker 8 cig a day chronic nonproductive smoker's cough history from patient and sons at bedside I tried to review antiibotics allergies with [facility] sons state [place] allergy since childhood- they dont know what she reports all her allergies at tongue burning!-suspect this is not the case - History Source History Provided By: Patient, Family Member Limitations to Obtaining History: Poor Historian - Past Medical History Cardio/Vascular: Yes: CAD, CHF, HTN, Hyperlipdemia Pulmonary: Yes: COPD ...: No Psych: Yes: Schizophrenia (1) Endocrine: Yes: Hyperthyroidism - Past Surgical History Past Surgical History: Yes: Additional Surgical History: coronary stents - Alcohol/Substance Use Hx Alcohol Use: No - Smoking History Smoking history: Unknown if ever smoked Have you smoked in the past 12 months: No - Social History Usual Living Arrangement: Assisted Living ADL: Support Services Place of : [facility] History of Recent Travel: No Home Medications - Allergies Allergies/Adverse Reactions: Allergies Allergy/AdvReac Type Severity Reaction Status Date / Time ciprofloxacin [From Cipro] Allergy Verified 01/14/18 03:05 erythromycin base Allergy Verified 01/14/18 03:05 Penicillins Allergy Verified 01/14/18 03:05 shellfish derived Allergy Verified 01/14/18 03:05 - Home Medications Home Medications: Ambulatory Orders Amlodipine Besylate [Norvasc -] 5 mg PO DAILY 01/14/18 Aspirin [ASA -] 81 mg PO DAILY 01/14/18 Bupropion HCl [Wellbutrin Sr] 150 mg PO BID 01/14/18 Carvedilol [Coreg -] 50 mg PO BID 01/14/18 Clonidine HCl 0.1 mg PO HS 01/14/18 Clopidogrel Bisulfate [Plavix -] 75 mg PO DAILY 01/14/18 Furosemide [Lasix] 40 mg PO DAILY 01/14/18 Gabapentin [Neurontin] 100 mg BUC DAILY 01/14/18 Insulin Aspart [Novolog] 01/14/18 Insulin Glargine,Hum.rec.anlog [Lantus] 7 units SQ HS 01/14/18 Isosorbide Mononitrate [Imdur -] 60 mg PO DAILY 01/14/18 Methimazole 10 mg PO DAILY 01/14/18 Pantoprazole Sodium [Protonix] 40 mg PO DAILY 01/14/18 Perphenazine 8 mg PO DAILY 01/14/18 Ramipril 10 mg PO DAILY 01/14/18 Sennosides [Senna -] 1 tab PO DAILY 01/14/18 Simvastatin [Zocor] 10 mg PO HS 01/14/18 Sitagliptin Phos/Metformin HCl [Janumet Xr 100-1,000 mg Tablet] 1 tab PO DAILY 01/14/18 Family Disease History - Family Disease History Family History: Unable to Obtain (reports diabetes and htn) Review of Systems - Review of Systems Constitutional: denies: Chills, Fever Eyes: reports: No Symptoms HENT: reports: No Symptoms. denies: Difficult Swallowing Neck: reports: No Symptoms Cardiovascular: reports: Edema. denies: Chest Pain Respiratory: reports: Cough, SOB Gastrointestinal: denies: No Symptoms, Abdominal Pain Genitourinary: reports: No Symptoms Physical Exam Vital Signs: Vital Signs Temperature 98.2 F 01/14/18 10:05 Pulse Rate 76 01/14/18 10:05 Respiratory Rate 14 01/14/18 10:05 Blood Pressure 151/61 01/14/18 10:05 O2 Sat by Pulse Oximetry (%) 94 L 01/14/18 11:25 Constitutional: Yes: Well Nourished, No Distress, Calm Eyes: Yes: Conjunctiva Clear HENT: Yes: Atraumatic, Normocephalic, Other (edentulous). No: Thrush Neck: Yes: Supple Cardiovascular: Yes: Regular Rate and Rhythm Respiratory: Yes: Other (crackles at bases) Gastrointestinal: Yes: Normal Bowel Sounds, Soft ...Rectal Exam: Yes: Deferred Edema: Yes Edema: LLE: 1+, RLE: 1+ Psychiatric: Yes: Alert, Oriented Labs: CBC, BMP 01/14/18 09:45 01/14/18 03:00 Imaging - Results Chest X-ray: Report Reviewed, Image Reviewed Problem List - Problems (1) Acute respiratory failure Code(s): J96.00 - ACUTE RESPIRATORY FAILURE, UNSP W HYPOXIA OR HYPERCAPNIA (2) CHF exacerbation Code(s): I50.9 - HEART FAILURE, UNSPECIFIED (3) Allergy to multiple antibiotics Code(s): Z88.1 - ALLERGY STATUS TO OTHER ANTIBIOTIC AGENTS STATUS (4) Cigarette smoker Code(s): F17.210 - NICOTINE DEPENDENCE, CIGARETTES, UNCOMPLICATED Assessment/Plan given rapid clinical improvement with diuresis with improvement in Hypoxia and rapid clinical onset suspect this all CHF no fevers to suggest pneumonia nature of multiple antibioitic allergies unclear patient is poor historian smoking cessation advised d/w ICU staff
--- NOTE | 2018-01-14 11:41 | CONSULT ---
Consult - text type - Consultation Consultation Note: PULM/CCM Pt seen and examined in the ICU CC: shortness of breath HPI: Briefly Ms Brown is a 67 y/o woman with hx of COPD, CHFpEF, DM, HTN recent admission in november for CHF exacerbation requiring intubation now presenting with acute shortness of breath, w/o sick prodrome, in setting of increase LE edema. Pt resides in assisted living, noted to be acutely short of breath. Pt relates onset of symptoms last night at ~ 10pm. In ED pt was hypertensive, tachycardic, tachypneic, afebrile. CXR with pulm edema. Given IV lasix, doxycyline, and placed on NIV. She had MOLST which showed DNR/DNI, abg 7., not intubated. Improved with diuresis and NIV. In ICU pt negative 1600cc, transitioned off NIV to NC. Past Medical History [employer] Other Cardio/Vascular CHF Psych Schizophrenia (1) Social History Smoking history Unknown if ever smoked Have you smoked in the past 12 No months Hx Alcohol Use No Home Medications Medication Instructions Recorded Amlodipine Besylate [Norvasc -] 5 mg PO DAILY 01/14/18 Aspirin [ASA -] 81 mg PO DAILY 01/14/18 Bupropion HCl [Wellbutrin Sr] 150 mg PO BID 01/14/18 Carvedilol [Coreg -] 50 mg PO BID 01/14/18 Clonidine HCl 0.1 mg PO HS 01/14/18 Clopidogrel Bisulfate [Plavix -] 75 mg PO DAILY 01/14/18 Furosemide [Lasix] 40 mg PO DAILY 01/14/18 Gabapentin [Neurontin] 100 mg BUC DAILY 01/14/18 Insulin Aspart [Novolog] 01/14/18 Insulin Glargine,Hum.rec.anlog 7 units SQ HS 01/14/18 [Lantus] Isosorbide Mononitrate [Imdur -] 60 mg PO DAILY 01/14/18 Methimazole 10 mg PO DAILY 01/14/18 Pantoprazole Sodium [Protonix] 40 mg PO DAILY 01/14/18 Perphenazine 8 mg PO DAILY 01/14/18 Ramipril 10 mg PO DAILY 01/14/18 Sennosides [Senna -] 1 tab PO DAILY 01/14/18 Simvastatin [Zocor] 10 mg PO HS 01/14/18 Sitagliptin Phos/Metformin HCl 1 tab PO DAILY 01/14/18 [Janumet Xr 100-1,000 mg Tablet] Vital Signs Temp 98.2 F 01/14/18 10:05 Pulse 76 01/14/18 10:05 Resp 14 01/14/18 10:05 BP 151/61 01/14/18 10:05 Pulse Ox 94 L 01/14/18 11:25 Intake & Output 01/13/18 01/13/18 01/14/18 11:59 23:59 11:59 Intake Total 300 Output Total 1800 Balance -1500 Weight 106.254 kg Intake: Oral 300 Output: Urine 1800 Gutierrez 1800 Other: Voiding Method Indwelling Catheter Bowel Movement No Height 5 ft 6 in Body Mass Index (BMI) 37.8 Weight Measurement Method Built in [facility] Weight Measurement Method Estimated by Staff ROS: negative except as per HPI CXR: rotated film, pulm edema pattern, cannot r/o infiltrate EKG: Sinus, 1st degree AV, LVH, incomplete R bundle, no acute ST changes. PE: Gen: non-toxic appearing eld woman, without distress HEENT: + jvd, trach midline, PERRL PULM: bibasilar crackles, scattered wheeze, dry cough CV: regular, unable to appreciate m/r/g ABD: soft, NT, ND EXT: 2+ dependent edema Neuro: intact, non focal A/ 67 y/o woman with CHFpEF, now with CHF exacerbation and hypercapneic resp failure improved with diuresisi P/ -diuresis, goal neg balance 2L today - would recommend holding abx, suspect all volume -medrol taper -nebs prn -restart home meds -glucose control -NIV as needed -Fio2 for Spo2 92 -palliative care consult on tuesday, pt unsure about CCM/NIV/ETT (son's feel short term CCM in line with her wishes) [place] ACNP [id number]
[2018-01-14] MEDS ORDERED: INSULIN (LEVEMIR) 100 UNITS/ML UNITS SQ ONE (13:04)
[2018-01-14] MEDS: INSULIN SLIDING SCALE (NOVOLOG) 1 VIAL SQ SCH ×4 (13:30→21:20)
--- NOTE | 2018-01-14 16:53 | EKG ---
Test Reason : Blood Pressure : / mmHG Vent. Rate : 096 BPM Atrial Rate : 096 BPM P-R Int : 216 ms QRS Dur : 108 ms QT Int : 380 ms P-R-T Axes : 061 -36 079 degrees QTc Int : 480 ms SINUS RHYTHM WITH 1ST DEGREE A-V BLOCK LEFT AXIS DEVIATION INCOMPLETE RIGHT BUNDLE BRANCH BLOCK MINIMAL VOLTAGE CRITERIA FOR LVH, MAY BE NORMAL VARIANT ANTEROSEPTAL INFARCT (CITED ON OR BEFORE 15-NOV-2017) ABNORMAL ECG WHEN COMPARED WITH ECG OF 18-NOV-2017 08:44, VENT. RATE HAS INCREASED BY 37 BPM CLINICAL CORRELATION IS RECOMMENDED BASELINE ARTIFACT Confirmed by HOLLI DOMINGUEZ, EMERITA ([id number]) on 01/14/2018 4:52:57 PM Referred By: Confirmed By:EMERITA DE LA GARZA MD
[2018-01-14] MEDS: CHLORHEXIDINE GLUCONATE 4% CLEANSER FOR DECOLONIZATION TP SCH (21:13)
[2018-01-15] MEDS: methylPREDNISolone NA SUCC 40 MG/1 ML VIAL IVPUSH SCH ×3 (03:29→21:40)
[2018-01-15 05:59] LABS: BASO % 0.2 % (0-2.0); HEMATOCRIT 31.5 % (32.4-45.2); HEMOGLOBIN 10.2 GM/dL (10.7-15.3); LYMPH % 7.6 % (8-40); MCH 28.2 pg (25.7-33.7); MCHC 32.3 g/dl (32.0-36.0); MEAN CELL VOLUME 87.3 fl (80-96); MEAN PLT VOLUME 8.8 fl (7.5-11.1); MONO % 1.7 % (3.8-10.2); NEUT % 90.5 % (42.8-82.8); PLATELET COUNT 204 K/MM3 (134-434); RBC 3.61 M/mm3 (3.60-5.2); RDW 15.8 % (11.6-15.6); WHITE BLOOD COUNT 11.8 K/mm3 (4.0-10.0)
[2018-01-15] MEDS: HEPARIN NA (PORCINE) 5,000 UNITS/ML 1ML VIAL SQ SCH ×3 (06:08→21:40)
[2018-01-15] MEDS: INSULIN SLIDING SCALE (NOVOLOG) 1 VIAL SQ SCH ×5 (06:09→23:12)
[2018-01-15 07:25] LABS: ALBUMIN 2.5 g/dl (3.4-5.0); ALK PHOS 173 U/L (45-117); ANION GAP 9 MMOL/L (8-16); BILIRUBIN,TOTAL 0.2 mg/dL (0.2-1); BLOOD UREA NITROGEN 47 mg/dL (7-18); CALCIUM 8.5 mg/dL (8.5-10.1); CHLORIDE 108 mmol/L (98-107); CO2 25 mmol/L (21-32); CREATININE 0.8 mg/dL (0.55-1.3); MAGNESIUM 1.9 mg/dL (1.8-2.4); POTASSIUM 4.5 mmol/L (3.5-5.1); SGOT/AST 22 U/L (15-37); SGPT/ALT 20 U/L (13-61); SODIUM 141 mmol/L (136-145)
--- NOTE | 2018-01-15 07:35 | PN ---
Teaching Attending Note Name of Resident: Lucio Mahmood ATTENDING PHYSICIAN STATEMENT I saw and evaluated the patient. I reviewed the resident's note and discussed the case with the resident. I agree with the resident's findings and plan as documented. SUBJECTIVE:states breathing is improved. still difficult to breathe. denies CP, SOB, fever, chills, N/V/C/D or cough she states her that her lasix was recently reduced OBJECTIVE: Last Vital Signs Temp Pulse Resp BP Pulse Ox 98.3 F 67 20 163/61 96 01/15/18 06:00 01/15/18 06:00 01/15/18 06:00 01/15/18 06:00 01/15/18 06:13 Intake & Output 01/12/18 01/13/18 01/14/18 01/15/18 23:59 23:59 23:59 23:59 Intake Total 1540 400 Output Total 3800 600 Balance -2260 -200 Weight 234 lb 4 oz 229 lb 5 oz General NAD CV S1 S2 RRR no murmur/rub/gallop Lungs mild wheezing, decreased breath sounds B/L bases Abdomen soft NT/ND Extremities 1+ pitting edema B/L LE ASSESSMENT AND PLAN: 67yo F wtih PMH HTN, dyslipidemia, DM, CAD s/p stent, schizophrenia, COPD, hyperthyroid from [facility] due to acute respiratory distress 1. Acute hypercapnic hypoxic respiratory distress- likely due to acute on chronic CHF. diuresed well yesterday and now saturating 96% on NC. will cont lasix 40mg BID. reduce medrol to 40mg BID. evaluated by ID and agree there is no signs of infection as pt drastically improved with diuresis and with absence of fever or leukocytosis would hold abx. titrate down supplemental oxygen as tolerated. 2. SIRS- now resolved. no signs of PNA or infection requiring abx. now off abx. Cx negative 3. BOB- pre-renal due to volume overload. improving. avoid nephrotoxic agents. urinating well. will d/c fine 4. DM- will re-start levemir as eating. titrate to optimize sugar control. hold oral agents 5. CAD s/p stent- cont plavix/coreg/imdur/asa/statin 6. schizophrenia 7. Hyperthyroid- TSH elevated. will repeat TFT in a few days to evaluate if elevated as may falsely be elevated in setting of acute illness. cont methimazole 8. DNR. not DNI (correction from chart from yesterday). 9. stable for floors The care of this patient involved high complexity decision making to prevent further life threatening deterioration of the patient's condition and/or to evaluate & treat vital organ system(s) failure or risk of failure. 36 mins
[2018-01-15 08:06] LABS: GLUCOSE,RANDOM 301 mg/dL (74-106)
[2018-01-15] MEDS ORDERED: FUROSEMIDE 40 MG/4 ML INJECTABLE VIAL ONE (08:37)
--- NOTE | 2018-01-15 08:38 | PN ---
Physical Exam: SUBJECTIVE: Patient seen and examined this AM. She states she is doing much better than on admission. She says she is urinating a lot and that her breathing is greatly improved. OBJECTIVE: Vital Signs Period Temp Pulse Resp BP Sys/Calero Pulse Ox Last 24 Hr 98.2 F-99.7 F 64-81 14-22 141-175/58-79 94-100 GENERAL: A&O, morbidly obese, no acute distress HEAD: Normocephalic, atraumatic. EYES: PERRL, no scleral icterus EARS, NOSE, THROAT: oropharynx clear without exudates. Moist mucous membranes. NECK: supple without lymphadenopathy LUNGS: Bibasilar crackles HEART: Regular rate and rhythm, normal S1 and S2 without murmur ABDOMEN: Soft, nontender to palpation, normoactive bowel sounds MUSCULOSKELETAL: No bony deformities or tenderness. EXTREMITIES: 2+ pulses, warm, well-perfused. 1+ edema b/l NEUROLOGICAL: Cranial nerves II-XII grossly intact. Normal speech. PSYCHIATRIC: Cooperative. Good eye contact. Appropriate mood and affect. SKIN: Warm, dry, no rashes or lesions noted Laboratory Results - last 24 hr 01/14/18 01/14/18 01/14/18 09:45 09:45 09:45 WBC RBC Hgb Hct MCV MCH MCHC RDW Plt Count MPV Absolute Neuts (auto) Neutrophils % Neutrophils % (Manual) Band Neutrophils % Lymphocytes % Lymphocytes % (Manual) Monocytes % Monocytes % (Manual) Eosinophils % Eosinophils % (Manual) Basophils % Basophils % (Manual) Myelocytes % (Man) Promyelocytes % (Man) Blast Cells % (Manual) Nucleated RBC % Metamyelocytes Hypochromia Platelet Estimate Polychromasia Poikilocytosis Anisocytosis Microcytosis Macrocytosis Sodium Potassium Chloride Carbon Dioxide Anion Gap BUN Creatinine Creat Clearance w eGFR POC Glucometer Random Glucose Lactic Acid 2.6 H* Calcium Magnesium Total Bilirubin AST ALT Alkaline Phosphatase B-Natriuretic Peptide 909.0 H Total Protein Albumin TSH 6.55 H 01/14/18 01/14/18 01/14/18 09:45 12:00 17:16 WBC 10.2 H RBC 3.73 Hgb 10.5 L Hct 33.1 MCV 88.8 MCH 28.2 MCHC 31.8 L RDW 16.0 H Plt Count 206 D MPV 8.5 Absolute Neuts (auto) 9.3 H Neutrophils % 91.0 H D Neutrophils % (Manual) 87.8 H Band Neutrophils % 2.0 Lymphocytes % 5.8 L D Lymphocytes % (Manual) 7.1 L Monocytes % 2.5 L Monocytes % (Manual) 3 L Eosinophils % 0.1 D Eosinophils % (Manual) 0.0 Basophils % 0.6 Basophils % (Manual) 0.0 Myelocytes % (Man) 0 Promyelocytes % (Man) 0 Blast Cells % (Manual) 0 Nucleated RBC % 0 Metamyelocytes 0 Hypochromia 0 Platelet Estimate Normal Polychromasia 1+ Poikilocytosis 0 Anisocytosis 1+ Microcytosis 1+ Macrocytosis 0 Sodium Potassium Chloride Carbon Dioxide Anion Gap BUN Creatinine Creat Clearance w eGFR POC Glucometer [phone] Random Glucose 438 H* Lactic Acid Calcium Magnesium Total Bilirubin AST ALT Alkaline Phosphatase B-Natriuretic Peptide Total Protein Albumin TSH 01/14/18 01/15/18 01/15/18 21:19 05:18 05:30 WBC 11.8 H RBC 3.61 Hgb 10.2 L Hct 31.5 L MCV 87.3 MCH 28.2 MCHC 32.3 RDW 15.8 H Plt Count 204 MPV 8.8 Absolute Neuts (auto) 10.6 H Neutrophils % 90.5 H Neutrophils % (Manual) Band Neutrophils % Lymphocytes % 7.6 L D Lymphocytes % (Manual) Monocytes % 1.7 L Monocytes % (Manual) Eosinophils % 0.0 D Eosinophils % (Manual) Basophils % 0.2 Basophils % (Manual) Myelocytes % (Man) Promyelocytes % (Man) Blast Cells % (Manual) Nucleated RBC % 0 Metamyelocytes Hypochromia Platelet Estimate Polychromasia Poikilocytosis Anisocytosis Microcytosis Macrocytosis Sodium Potassium Chloride Carbon Dioxide Anion Gap BUN Creatinine Creat Clearance w eGFR POC Glucometer [phone] Random Glucose Lactic Acid Calcium Magnesium Total Bilirubin AST ALT Alkaline Phosphatase B-Natriuretic Peptide Total Protein Albumin TSH 01/15/18 05:30 WBC RBC Hgb Hct MCV MCH MCHC RDW Plt Count MPV Absolute Neuts (auto) Neutrophils % Neutrophils % (Manual) Band Neutrophils % Lymphocytes % Lymphocytes % (Manual) Monocytes % Monocytes % (Manual) Eosinophils % Eosinophils % (Manual) Basophils % Basophils % (Manual) Myelocytes % (Man) Promyelocytes % (Man) Blast Cells % (Manual) Nucleated RBC % Metamyelocytes Hypochromia Platelet Estimate Polychromasia Poikilocytosis Anisocytosis Microcytosis Macrocytosis Sodium 141 Potassium 4.5 Chloride 108 H Carbon Dioxide 25 Anion Gap 9 BUN 47 H Creatinine 0.8 Creat Clearance w eGFR > 60 POC Glucometer Random Glucose 301 H* Lactic Acid Calcium 8.5 Magnesium 1.9 Total Bilirubin 0.2 AST 22 ALT 20 Alkaline Phosphatase 173 H B-Natriuretic Peptide Total Protein 6.0 L Albumin 2.5 L TSH Active Medications Generic Name Dose Route Start Last Admin Trade Name Freq PRN Reason Stop Dose Admin Amlodipine Besylate 5 mg 01/14/18 10:00 01/14/18 10:23 Norvasc - PO 5 mg DAILY JOHAN Administration Aspirin 81 mg 01/14/18 10:00 01/14/18 10:23 Asa - PO 81 mg DAILY JOHAN Administration Bupropion HCl 150 mg 01/14/18 10:00 01/14/18 22:07 Wellbutrin Xl - PO 150 mg BID JOHAN Administration Carvedilol 50 mg 01/14/18 10:00 01/14/18 21:12 Coreg - PO 50 mg BID JOHAN Administration Chlorhexidine Gluconate 1 applic 01/14/18 22:00 01/14/18 21:13 Hibiclens For Decolonization - TP 1 applic HS JOHAN Administration Clopidogrel Bisulfate 75 mg 01/14/18 10:00 01/14/18 10:23 Plavix - PO 75 mg DAILY JOHAN Administration Furosemide 40 mg 01/15/18 14:00 Lasix Injection - IVPUSH BID@0600,1400 [facility] Heparin Sodium (Porcine) 5,000 unit 01/14/18 06:00 01/15/18 06:08 Heparin - SQ 5,000 unit TID JOHAN Administration Insulin Aspart 1 vial 01/14/18 07:00 01/15/18 06:09 Novolog Vial Sliding Scale - SQ 6 units ACHS JOHAN Administration Protocol Methimazole 10 mg 01/14/18 10:00 01/14/18 11:06 Tapazole - PO 10 mg DAILY JOHAN Administration Methylprednisolone Sodium Succinate 40 mg 01/14/18 09:00 01/15/18 03:29 Solu-Medrol - IVPUSH 40 mg Q6H-IV JOHAN Administration Mupirocin 1 applic 01/14/18 10:00 01/14/18 21:12 Bactroban Ointment (For Decolonization) - NS 01/19/18 09:59 1 applic BID JOHAN Administration Pantoprazole Sodium 40 mg 01/14/18 10:00 01/14/18 10:23 Protonix - PO 40 mg DAILY JOHAN Administration Perphenazine 8 mg 01/14/18 10:00 01/14/18 11:06 Trilafon PO 8 mg DAILY JOHAN Administration Senna 1 tab 01/14/18 10:00 01/14/18 10:23 Senna - PO 1 tab DAILY JOHAN Administration ASSESSMENT/PLAN: 67 yo female with PMH HTN, HLD, CAD s/p NM s/p stents, CHF, COPD, hyperthyroidism, NIDDM with retinopathy and neuropathy, frequent falls, and schizophrenia admitted with acute respiratory distress. Acute Hypercapnic Hypoxic Respiratory Distress -Pt with acute on chronic CHF, respiratory distress likely secondary to fluid overload -Dramatic improvement with diuresis -Continue Lasix 40 mg IV BID -Daily weights -ID Consult appreciated, monitor off Abx for now -Initially on bilevel ventilation, currently only requiring nasal cannula -DNR confirmed, pt is NOT DNI as per healthcare proxy -Transfer to Med/Surg BOB -Likely Pre-renal secondary to volume overload -Avoid nephrotoxic drugs -Continue to monitor BMP NIDDM -Restart levemir 7 units -BMGs ACHs -Insulin sliding scale Schizophrenia -Wellbutrin 150 mg BID Hyperthyroid -TSH mildly elevated at 6.55 -On Methimazole 10 mg PO Daily -Repeat TSH in a few days CAD s/p NM with stent -ASA 81 mg PO Daily -Plavix 75 mg PO Daily DVT Prophylaxis -Heparin 5000 units SQ TID FEN -Fluids: None -Electrolytes: No electrolyte abnormalities, BMP in AM -Nutrition: Diabetic Sodium Controlled Diet Disposition ICU, Can be transferred to Med/Surg Visit type - Emergency Visit Emergency Visit: Yes ED Registration Date: 01/14/18 Care time: The patient presented to the Emergency Department on the above date and was hospitalized for further evaluation of their emergent condition. - New Patient This patient is new to me today: Yes Date on this admission: 01/15/18 - Critical Care Critical Care patient: No
[2018-01-15] MEDS ORDERED: PT OWN MED DRAWER 7, Y5N ONE (08:39)
[2018-01-15] MEDS ORDERED: FUROSEMIDE 40 MG/4 ML INJECTABLE VIAL IVPUSH ONE (08:52)
[2018-01-15] MEDS: PANTOPRAZOLE 40 MG TABLET (FP) PO SCH (09:03)
[2018-01-15] MEDS: SENNOSIDES 8.6MG TABLET (FP) PO SCH (09:03)
[2018-01-15] MEDS: amLODIPine BESYLATE 5 MG TABLET (FP) PO SCH (09:04)
[2018-01-15] MEDS: CARVEDILOL 25 MG TABLET (FP) PO SCH ×2 (09:04→21:39)
[2018-01-15] MEDS: ASPIRIN 81 MG CHEWABLE TABLETS PO SCH (09:04)
[2018-01-15] MEDS: MUPIROCIN 2% TOPICAL OINTMENT FOR DECOLONIZATION NS SCH ×2 (09:05→21:43)
--- NOTE | 2018-01-15 09:10 | PN ---
Progress Note (short form) - Note Progress Note: Pulm/CCM Seen and examined in ICU Progress note; 24HR; -diuresed 2L, NIV--> NC -GNR in urine but no dysuria or fever -stable overnight, slept Vital Signs Temp 98.3 F 01/15/18 06:00 Pulse 67 01/15/18 08:39 Resp 18 01/15/18 08:00 BP 146/67 01/15/18 08:00 Pulse Ox 96 01/15/18 08:39 Intake & Output 01/14/18 01/14/18 01/15/18 11:59 23:59 11:59 Intake Total 300 1240 400 Output Total 1800 2000 600 Balance -1500 -760 -200 Weight 106.254 kg 104.014 kg Intake: IVPB 100 Oral 300 1140 400 Output: Urine 1800 2000 600 Gutierrez 1800 2000 600 Other: Voiding Method Indwelling Catheter Indwelling Catheter Bowel Movement No No Height 5 ft 6 in Body Mass Index (BMI) 37.8 Weight Measurement Method [facility] in [facility] Weight Measurement Method Estimated by Staff CBCD WBC 11.8 K/mm3 (4.0-10.0) H 01/15/18 05:30 RBC 3.61 M/mm3 (3.60-5.2) 01/15/18 05:30 Hgb 10.2 GM/dL (10.7-15.3) L 01/15/18 05:30 Hct 31.5 % (32.4-45.2) L 01/15/18 05:30 MCV 87.3 fl (80-96) 01/15/18 05:30 MCHC 32.3 g/dl (32.0-36.0) 01/15/18 05:30 RDW 15.8 % (11.6-15.6) H 01/15/18 05:30 Plt Count 204 K/MM3 (134-434) 01/15/18 05:30 MPV 8.8 fl (7.5-11.1) 01/15/18 05:30 CMP Sodium 141 mmol/L (136-145) 01/15/18 05:30 Potassium 4.5 mmol/L (3.5-5.1) 01/15/18 05:30 Chloride 108 mmol/L (98-107) H 01/15/18 05:30 Carbon Dioxide 25 mmol/L (21-32) 01/15/18 05:30 Anion Gap 9 MMOL/L (8-16) 01/15/18 05:30 BUN 47 mg/dL (7-18) H 01/15/18 05:30 Creatinine 0.8 mg/dL (0.55-1.3) 01/15/18 05:30 Creat Clearance w eGFR > 60 (>60) 01/15/18 05:30 Random Glucose 301 mg/dL (74-106) H* 01/15/18 05:30 Calcium 8.5 mg/dL (8.5-10.1) 01/15/18 05:30 Total Bilirubin 0.2 mg/dL (0.2-1) 01/15/18 05:30 AST 22 U/L (15-37) 01/15/18 05:30 ALT 20 U/L (13-61) 01/15/18 05:30 Alkaline Phosphatase 173 U/L (45-117) H 01/15/18 05:30 Total Protein 6.0 g/dl (6.4-8.2) L 01/15/18 05:30 Albumin 2.5 g/dl (3.4-5.0) L 01/15/18 05:30 CARDIAC ENZYMES Troponin I < 0.02 ng/ml (0.00-0.05) 01/14/18 03:00
--- NOTE | 2018-01-15 09:27 | PN ---
Progress Note (short form) - Note Progress Note: markedly improved alert conversing following commands on nc oxygen no urinary symptoms Vital Signs Period Temp Pulse Resp BP Sys/Calero Pulse Ox Last 24 Hr 98.2 F-99.7 F 64-81 14-22 141-175/58-79 94-100 cor-rrr lungs bibasilar crackles abd soft,nt ext +edema CBC, BMP 01/15/18 05:30 01/15/18 05:30 Microbiology 01/14/18 03:58 Urine - Urine - Catheterized Urine Culture - Preliminary Non Lactose Fermenting Gnb 01/14/18 03:00 Blood - Peripheral Venous Blood Culture - Preliminary NO GROWTH OBTAINED AFTER 24 HOURS, INCUBATION TO CONTINUE FOR 4 DAYS. 01/14/18 03:00 Blood - Peripheral Venous Blood Culture - Preliminary NO GROWTH OBTAINED AFTER 24 HOURS, INCUBATION TO CONTINUE FOR 4 DAYS. 01/14/18 10:50 Urine For Antigen Detection Legionella Antigen - Final 01/14/18 10:50 Urine For Antigen Detection Streptococcus pneumoniae Antigen (M - Final a/p chf- improving doubt pneumonia continue off antibiotics doubt uti- low colony count, no symptoms, d/c fine if possible diabetes multiple antibiotic allergies d/w icu staff Problem List - Problems (1) Acute respiratory failure Code(s): J96.00 - ACUTE RESPIRATORY FAILURE, UNSP W HYPOXIA OR HYPERCAPNIA (2) CHF exacerbation Code(s): I50.9 - HEART FAILURE, UNSPECIFIED (3) Allergy to multiple antibiotics Code(s): Z88.1 - ALLERGY STATUS TO OTHER ANTIBIOTIC AGENTS STATUS (4) Cigarette smoker Code(s): F17.210 - NICOTINE DEPENDENCE, CIGARETTES, UNCOMPLICATED
[2018-01-15] MEDS: CLOPIDOGREL BISULFATE 75 MG TABLET (FP) PO SCH (10:30)
[2018-01-15] MEDS: PERPHENAZINE 8 MG TABLET PO SCH (11:39)
[2018-01-15] MEDS: METHIMAZOLE 10 MG TABLET (FP) PO SCH (11:39)
[2018-01-15] MEDS: FUROSEMIDE 40 MG/4 ML INJECTABLE VIAL IVPUSH SCH (15:22)
[2018-01-15] MEDS: CHLORHEXIDINE GLUCONATE 4% CLEANSER FOR DECOLONIZATION TP SCH (21:40)
[2018-01-15] MEDS ORDERED: INSULIN (LEVEMIR) 100 UNITS/ML UNITS SQ SCH (22:00)
[2018-01-15] MEDS ORDERED: ACETAMINOPHEN 325 MG TABLET (FP) PO PRN (23:44)
[2018-01-15] MEDS ORDERED: ALBUTEROL SO4 0.083% IH SOL 2.5 MG/3 ML VIAL.NEB. NEB PRN (23:45)
[2018-01-16] MEDS: FUROSEMIDE 40 MG/4 ML INJECTABLE VIAL IVPUSH SCH ×2 (06:40→13:19)
[2018-01-16] MEDS: HEPARIN NA (PORCINE) 5,000 UNITS/ML 1ML VIAL SQ SCH ×3 (06:40→21:55)
[2018-01-16] MEDS: INSULIN SLIDING SCALE (NOVOLOG) 1 VIAL SQ SCH ×4 (06:40→21:58)
[2018-01-16 07:25] LABS: ANION GAP 5 MMOL/L (8-16); BLOOD UREA NITROGEN 58 mg/dL (7-18); CALCIUM 8.2 mg/dL (8.5-10.1); CHLORIDE 102 mmol/L (98-107); CO2 28 mmol/L (21-32); CREATININE 1.1 mg/dL (0.55-1.3); POTASSIUM 4.4 mmol/L (3.5-5.1); SODIUM 135 mmol/L (136-145)
[2018-01-16 07:26] LABS: HEMATOCRIT 32.3 % (32.4-45.2); HEMOGLOBIN 10.5 GM/dL (10.7-15.3); MCH 28.5 pg (25.7-33.7); MCHC 32.6 g/dl (32.0-36.0); MEAN CELL VOLUME 87.3 fl (80-96); PLATELET COUNT 210 K/MM3 (134-434); RBC 3.69 M/mm3 (3.60-5.2); RDW 15.4 % (11.6-15.6); WHITE BLOOD COUNT 11.6 K/mm3 (4.0-10.0)
[2018-01-16 07:30] LABS: GLUCOSE,RANDOM 344 mg/dL (74-106)
[2018-01-16] MEDS ORDERED: PT OWN MED DRAWER 7, Y5N ONE (09:03)
[2018-01-16] MEDS: methylPREDNISolone NA SUCC 40 MG/1 ML VIAL IVPUSH SCH (09:14)
[2018-01-16] MEDS: SENNOSIDES 8.6MG TABLET (FP) PO SCH (09:14)
[2018-01-16] MEDS: amLODIPine BESYLATE 5 MG TABLET (FP) PO SCH (09:14)
[2018-01-16] MEDS: ASPIRIN 81 MG CHEWABLE TABLETS PO SCH (09:16)
[2018-01-16] MEDS: PANTOPRAZOLE 40 MG TABLET (FP) PO SCH (09:16)
[2018-01-16] MEDS: MUPIROCIN 2% TOPICAL OINTMENT FOR DECOLONIZATION NS SCH ×2 (09:16→21:55)
[2018-01-16] MEDS: PERPHENAZINE 8 MG TABLET PO SCH (09:17)
[2018-01-16] MEDS: CLOPIDOGREL BISULFATE 75 MG TABLET (FP) PO SCH (09:17)
[2018-01-16] MEDS: CARVEDILOL 25 MG TABLET (FP) PO SCH ×2 (09:18→21:53)
[2018-01-16] MEDS: METHIMAZOLE 10 MG TABLET (FP) PO SCH (09:18)
--- NOTE | 2018-01-16 10:55 | PN ---
Progress Note (short form) - Note Progress Note: markedly improved alert on nc oxygen no urinary symptoms wsa oob to chair yesterday feels well Vital Signs Period Temp Pulse Resp BP Sys/Calero Pulse Ox Last 24 Hr 98.4 F-98.9 F 60-67 15-21 158-185/54-88 96-97 cor-rrr lungs few crackles at bases (much improved) abd soft, nt ext +edema CBC, BMP 01/16/18 05:30 01/16/18 05:30 Microbiology 01/14/18 03:00 Blood - Peripheral Venous Blood Culture - Preliminary NO GROWTH OBTAINED AFTER 48 HOURS, INCUBATION TO CONTINUE FOR 3 DAYS. 01/14/18 03:00 Blood - Peripheral Venous Blood Culture - Preliminary NO GROWTH OBTAINED AFTER 48 HOURS, INCUBATION TO CONTINUE FOR 3 DAYS. 01/14/18 03:58 Urine - Urine - Catheterized Urine Culture - Preliminary Non Lactose Fermenting Gnb 01/14/18 10:50 Urine For Antigen Detection Legionella Antigen - Final 01/14/18 10:50 Urine For Antigen Detection Streptococcus pneumoniae Antigen (M - Final Current Medications Acetaminophen (Tylenol -) 650 mg PO Q4H PRN PRN Reason: PAIN Albuterol Sulfate (Ventolin 0.083% Nebulizer Soln -) 1 amp NEB Q4H PRN PRN Reason: SHORT OF BREATH/WHEEZING Amlodipine Besylate (Norvasc -) 5 mg PO DAILY [facility] Last Admin: 01/16/18 09:14 Dose: 5 mg Aspirin (Asa -) 81 mg PO DAILY [facility] Last Admin: 01/16/18 09:16 Dose: 81 mg Bupropion HCl (Wellbutrin Xl -) 150 mg PO BID [facility] Last Admin: 01/16/18 09:18 Dose: 150 mg Carvedilol (Coreg -) 50 mg PO BID [facility] Last Admin: 01/16/18 09:18 Dose: 50 mg Chlorhexidine Gluconate (Hibiclens For Decolonization -) 1 applic TP HS [facility] Last Admin: 01/15/18 21:40 Dose: 1 applic Clopidogrel Bisulfate (Plavix -) 75 mg PO DAILY [facility] Last Admin: 01/16/18 09:17 Dose: 75 mg Furosemide (Lasix Injection -) 40 mg IVPUSH BID@0600,1400 [facility] Last Admin: 01/16/18 06:40 Dose: 40 mg Heparin Sodium (Porcine) (Heparin -) 5,000 unit SQ TID [facility] Last Admin: 01/16/18 06:40 Dose: 5,000 unit Insulin Aspart (Novolog Vial Sliding Scale -) 1 vial SQ ACHS [facility]; Protocol Last Admin: 01/16/18 06:40 Dose: 8 units Insulin Detemir (Levemir Vial) 7 units SQ HS [facility] Last Admin: 01/15/18 23:11 Dose: 7 units Methimazole (Tapazole -) 10 mg PO DAILY [facility] Last Admin: 01/16/18 09:18 Dose: 10 mg Methylprednisolone Sodium Succinate (Solu-Medrol -) 40 mg IVPUSH BID [facility] Last Admin: 01/16/18 09:14 Dose: 40 mg Mupirocin (Bactroban Ointment (For Decolonization) -) 1 applic NS BID [facility] Stop: 01/19/18 09:59 Last Admin: 01/16/18 09:16 Dose: 1 applic Pantoprazole Sodium (Protonix -) 40 mg PO DAILY [facility] Last Admin: 01/16/18 09:16 Dose: 40 mg Perphenazine (Trilafon) 8 mg PO DAILY [facility] Last Admin: 01/16/18 09:17 Dose: 8 mg Senna (Senna -) 1 tab PO DAILY [facility] Last Admin: 01/16/18 09:14 Dose: Not Given a/p chf- improving doubt pneumonia continue off antibiotics doubt uti- low colony count, no symptoms, fine d/joan diabetes multiple antibiotic allergies suspect leukocytosis secondary to steroids doing well please call back if needed Problem List - Problems (1) Acute respiratory failure Code(s): J96.00 - ACUTE RESPIRATORY FAILURE, UNSP W HYPOXIA OR HYPERCAPNIA (2) CHF exacerbation Code(s): I50.9 - HEART FAILURE, UNSPECIFIED (3) Allergy to multiple antibiotics Code(s): Z88.1 - ALLERGY STATUS TO OTHER ANTIBIOTIC AGENTS STATUS (4) Cigarette smoker Code(s): F17.210 - NICOTINE DEPENDENCE, CIGARETTES, UNCOMPLICATED
[2018-01-16 13:37] VITALS: BMI 36.9
--- NOTE | 2018-01-16 13:39 | PN ---
Teaching Attending Note Name of Resident: Lucio Mahmood ATTENDING PHYSICIAN STATEMENT I saw and evaluated the patient. I reviewed the resident's note and discussed the case with the resident. I agree with the resident's findings and plan as documented. SUBJECTIVE:breathing has improved. denies CP, SOB, fever, chills, cough, N/V/C/ D or orthopnea OBJECTIVE: Last Vital Signs Temp Pulse Resp BP Pulse Ox 98.6 F 60 22 H 116/70 97 01/16/18 10:00 01/16/18 12:00 01/16/18 12:00 01/16/18 12:00 01/16/18 08:01 Intake & Output 01/13/18 01/14/18 01/15/18 01/16/18 23:59 23:59 23:59 23:59 Intake Total 1540 1240 Output Total 3800 2250 500 Balance -2260 -1010 -500 Weight 234 lb 4 oz 229 lb 5 oz 229 lb 8.019 oz General NAD CV S1 S2 RRR no murmur/rub/gallop Lungs CTA B/L no wheezing/rales/rhonchi Abdomen soft NT/ND Extremities 1+ pitting edema B/L LE ASSESSMENT AND PLAN: 67yo F wtih PMH HTN, dyslipidemia, DM, CAD s/p stent, schizophrenia, COPD, hyperthyroid from [facility] due to acute respiratory distress 1. Acute hypercapnic hypoxic respiratory distress- likely due to acute on chronic CHF. saturating 99% on RA. will cont lasix 40mg BID IV. decrease medrol to 40mg daily. cont to hold abx. will need pre and post prior to discharge. daily weights. monitor electrolytes while on lasix. 2. SIRS- now resolved. no signs of PNA or infection requiring abx. now off abx. Cx negative 3. BOB- pre-renal due to volume overload. improving. avoid nephrotoxic agents. urinating well. 4. DM- uncontrolled. increase levemir to 12 units HS. cont to titrate to optimize control. 5. HTN- uncontrolled. will re-start home clonidine dose. monitor 6. CAD s/p stent- cont plavix/coreg/imdur/asa/statin 7. schizophrenia 8. Hyperthyroid- TSH elevated. will repeat TFT in a few days to evaluate if elevated as may falsely be elevated in setting of acute illness. cont methimazole 9. DNR. not DNI (correction from chart from yesterday). 10. stable for floors/ PT eval The care of this patient involved high complexity decision making to prevent further life threatening deterioration of the patient's condition and/or to evaluate & treat vital organ system(s) failure or risk of failure. 35 mins
--- NOTE | 2018-01-16 14:04 | PN ---
Teaching Attending Note Name of Resident: Luis Corrigan ATTENDING PHYSICIAN STATEMENT I saw and evaluated the patient. I reviewed the resident's note and discussed the case with the resident. I agree with the resident's findings and plan as documented. SUBJECTIVE: Patient seen and examined in the ICU. Awake and alert. Reports breathing feels better. No CP. Less SOB. Intake & Output 01/13/18 01/14/18 01/15/18 01/16/18 23:59 23:59 23:59 23:59 Intake Total 1540 1240 Output Total 3800 2250 500 Balance -2260 -1010 -500 Weight 234 lb 4 oz 229 lb 5 oz 229 lb Last Vital Signs Temp Pulse Resp BP Pulse Ox 98.6 F 64 22 H 163/68 97 01/16/18 13:40 01/16/18 13:40 01/16/18 13:40 01/16/18 13:40 01/16/18 08:01 Active Medications Acetaminophen (Tylenol -) 650 mg PO Q4H PRN PRN Reason: PAIN Albuterol Sulfate (Ventolin 0.083% Nebulizer Soln -) 1 amp NEB Q4H PRN PRN Reason: SHORT OF BREATH/WHEEZING Amlodipine Besylate (Norvasc -) 5 mg PO DAILY [facility] Last Admin: 01/16/18 09:14 Dose: 5 mg Aspirin (Asa -) 81 mg PO DAILY [facility] Last Admin: 01/16/18 09:16 Dose: 81 mg Bupropion HCl (Wellbutrin Xl -) 150 mg PO BID [facility] Last Admin: 01/16/18 09:18 Dose: 150 mg Carvedilol (Coreg -) 50 mg PO BID [facility] Last Admin: 01/16/18 09:18 Dose: 50 mg Chlorhexidine Gluconate (Hibiclens For Decolonization -) 1 applic TP HS [facility] Last Admin: 01/15/18 21:40 Dose: 1 applic Clonidine (Catapres -) 0.1 mg PO HS [facility] Clopidogrel Bisulfate (Plavix -) 75 mg PO DAILY [facility] Last Admin: 01/16/18 09:17 Dose: 75 mg Furosemide (Lasix Injection -) 40 mg IVPUSH BID@0600,1400 [facility] Last Admin: 01/16/18 13:19 Dose: 40 mg Heparin Sodium (Porcine) (Heparin -) 5,000 unit SQ TID [facility] Last Admin: 01/16/18 13:19 Dose: 5,000 unit Insulin Aspart (Novolog Vial Sliding Scale -) 1 vial SQ ACHS [facility]; Protocol Last Admin: 01/16/18 11:35 Dose: 8 units Insulin Detemir (Levemir Vial) 7 units SQ HS [facility] Last Admin: 01/15/18 23:11 Dose: 7 units Methimazole (Tapazole -) 10 mg PO DAILY [facility] Last Admin: 01/16/18 09:18 Dose: 10 mg Methylprednisolone Sodium Succinate (Solu-Medrol -) 40 mg IVPUSH BID [facility] Last Admin: 01/16/18 09:14 Dose: 40 mg Mupirocin (Bactroban Ointment (For Decolonization) -) 1 applic NS BID [facility] Stop: 01/19/18 09:59 Last Admin: 01/16/18 09:16 Dose: 1 applic Pantoprazole Sodium (Protonix -) 40 mg PO DAILY [facility] Last Admin: 01/16/18 09:16 Dose: 40 mg Perphenazine (Trilafon) 8 mg PO DAILY [facility] Last Admin: 01/16/18 09:17 Dose: 8 mg Senna (Senna -) 1 tab PO DAILY [facility] Last Admin: 01/16/18 09:14 Dose: Not Given Gen: Awake and alert, NAD HEENT: + jvd, trach midline, PERRL PULM: bibasilar rhonchi, no wheeze, dry cough CV: regular, unable to appreciate m/r/g ABD: soft, NT, ND EXT: 2+ dependent edema Neuro: intact, non focal Laboratory Results - last 24 hr 01/14/18 01/15/18 01/15/18 11:23 17:28 21:56 WBC RBC Hgb Hct MCV MCH MCHC RDW Plt Count MPV Sodium Potassium Chloride Carbon Dioxide Anion Gap BUN Creatinine Creat Clearance w eGFR POC Glucometer > 400 > 400 > 400 Random Glucose Calcium Phosphorus Magnesium 01/15/18 01/16/18 01/16/18 22:00 05:30 05:30 WBC 11.6 H RBC 3.69 Hgb 10.5 L Hct 32.3 L MCV 87.3 MCH 28.5 MCHC 32.6 RDW 15.4 Plt Count 210 MPV 9.0 Sodium 135 L Potassium 4.4 Chloride 102 Carbon Dioxide 28 Anion Gap 5 L BUN 58 H Creatinine 1.1 Creat Clearance w eGFR 49.39 POC Glucometer Random Glucose 451 H* 344 H* Calcium 8.2 L Phosphorus 4.0 Magnesium 2.0 01/16/18 06:11 WBC RBC Hgb Hct MCV MCH MCHC RDW Plt Count MPV Sodium Potassium Chloride Carbon Dioxide Anion Gap BUN Creatinine Creat Clearance w eGFR POC Glucometer [phone] Random Glucose Calcium Phosphorus Magnesium IMP: Acute CHF exacerbation Hypercapneic resp failure Likely OSAS PLAN: Lasix O2 as needed Will need formal OSAS workup after D/C Daily weight Glycemic control Cardiac Telemetry monitoring Dr Velazquez
--- NOTE | 2018-01-16 15:58 | PN ---
Physical Exam: SUBJECTIVE: Patient seen and examined at bedside. Mentation back to baseline, fully oriented, no complaints of pain, SOB, or otherwise. OBJECTIVE: Vital Signs Period Temp Pulse Resp BP Sys/Calero Pulse Ox Last 24 Hr 98.4 F-98.8 F 60-66 15-22 160-185/53-88 96-97 GENERAL: A&Ox3, NAD HEAD: NC/AT EYES: PERRLA, EOMI ENT: Ears normal, nares patent, oropharynx clear without exudates, moist mucous membranes. NECK: Trachea midline, full range of motion, supple. 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 SKIN: Warm, dry, normal turgor, no rashes or lesions noted Laboratory Results - last 24 hr 01/14/18 01/15/18 01/15/18 11:23 17:28 21:56 WBC RBC Hgb Hct MCV MCH MCHC RDW Plt Count MPV Sodium Potassium Chloride Carbon Dioxide Anion Gap BUN Creatinine Creat Clearance w eGFR POC Glucometer > 400 > 400 > 400 Random Glucose Calcium Phosphorus Magnesium 01/15/18 01/16/18 01/16/18 22:00 05:30 05:30 WBC 11.6 H RBC 3.69 Hgb 10.5 L Hct 32.3 L MCV 87.3 MCH 28.5 MCHC 32.6 RDW 15.4 Plt Count 210 MPV 9.0 Sodium 135 L Potassium 4.4 Chloride 102 Carbon Dioxide 28 Anion Gap 5 L BUN 58 H Creatinine 1.1 Creat Clearance w eGFR 49.39 POC Glucometer Random Glucose 451 H* 344 H* Calcium 8.2 L Phosphorus 4.0 Magnesium 2.0 01/16/18 06:11 WBC RBC Hgb Hct MCV MCH MCHC RDW Plt Count MPV Sodium Potassium Chloride Carbon Dioxide Anion Gap BUN Creatinine Creat Clearance w eGFR POC Glucometer [phone] Random Glucose Calcium Phosphorus Magnesium Active Medications Generic Name Dose Route Start Last Admin Trade Name Freq PRN Reason Stop Dose Admin Acetaminophen 650 mg 01/15/18 23:44 Tylenol - PO Q4H PRN PAIN Albuterol Sulfate 1 amp 01/15/18 23:45 Ventolin 0.083% Nebulizer Soln - NEB Q4H PRN SHORT OF BREATH/WHEEZING Amlodipine Besylate 5 mg 01/14/18 10:00 01/16/18 09:14 Norvasc - PO 5 mg DAILY [facility] Administration Aspirin 81 mg 01/14/18 10:00 01/16/18 09:16 Asa - PO 81 mg DAILY [facility] Administration Bupropion HCl 150 mg 01/14/18 10:00 01/16/18 09:18 Wellbutrin Xl - PO 150 mg BID [facility] Administration Carvedilol 50 mg 01/14/18 10:00 01/16/18 09:18 Coreg - PO 50 mg BID [facility] Administration Chlorhexidine Gluconate 1 applic 01/14/18 22:00 01/15/18 21:40 Hibiclens For Decolonization - TP 1 applic HS [facility] Administration Clonidine 0.1 mg 01/16/18 22:00 Catapres - PO HS [facility] Clopidogrel Bisulfate 75 mg 01/14/18 10:00 01/16/18 09:17 Plavix - PO 75 mg DAILY [facility] Administration Furosemide 40 mg 01/15/18 14:00 01/16/18 13:19 Lasix Injection - IVPUSH 40 mg BID@0600,1400 [facility] Administration Heparin Sodium (Porcine) 5,000 unit 01/14/18 06:00 01/16/18 13:19 Heparin - SQ 5,000 unit TID [facility] Administration Insulin Aspart 1 vial 01/14/18 07:00 01/16/18 11:35 Novolog Vial Sliding Scale - SQ 8 units ACHS [facility] Administration Protocol Insulin Detemir 12 units 01/16/18 15:38 Levemir Vial SQ HS [facility] Methimazole 10 mg 01/14/18 10:00 01/16/18 09:18 Tapazole - PO 10 mg DAILY [facility] Administration Methylprednisolone Sodium Succinate 40 mg 01/17/18 10:00 Solu-Medrol - IVPUSH DAILY [facility] Mupirocin 1 applic 01/14/18 10:00 01/16/18 09:16 Bactroban Ointment (For Decolonization) - NS 01/19/18 09:59 1 applic BID [facility] Administration Pantoprazole Sodium 40 mg 01/14/18 10:00 01/16/18 09:16 Protonix - PO 40 mg DAILY [facility] Administration Perphenazine 8 mg 01/14/18 10:00 01/16/18 09:17 Trilafon PO 8 mg DAILY [facility] Administration Senna 1 tab 01/14/18 10:00 01/16/18 09:14 Senna - PO Not Given DAILY [facility] ASSESSMENT/PLAN: 67 y/o F w/ PMHx HTN, HLD, CAD s/p OR s/p stents, CHF, COPD, hyperthyroidism, NIDDM with retinopathy and neuropathy, frequent falls, and schizophrenia brought in by EMS in severe respiratory distress 2/2 CHF exacerbation, AMS, and hypertensive emergency. Markedly improved on Lasix. #neurologic -AMS, toxic-metabolic encephalopathy resolved with treatment of underlying condition #cardiac -BP stabilized on nitropaste in ED -HTN: home clonidine, amlodipine -cont plavix/coreg/imdur/asa/statin -lasix 40mg BID IV -close monitoring #pulmonary -acute hypoxic/hypercapnic respiratory failure resolved -solumedrol 40 IV -off ABx as sepsis/PNA ruled out -NINI screening #ID -off ABx as sepsis/PNA ruled out #Renal -BUN/Cr 58/1.1 -avoid nephrotoxic agents -monitor #GI -no issues at this time #endocrine -DM: SSI, levemir, BGM -hyperthyroid: cont methimazole and repeat TFTs on floors #psych -bupropion #FEN -no IVF at this time -monitor BMP -NPO #PPx -DVT: heparin subq -GI: not indicated at this time #code -DNR/DNI #Dispo -transfer to tele Visit type - Emergency Visit Emergency Visit: No - New Patient This patient is new to me today: No - Critical Care Critical Care patient: Yes Total Critical Care Time (in minutes): 40 Critical Care Statement: The care of this patient involved high complexity decision making to prevent further life threatening deterioration of the patient 's condition and/or to evaluate & treat vital organ system(s) failure or risk of failure.
--- NOTE | 2018-01-16 18:46 | PN ---
Physical Exam: SUBJECTIVE: Patient seen and examined this AM. She states that she is still urinating a lot and that her breathing is greatly improved from admission. OBJECTIVE: Vital Signs Period Temp Pulse Resp BP Sys/Calero Pulse Ox Last 24 Hr 98.4 F-98.8 F 60-71 15-22 128-168/53-75 97-97 GENERAL: A&O, morbidly obese, no acute distress HEAD: Normocephalic, atraumatic. EYES: PERRL, no scleral icterus EARS, NOSE, THROAT: oropharynx clear without exudates. Moist mucous membranes. NECK: supple without lymphadenopathy LUNGS: Bibasilar crackles HEART: Regular rate and rhythm, normal S1 and S2 without murmur ABDOMEN: Soft, nontender to palpation, normoactive bowel sounds MUSCULOSKELETAL: No bony deformities or tenderness. EXTREMITIES: 2+ pulses, warm, well-perfused. 1+ edema b/l NEUROLOGICAL: Cranial nerves II-XII grossly intact. Normal speech. PSYCHIATRIC: Cooperative. Good eye contact. Appropriate mood and affect. SKIN: Warm, dry, no rashes or lesions noted Laboratory Results - last 24 hr 01/14/18 01/15/18 01/15/18 11:23 21:56 22:00 WBC RBC Hgb Hct MCV MCH MCHC RDW Plt Count MPV Sodium Potassium Chloride Carbon Dioxide Anion Gap BUN Creatinine Creat Clearance w eGFR POC Glucometer > 400 > 400 Random Glucose 451 H* Calcium Phosphorus Magnesium 01/16/18 01/16/18 01/16/18 05:30 05:30 06:11 WBC 11.6 H RBC 3.69 Hgb 10.5 L Hct 32.3 L MCV 87.3 MCH 28.5 MCHC 32.6 RDW 15.4 Plt Count 210 MPV 9.0 Sodium 135 L Potassium 4.4 Chloride 102 Carbon Dioxide 28 Anion Gap 5 L BUN 58 H Creatinine 1.1 Creat Clearance w eGFR 49.39 POC Glucometer [phone] Random Glucose 344 H* Calcium 8.2 L Phosphorus 4.0 Magnesium 2.0 01/16/18 11:34 WBC RBC Hgb Hct MCV MCH MCHC RDW Plt Count MPV Sodium Potassium Chloride Carbon Dioxide Anion Gap BUN Creatinine Creat Clearance w eGFR POC Glucometer [phone] Random Glucose Calcium Phosphorus Magnesium Active Medications Generic Name Dose Route Start Last Admin Trade Name Freq PRN Reason Stop Dose Admin Acetaminophen 650 mg 01/15/18 23:44 Tylenol - PO Q4H PRN PAIN Albuterol Sulfate 1 amp 01/15/18 23:45 Ventolin 0.083% Nebulizer Soln - NEB Q4H PRN SHORT OF BREATH/WHEEZING Amlodipine Besylate 5 mg 01/14/18 10:00 01/16/18 09:14 Norvasc - PO 5 mg DAILY [facility] Administration Aspirin 81 mg 01/14/18 10:00 01/16/18 09:16 Asa - PO 81 mg DAILY [facility] Administration Bupropion HCl 150 mg 01/14/18 10:00 01/16/18 09:18 Wellbutrin Xl - PO 150 mg BID [facility] Administration Carvedilol 50 mg 01/14/18 10:00 01/16/18 09:18 Coreg - PO 50 mg BID [facility] Administration Chlorhexidine Gluconate 1 applic 01/14/18 22:00 01/15/18 21:40 Hibiclens For Decolonization - TP 1 applic HS [facility] Administration Clonidine 0.1 mg 01/16/18 22:00 Catapres - PO HS [facility] Clopidogrel Bisulfate 75 mg 01/14/18 10:00 01/16/18 09:17 Plavix - PO 75 mg DAILY [facility] Administration Furosemide 40 mg 01/15/18 14:00 01/16/18 13:19 Lasix Injection - IVPUSH 40 mg BID@0600,1400 [facility] Administration Heparin Sodium (Porcine) 5,000 unit 01/14/18 06:00 01/16/18 13:19 Heparin - SQ 5,000 unit TID [facility] Administration Insulin Aspart 1 vial 01/14/18 07:00 01/16/18 16:44 Novolog Vial Sliding Scale - SQ 12 units ACHS [facility] Administration Protocol Insulin Detemir 12 units 01/16/18 22:00 Levemir Vial SQ HS [facility] Methimazole 10 mg 01/14/18 10:00 01/16/18 09:18 Tapazole - PO 10 mg DAILY [facility] Administration Methylprednisolone Sodium Succinate 40 mg 01/17/18 10:00 Solu-Medrol - IVPUSH DAILY [facility] Mupirocin 1 applic 01/14/18 10:00 01/16/18 09:16 Bactroban Ointment (For Decolonization) - NS 01/19/18 09:59 1 applic BID [facility] Administration Pantoprazole Sodium 40 mg 01/14/18 10:00 01/16/18 09:16 Protonix - PO 40 mg DAILY [facility] Administration Perphenazine 8 mg 01/14/18 10:00 01/16/18 09:17 Trilafon PO 8 mg DAILY [facility] Administration Senna 1 tab 01/14/18 10:00 01/16/18 09:14 Senna - PO Not Given DAILY [facility] ASSESSMENT/PLAN: 67 yo female with PMH HTN, HLD, CAD s/p AL s/p stents, CHF, COPD, hyperthyroidism, NIDDM with retinopathy and neuropathy, frequent falls, and schizophrenia admitted with acute respiratory distress. Acute Hypercapnic Hypoxic Respiratory Distress -Pt with acute on chronic CHF, respiratory distress likely secondary to fluid overload -Dramatic improvement with diuresis -Continue Lasix 40 mg IV BID -Daily weights -ID Consult appreciated, monitor off Abx for now -Initially on bilevel ventilation, currently only requiring nasal cannula -DNR confirmed, pt is NOT DNI as per healthcare proxy -Transfer to Med/Surg BOB -Likely Pre-renal secondary to volume overload -Avoid nephrotoxic drugs -Continue to monitor BMP NIDDM -Levemir increased to 12 units -BMGs ACHs -Insulin sliding scale Schizophrenia -Wellbutrin 150 mg BID Hyperthyroid -TSH mildly elevated at 6.55 -On Methimazole 10 mg PO Daily -Repeat TSH in a few days CAD s/p AL with stent -ASA 81 mg PO Daily -Plavix 75 mg PO Daily DVT Prophylaxis -Heparin 5000 units SQ TID FEN -Fluids: None -Electrolytes: No electrolyte abnormalities, BMP in AM -Nutrition: Diabetic Sodium Controlled Diet Disposition ICU, Can be transferred to Med/Surg, awaiting bed Visit type - Emergency Visit Emergency Visit: Yes ED Registration Date: 01/14/18 Care time: The patient presented to the Emergency Department on the above date and was hospitalized for further evaluation of their emergent condition. - New Patient This patient is new to me today: No - Critical Care Critical Care patient: Yes Total Critical Care Time (in minutes): 35 Critical Care Statement: The care of this patient involved high complexity decision making to prevent further life threatening deterioration of the patient 's condition and/or to evaluate & treat vital organ system(s) failure or risk of failure.
[2018-01-16] MEDS ORDERED: INSULIN (NOVOLOG) ASPART 100 UNITS/ML 10ML VIAL SQ ONE (19:33)
[2018-01-16] MEDS: CHLORHEXIDINE GLUCONATE 4% CLEANSER FOR DECOLONIZATION TP SCH (21:55)
[2018-01-16] MEDS ORDERED: cloNIDine HCL 0.1 MG TABLET PO SCH (22:00)
[2018-01-16] MEDS ORDERED: INSULIN (LEVEMIR) 100 UNITS/ML UNITS SQ SCH (22:00)
[2018-01-17] MEDS: HEPARIN NA (PORCINE) 5,000 UNITS/ML 1ML VIAL SQ SCH ×3 (06:13→22:43)
[2018-01-17] MEDS: INSULIN SLIDING SCALE (NOVOLOG) 1 VIAL SQ SCH ×5 (06:14→21:51)
[2018-01-17 06:15] LABS: BASO % 0.2 % (0-2.0); HEMATOCRIT 30.4 % (32.4-45.2); HEMOGLOBIN 10.1 GM/dL (10.7-15.3); LYMPH % 12.3 % (8-40); MCH 28.8 pg (25.7-33.7); MCHC 33.3 g/dl (32.0-36.0); MEAN CELL VOLUME 86.3 fl (80-96); MEAN PLT VOLUME 8.7 fl (7.5-11.1); MONO % 9.5 % (3.8-10.2); PLATELET COUNT 208 K/MM3 (134-434); RBC 3.52 M/mm3 (3.60-5.2); RDW 15.4 % (11.6-15.6); WHITE BLOOD COUNT 9.1 K/mm3 (4.0-10.0)
[2018-01-17] MEDS: FUROSEMIDE 40 MG/4 ML INJECTABLE VIAL IVPUSH SCH ×2 (06:17→14:54)
[2018-01-17 06:54] LABS: ANION GAP 6 MMOL/L (8-16); BLOOD UREA NITROGEN 59 mg/dL (7-18); CALCIUM 8.2 mg/dL (8.5-10.1); CHLORIDE 103 mmol/L (98-107); CO2 28 mmol/L (21-32); CREATININE 1.1 mg/dL (0.55-1.3); GLUCOSE,RANDOM 231 mg/dL (74-106); PHOSPHOROUS 3.1 mg/dL (2.5-4.9); POTASSIUM 3.9 mmol/L (3.5-5.1); SODIUM 138 mmol/L (136-145)
[2018-01-17] MEDS ORDERED: PT OWN MED DRAWER 7, Y5N ONE (08:41)
[2018-01-17] MEDS: METHIMAZOLE 10 MG TABLET (FP) PO SCH (09:07)
[2018-01-17] MEDS: CLOPIDOGREL BISULFATE 75 MG TABLET (FP) PO SCH (09:07)
[2018-01-17] MEDS: SENNOSIDES 8.6MG TABLET (FP) PO SCH ×2 (09:07→09:10)
[2018-01-17] MEDS: PANTOPRAZOLE 40 MG TABLET (FP) PO SCH (09:07)
[2018-01-17] MEDS: ASPIRIN 81 MG CHEWABLE TABLETS PO SCH (09:07)
[2018-01-17] MEDS: CARVEDILOL 25 MG TABLET (FP) PO SCH ×2 (09:07→22:42)
[2018-01-17] MEDS: amLODIPine BESYLATE 5 MG TABLET (FP) PO SCH (09:07)
[2018-01-17] MEDS: MUPIROCIN 2% TOPICAL OINTMENT FOR DECOLONIZATION NS SCH (09:13)
[2018-01-17] MEDS ORDERED: PERPHENAZINE 4 MG TABLET PO SCH (10:00)
[2018-01-17] MEDS ORDERED: methylPREDNISolone NA SUCC 40 MG/1 ML VIAL IVPUSH SCH (10:00)
--- NOTE | 2018-01-17 11:42 | PN ---
Physical Exam: SUBJECTIVE: Patient seen and examined this AM. She is out of bed in the chair resting comfortably. She says she is feeling much better each day and her breathing is very good today. OBJECTIVE: Vital Signs Period Temp Pulse Resp BP Sys/Calero Pulse Ox Last 24 Hr 98.0 F-98.6 F 59-71 18-22 128-169/57-90 94-97 GENERAL: A&O, morbidly obese, no acute distress HEAD: Normocephalic, atraumatic. EYES: PERRL, no scleral icterus EARS, NOSE, THROAT: oropharynx clear without exudates. Moist mucous membranes. NECK: supple without lymphadenopathy LUNGS: Crackles greatly improved, mild expiratory wheezes noted HEART: Regular rate and rhythm, normal S1 and S2 without murmur ABDOMEN: Soft, nontender to palpation, normoactive bowel sounds MUSCULOSKELETAL: No bony deformities or tenderness. EXTREMITIES: 2+ pulses, warm, well-perfused. 1+ edema b/l NEUROLOGICAL: Cranial nerves II-XII grossly intact. Speech slow PSYCHIATRIC: Cooperative. Good eye contact. Appropriate mood and affect. Laboratory Results - last 24 hr 01/16/18 01/16/18 01/16/18 11:34 16:14 19:23 WBC RBC Hgb Hct MCV MCH MCHC RDW Plt Count MPV Absolute Neuts (auto) Neutrophils % Lymphocytes % Monocytes % Eosinophils % Basophils % Nucleated RBC % Sodium Potassium Chloride Carbon Dioxide Anion Gap BUN Creatinine Creat Clearance w eGFR POC Glucometer [phone] > 400 > 400 Random Glucose Calcium Phosphorus Magnesium 01/16/18 01/17/18 01/17/18 21:53 05:30 05:30 WBC 9.1 RBC 3.52 L Hgb 10.1 L Hct 30.4 L MCV 86.3 MCH 28.8 MCHC 33.3 RDW 15.4 Plt Count 208 MPV 8.7 Absolute Neuts (auto) 7.1 Neutrophils % 78.0 Lymphocytes % 12.3 D Monocytes % 9.5 D Eosinophils % 0.0 Basophils % 0.2 Nucleated RBC % 0 Sodium 138 Potassium 3.9 Chloride 103 Carbon Dioxide 28 Anion Gap 6 L BUN 59 H Creatinine 1.1 Creat Clearance w eGFR 49.39 POC Glucometer [phone] Random Glucose 231 H Calcium 8.2 L Phosphorus 3.1 Magnesium 2.0 01/17/18 05:53 WBC RBC Hgb Hct MCV MCH MCHC RDW Plt Count MPV Absolute Neuts (auto) Neutrophils % Lymphocytes % Monocytes % Eosinophils % Basophils % Nucleated RBC % Sodium Potassium Chloride Carbon Dioxide Anion Gap BUN Creatinine Creat Clearance w eGFR POC Glucometer [phone] Random Glucose Calcium Phosphorus Magnesium Active Medications Generic Name Dose Route Start Last Admin Trade Name Freq PRN Reason Stop Dose Admin Acetaminophen 650 mg 01/15/18 23:44 Tylenol - PO Q4H PRN PAIN Albuterol Sulfate 1 amp 01/15/18 23:45 Ventolin 0.083% Nebulizer Soln - NEB Q4H PRN SHORT OF BREATH/WHEEZING Amlodipine Besylate 5 mg 01/14/18 10:00 01/17/18 09:07 Norvasc - PO 5 mg DAILY [facility] Administration Aspirin 81 mg 01/14/18 10:00 01/17/18 09:07 Asa - PO 81 mg DAILY [facility] Administration Bupropion HCl 150 mg 01/14/18 10:00 01/17/18 09:07 Wellbutrin Xl - PO 150 mg BID [facility] Administration Carvedilol 50 mg 01/14/18 10:00 01/17/18 09:07 Coreg - PO 50 mg BID [facility] Administration Chlorhexidine Gluconate 1 applic 01/14/18 22:00 01/16/18 21:55 Hibiclens For Decolonization - TP 1 applic HS [facility] Administration Clonidine 0.1 mg 01/16/18 22:00 01/16/18 21:54 Catapres - PO 0.1 mg HS [facility] Administration Clopidogrel Bisulfate 75 mg 01/14/18 10:00 01/17/18 09:07 Plavix - PO 75 mg DAILY [facility] Administration Furosemide 40 mg 01/15/18 14:00 01/17/18 06:17 Lasix Injection - IVPUSH 40 mg BID@0600,1400 [facility] Administration Heparin Sodium (Porcine) 5,000 unit 01/14/18 06:00 01/17/18 06:13 Heparin - SQ 5,000 unit TID [facility] Administration Insulin Aspart 1 vial 01/14/18 07:00 01/17/18 06:14 Novolog Vial Sliding Scale - SQ 2 units ACHS [facility] Administration Protocol Insulin Detemir 12 units 01/16/18 22:00 01/16/18 21:57 Levemir Vial SQ 12 units HS [facility] Administration Methimazole 10 mg 01/14/18 10:00 01/17/18 09:07 Tapazole - PO 10 mg DAILY [facility] Administration Methylprednisolone Sodium Succinate 40 mg 01/17/18 10:00 01/17/18 09:06 Solu-Medrol - IVPUSH 40 mg DAILY [facility] Administration Mupirocin 1 applic 01/14/18 10:00 01/17/18 09:13 Bactroban Ointment (For Decolonization) - NS 01/19/18 09:59 1 applic BID [facility] Administration Pantoprazole Sodium 40 mg 01/14/18 10:00 01/17/18 09:07 Protonix - PO 40 mg DAILY [facility] Administration Perphenazine 8 mg 01/17/18 10:00 01/17/18 09:07 Trilafon PO 8 mg DAILY [facility] Administration Senna 1 tab 01/14/18 10:00 01/17/18 09:10 Senna - PO Not Given DAILY [facility] ASSESSMENT/PLAN: 67 yo female with PMH HTN, HLD, CAD s/p OR s/p stents, CHF, COPD, hyperthyroidism, NIDDM with retinopathy and neuropathy, frequent falls, and schizophrenia admitted with acute respiratory distress. Acute Hypercapnic Hypoxic Respiratory Distress -Pt with acute on chronic CHF, respiratory distress likely secondary to fluid overload -Dramatic improvement with diuresis -Continue Lasix 40 mg IV BID -Daily weights -ID Consult appreciated, monitor off Abx for now -Initially on bilevel ventilation, currently only requiring nasal cannula -Solumedrol 40 mg IV Daily -DNR confirmed, pt is NOT DNI as per healthcare proxy -Transfer to Med/Surg HTN -Home Clonidine 0.1 mg HS resumed -Coreg 50 mg PO BID -Norvasc 5 mg PO Daily BOB -Likely Pre-renal secondary to volume overload -Avoid nephrotoxic drugs -Continue to monitor BMP NIDDM -Levemir increased to 12 units -BMGs ACHs -Insulin sliding scale Schizophrenia -Wellbutrin 150 mg BID Hyperthyroid -TSH mildly elevated at 6.55 -On Methimazole 10 mg PO Daily -Repeat TSH in am CAD s/p OR with stent -ASA 81 mg PO Daily -Plavix 75 mg PO Daily DVT Prophylaxis -Heparin 5000 units SQ TID FEN -Fluids: None -Electrolytes: No electrolyte abnormalities, BMP in AM -Nutrition: Diabetic Sodium Controlled Diet Disposition ICU, Can be transferred to Med/Surg, awaiting bed Visit type - Emergency Visit Emergency Visit: Yes ED Registration Date: 01/14/18 Care time: The patient presented to the Emergency Department on the above date and was hospitalized for further evaluation of their emergent condition. - New Patient This patient is new to me today: No - Critical Care Critical Care patient: Yes Total Critical Care Time (in minutes): 38 Critical Care Statement: The care of this patient involved high complexity decision making to prevent further life threatening deterioration of the patient 's condition and/or to evaluate & treat vital organ system(s) failure or risk of failure.
[2018-01-17] MEDS ORDERED: ACETAMINOPHEN 325 MG TABLET (FP) PO PRN (13:16)
[2018-01-17] MEDS ORDERED: ALBUTEROL SO4 0.083% IH SOL 2.5 MG/3 ML VIAL.NEB. NEB PRN (13:16)
--- NOTE | 2018-01-17 14:29 | PN ---
Teaching Attending Note Name of Resident: Luis Corrigan ATTENDING PHYSICIAN STATEMENT I saw and evaluated the patient. I reviewed the resident's note and discussed the case with the resident. I agree with the resident's findings and plan as documented. SUBJECTIVE: Patient seen and examined in the ICU. Awake and alert. Reports breathing feels better. No CP. Less SOB. Intake & Output 01/14/18 01/15/18 01/16/18 01/17/18 23:59 23:59 23:59 23:59 Intake Total 1540 1240 360 120 Output Total 3800 2250 500 600 Balance -2260 -1010 -140 -480 Weight 234 lb 4 oz 229 lb 5 oz 229 lb Last Vital Signs Temp Pulse Resp BP Pulse Ox 98.2 F 66 18 167/54 L 94 L 01/17/18 14:00 01/17/18 14:00 01/17/18 14:00 01/17/18 14:00 01/17/18 09:00 Active Medications Acetaminophen (Tylenol -) 650 mg PO Q4H PRN PRN Reason: PAIN Albuterol Sulfate (Ventolin 0.083% Nebulizer Soln -) 1 amp NEB Q4H PRN PRN Reason: SHORT OF BREATH/WHEEZING Amlodipine Besylate (Norvasc -) 5 mg PO DAILY [facility] Aspirin (Asa -) 81 mg PO DAILY [facility] Bupropion HCl (Wellbutrin Xl -) 150 mg PO BID [facility] Carvedilol (Coreg -) 50 mg PO BID [facility] Chlorhexidine Gluconate (Hibiclens For Decolonization -) 1 applic TP HS [facility] Clonidine (Catapres -) 0.1 mg PO HS [facility] Clopidogrel Bisulfate (Plavix -) 75 mg PO DAILY [facility] Furosemide (Lasix Injection -) 40 mg IVPUSH BID@0600,1400 [facility] Heparin Sodium (Porcine) (Heparin -) 5,000 unit SQ TID [facility] Insulin Aspart (Novolog Vial Sliding Scale -) 1 vial SQ ACHS [facility]; Protocol Insulin Detemir (Levemir Vial) 12 units SQ HS [facility] Methimazole (Tapazole -) 10 mg PO DAILY [facility] Methylprednisolone Sodium Succinate (Solu-Medrol -) 40 mg IVPUSH DAILY [facility] Mupirocin (Bactroban Ointment (For Decolonization) -) 1 applic NS BID [facility] Stop: 01/19/18 09:59 Pantoprazole Sodium (Protonix -) 40 mg PO DAILY [facility] Perphenazine (Trilafon) 8 mg PO DAILY [facility] Senna (Senna -) 1 tab PO DAILY [facility] Gen: Awake and alert, NAD HEENT: + jvd, trach midline, PERRL PULM: Improving bibasilar rhonchi, no wheeze, dry cough CV: S1S2 ABD: soft, NT, ND EXT: 2+ dependent edema Neuro: intact, non focal Laboratory Results - last 24 hr 01/16/18 01/16/18 01/16/18 11:34 16:14 19:23 WBC RBC Hgb Hct MCV MCH MCHC RDW Plt Count MPV Absolute Neuts (auto) Neutrophils % Lymphocytes % Monocytes % Eosinophils % Basophils % Nucleated RBC % Sodium Potassium Chloride Carbon Dioxide Anion Gap BUN Creatinine Creat Clearance w eGFR POC Glucometer 384.75724 > 400 > 400 Random Glucose Calcium Phosphorus Magnesium 01/16/18 01/17/18 01/17/18 21:53 05:30 05:30 WBC 9.1 RBC 3.52 L Hgb 10.1 L Hct 30.4 L MCV 86.3 MCH 28.8 MCHC 33.3 RDW 15.4 Plt Count 208 MPV 8.7 Absolute Neuts (auto) 7.1 Neutrophils % 78.0 Lymphocytes % 12.3 D Monocytes % 9.5 D Eosinophils % 0.0 Basophils % 0.2 Nucleated RBC % 0 Sodium 138 Potassium 3.9 Chloride 103 Carbon Dioxide 28 Anion Gap 6 L BUN 59 H Creatinine 1.1 Creat Clearance w eGFR 49.39 POC Glucometer [phone] Random Glucose 231 H Calcium 8.2 L Phosphorus 3.1 Magnesium 2.0 01/17/18 01/17/18 05:53 12:13 WBC RBC Hgb Hct MCV MCH MCHC RDW Plt Count MPV Absolute Neuts (auto) Neutrophils % Lymphocytes % Monocytes % Eosinophils % Basophils % Nucleated RBC % Sodium Potassium Chloride Carbon Dioxide Anion Gap BUN Creatinine Creat Clearance w eGFR POC Glucometer [phone] Random Glucose Calcium Phosphorus Magnesium IMP: Acute CHF exacerbation Hypercapneic resp failure Likely OSAS PLAN: Lasix O2 as needed Will need formal OSAS workup after D/C Daily weight Glycemic control Floor Dr Velazquez
--- NOTE | 2018-01-17 17:06 | PN ---
Teaching Attending Note Name of Resident: Lucio Mahmood ATTENDING PHYSICIAN STATEMENT I saw and evaluated the patient. I reviewed the resident's note and discussed the case with the resident. I agree with the resident's findings and plan as documented with exceptions below. SUBJECTIVE: Patient seen and examined. Breathing improved, no new complaints. OBJECTIVE: Vital Signs Period Temp Pulse Resp BP Sys/Calero Pulse Ox Last 24 Hr 98.0 F-98.6 F 59-66 18-20 152-169/54-90 94-97 Intake & Output 01/14/18 01/15/18 01/16/18 01/17/18 23:59 23:59 23:59 23:59 Intake Total 1540 1240 360 120 Output Total 3800 2250 500 1200 Balance -2260 -1010 -140 -1080 Weight 234 lb 4 oz 229 lb 5 oz 229 lb general: sitting in chair in no acute distress Chest: distant breath sounds, few basilar rales, no wheezing Abdomen:soft, obese, NT Extremities: 1+ pitting pedal edema Active Medications Acetaminophen (Tylenol -) 650 mg PO Q4H PRN PRN Reason: PAIN Albuterol Sulfate (Ventolin 0.083% Nebulizer Soln -) 1 amp NEB Q4H PRN PRN Reason: SHORT OF BREATH/WHEEZING Amlodipine Besylate (Norvasc -) 5 mg PO DAILY [facility] Aspirin (Asa -) 81 mg PO DAILY JOH[facility] Bupropion HCl (Wellbutrin Xl -) 150 mg PO BID JOHAN Carvedilol (Coreg -) 50 mg PO BID [facility] Chlorhexidine Gluconate (Hibiclens For Decolonization -) 1 applic TP HS J[facility] Clonidine (Catapres -) 0.1 mg PO HS [facility] Clopidogrel Bisulfate (Plavix -) 75 mg PO DAILY [facility] Furosemide (Lasix Injection -) 40 mg IVPUSH BID@0600,1400 [facility] Last Admin: 01/17/18 14:54 Dose: 40 mg Heparin Sodium (Porcine) (Heparin -) 5,000 unit SQ TID [facility] Last Admin: 01/17/18 14:54 Dose: 5,000 unit Insulin Aspart (Novolog Vial Sliding Scale -) 1 vial SQ ACHS JOHAN; Protocol Insulin Detemir (Levemir Vial) 12 units SQ HS [facility] Methimazole (Tapazole -) 10 mg PO DAILY [facility] Methylprednisolone Sodium Succinate (Solu-Medrol -) 40 mg IVPUSH DAILY [facility] Mupirocin (Bactroban Ointment (For Decolonization) -) 1 applic NS BID [facility] Stop: 01/19/18 09:59 Pantoprazole Sodium (Protonix -) 40 mg PO DAILY [facility] Perphenazine (Trilafon) 8 mg PO DAILY [facility] Senna (Senna -) 1 tab PO DAILY [facility] Laboratory Results - last 24 hr 01/16/18 01/16/18 01/16/18 16:14 19:23 21:53 WBC RBC Hgb Hct MCV MCH MCHC RDW Plt Count MPV Absolute Neuts (auto) Neutrophils % Lymphocytes % Monocytes % Eosinophils % Basophils % Nucleated RBC % Sodium Potassium Chloride Carbon Dioxide Anion Gap BUN Creatinine Creat Clearance w eGFR POC Glucometer > 400 > [phone] Random Glucose Calcium Phosphorus Magnesium 01/17/18 01/17/18 01/17/18 05:30 05:30 05:53 WBC 9.1 RBC 3.52 L Hgb 10.1 L Hct 30.4 L MCV 86.3 MCH 28.8 MCHC 33.3 RDW 15.4 Plt Count 208 MPV 8.7 Absolute Neuts (auto) 7.1 Neutrophils % 78.0 Lymphocytes % 12.3 D Monocytes % 9.5 D Eosinophils % 0.0 Basophils % 0.2 Nucleated RBC % 0 Sodium 138 Potassium 3.9 Chloride 103 Carbon Dioxide 28 Anion Gap 6 L BUN 59 H Creatinine 1.1 Creat Clearance w eGFR 49.39 POC Glucometer [phone] Random Glucose 231 H Calcium 8.2 L Phosphorus 3.1 Magnesium 2.0 01/17/18 12:13 WBC RBC Hgb Hct MCV MCH MCHC RDW Plt Count MPV Absolute Neuts (auto) Neutrophils % Lymphocytes % Monocytes % Eosinophils % Basophils % Nucleated RBC % Sodium Potassium Chloride Carbon Dioxide Anion Gap BUN Creatinine Creat Clearance w eGFR POC Glucometer [phone] Random Glucose Calcium Phosphorus Magnesium Microbiology 01/14/18 03:58 Urine - Urine - Catheterized Urine Culture - Final [place] Species 01/14/18 03:00 Blood - Peripheral Venous Blood Culture - Preliminary NO GROWTH OBTAINED AFTER 72 HOURS, INCUBATION TO CONTINUE FOR 2 DAYS. 01/14/18 03:00 Blood - Peripheral Venous Blood Culture - Preliminary NO GROWTH OBTAINED AFTER 72 HOURS, INCUBATION TO CONTINUE FOR 2 DAYS. 01/14/18 10:50 Urine For Antigen Detection Legionella Antigen - Final 01/14/18 10:50 Urine For Antigen Detection Streptococcus pneumoniae Antigen (M - Final ASSESSMENT AND PLAN: 67yo F wtih PMH HTN, dyslipidemia, DM, CAD s/p stent, schizophrenia, COPD, hyperthyroid from [facility] due to acute respiratory distress -Acute diastolic heart failure exacerbation -Acute hypercapneic/hypoxic respiratory failure -Hypertensive urgency -BOB, likely from CHF -SIRS, no clinical evidence of infection, off abx -IDDM -CAD s/p PCI - Hyperthyroidism -Schizophrenia -Asymptomatic cedecia species bacteruria Plan: lasix 40 mg IV BID, transition to PO in AM Rapid steroid taper over next 2-3 days. Check pre and post ambulatory oxygen needs. Pulmonary/ID input noted. Monitor off abx No urinary symptoms, hold off on treatment. Resume leveir 20 units hs, ISS, diabetic diet. Continue clonidine/coreg/amlodipine. Continue asa/plavix/imdur/statin TFTs in 1-2 weeks, continue methimazole DNR, no DNI PT eval noted. Dispo d/c assisted living in 24 hours if continues to improve. Plan discussed with patient in detail, all questions answered.
--- NOTE | 2018-01-17 17:35 | PN ---
Physical Exam: SUBJECTIVE: Patient seen and examined at bedside. Mentation back to baseline, fully oriented, no complaints of pain, SOB, or otherwise. OBJECTIVE: Vital Signs Period Temp Pulse Resp BP Sys/Calero Pulse Ox Last 24 Hr 98.0 F-98.6 F 59-66 18-20 152-169/54-90 94-97 GENERAL: A&Ox3, NAD HEAD: NC/AT EYES: PERRLA, EOMI ENT: Ears normal, nares patent, oropharynx clear without exudates, moist mucous membranes. NECK: Trachea midline, full range of motion, supple. 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 SKIN: Warm, dry, normal turgor, no rashes or lesions noted Laboratory Results - last 24 hr 01/16/18 01/16/18 01/16/18 16:14 19:23 21:53 WBC RBC Hgb Hct MCV MCH MCHC RDW Plt Count MPV Absolute Neuts (auto) Neutrophils % Lymphocytes % Monocytes % Eosinophils % Basophils % Nucleated RBC % Sodium Potassium Chloride Carbon Dioxide Anion Gap BUN Creatinine Creat Clearance w eGFR POC Glucometer > 400 > [phone] Random Glucose Calcium Phosphorus Magnesium 01/17/18 01/17/18 01/17/18 05:30 05:30 05:53 WBC 9.1 RBC 3.52 L Hgb 10.1 L Hct 30.4 L MCV 86.3 MCH 28.8 MCHC 33.3 RDW 15.4 Plt Count 208 MPV 8.7 Absolute Neuts (auto) 7.1 Neutrophils % 78.0 Lymphocytes % 12.3 D Monocytes % 9.5 D Eosinophils % 0.0 Basophils % 0.2 Nucleated RBC % 0 Sodium 138 Potassium 3.9 Chloride 103 Carbon Dioxide 28 Anion Gap 6 L BUN 59 H Creatinine 1.1 Creat Clearance w eGFR 49.39 POC Glucometer 222.36253 Random Glucose 231 H Calcium 8.2 L Phosphorus 3.1 Magnesium 2.0 01/17/18 12:13 WBC RBC Hgb Hct MCV MCH MCHC RDW Plt Count MPV Absolute Neuts (auto) Neutrophils % Lymphocytes % Monocytes % Eosinophils % Basophils % Nucleated RBC % Sodium Potassium Chloride Carbon Dioxide Anion Gap BUN Creatinine Creat Clearance w eGFR POC Glucometer [phone] Random Glucose Calcium Phosphorus Magnesium Active Medications Generic Name Dose Route Start Last Admin Trade Name Freq PRN Reason Stop Dose Admin Acetaminophen 650 mg 01/17/18 13:16 Tylenol - PO Q4H PRN PAIN Albuterol Sulfate 1 amp 01/17/18 13:16 Ventolin 0.083% Nebulizer Soln - NEB Q4H PRN SHORT OF BREATH/WHEEZING Amlodipine Besylate 5 mg 01/18/18 10:00 Norvasc - PO DAILY [facility] Aspirin 81 mg 01/18/18 10:00 Asa - PO DAILY [facility] Bupropion HCl 150 mg 01/17/18 22:00 Wellbutrin Xl - PO BID [facility] Carvedilol 50 mg 01/17/18 22:00 Coreg - PO BID [facility] Chlorhexidine Gluconate 1 applic 01/17/18 22:00 Hibiclens For Decolonization - TP HS [facility] Clonidine 0.1 mg 01/17/18 22:00 Catapres - PO HS [facility] Clopidogrel Bisulfate 75 mg 01/18/18 10:00 Plavix - PO DAILY [facility] Furosemide 40 mg 01/17/18 14:00 01/17/18 14:54 Lasix Injection - IVPUSH 40 mg BID@0600,1400 [facility] Administration Heparin Sodium (Porcine) 5,000 unit 01/17/18 14:00 01/17/18 14:54 Heparin - SQ 5,000 unit TID [facility] Administration Insulin Aspart 1 vial 01/17/18 16:30 Novolog Vial Sliding Scale - SQ ACHS [facility] Protocol Insulin Detemir 20 units 01/17/18 22:00 Levemir Vial SQ HS [facility] Methimazole 10 mg 01/18/18 10:00 Tapazole - PO DAILY [facility] Mupirocin 1 applic 01/17/18 22:00 Bactroban Ointment (For Decolonization) - NS 01/19/18 09:59 BID [facility] Pantoprazole Sodium 40 mg 01/18/18 10:00 Protonix - PO DAILY [facility] Perphenazine 8 mg 01/18/18 10:00 Trilafon PO DAILY [facility] Prednisone 30 mg 01/18/18 10:00 Deltasone - PO DAILY [facility] Ramipril 10 mg 01/17/18 17:30 Altace - PO DAILY [facility] Senna 1 tab 01/18/18 10:00 Senna - PO DAILY JOHAN ASSESSMENT/PLAN: 67 y/o F w/ PMHx HTN, HLD, CAD s/p GA s/p stents, CHF, COPD, hyperthyroidism, NIDDM with retinopathy and neuropathy, frequent falls, and schizophrenia brought in by EMS in severe respiratory distress 2/2 CHF exacerbation, AMS, and hypertensive emergency. Markedly improved on Lasix. #neurologic -AMS, toxic-metabolic encephalopathy resolved with treatment of underlying condition #cardiac -BP stabilized on nitropaste in ED -HTN: home clonidine, amlodipine -cont plavix/coreg/imdur/asa/statin -lasix 40mg BID IV #pulmonary -acute hypoxic/hypercapnic respiratory failure resolved -solumedrol 40 IV -off ABx as sepsis/PNA ruled out -NINI screening #ID -off ABx as sepsis/PNA ruled out #Renal -BUN/Cr 58/1.1 -avoid nephrotoxic agents -monitor #GI -no issues at this time #endocrine -DM: SSI, levemir, BGM -hyperthyroid: cont methimazole and repeat TFTs on floors #psych -perphenazine -bupropion #FEN -no IVF at this time -monitor BMP -diabetic/sodium controlled diet #PPx -DVT: heparin subq -GI: not indicated at this time #code -DNR/DNI #Dispo -transfer to med/surg Visit type - Emergency Visit Emergency Visit: No - New Patient This patient is new to me today: No - Critical Care Critical Care patient: Yes Total Critical Care Time (in minutes): 40 Critical Care Statement: The care of this patient involved high complexity decision making to prevent further life threatening deterioration of the patient 's condition and/or to evaluate & treat vital organ system(s) failure or risk of failure.
[2018-01-17] MEDS: RAMIPRIL 5 MG CAPSULE (FP) PO SCH ×2 (18:22→18:24)
[2018-01-17] MEDS ORDERED: amLODIPine BESYLATE 5 MG TABLET (FP) PO ONE (19:05)
[2018-01-17] MEDS ORDERED: CHLORHEXIDINE GLUCONATE 4% CLEANSER FOR DECOLONIZATION TP SCH (22:00)
[2018-01-17] MEDS ORDERED: MUPIROCIN 2% TOPICAL OINTMENT FOR DECOLONIZATION NS SCH (22:00)
[2018-01-17] MEDS ORDERED: INSULIN (LEVEMIR) 100 UNITS/ML UNITS SQ SCH (22:00)
[2018-01-17] MEDS: cloNIDine HCL 0.1 MG TABLET PO SCH (22:42)
[2018-01-17] MEDS: INSULIN (LEVEMIR) 100 UNITS/ML UNITS SQ SCH (22:42)
[2018-01-18] MEDS: FUROSEMIDE 40 MG/4 ML INJECTABLE VIAL IVPUSH SCH ×2 (05:55→14:58)
[2018-01-18] MEDS: HEPARIN NA (PORCINE) 5,000 UNITS/ML 1ML VIAL SQ SCH ×3 (05:55→22:51)
[2018-01-18] MEDS: INSULIN SLIDING SCALE (NOVOLOG) 1 VIAL SQ SCH ×4 (05:59→23:08)
[2018-01-18 07:37] LABS: BASO % 0.1 % (0-2.0); EOS % 0.3 % (0-4.5); HEMATOCRIT 30.3 % (32.4-45.2); HEMOGLOBIN 10.1 GM/dL (10.7-15.3); LYMPH % 21.8 % (8-40); MCH 28.4 pg (25.7-33.7); MCHC 33.2 g/dl (32.0-36.0); MEAN CELL VOLUME 85.4 fl (80-96); MEAN PLT VOLUME 8.4 fl (7.5-11.1); MONO % 11.3 % (3.8-10.2); NEUT % 66.5 % (42.8-82.8); PLATELET COUNT 199 K/MM3 (134-434); RBC 3.54 M/mm3 (3.60-5.2); RDW 15.4 % (11.6-15.6); WHITE BLOOD COUNT 7.5 K/mm3 (4.0-10.0)
[2018-01-18 08:10] LABS: ANION GAP 5 MMOL/L (8-16); BLOOD UREA NITROGEN 60 mg/dL (7-18); CALCIUM 8.1 mg/dL (8.5-10.1); CHLORIDE 100 mmol/L (98-107); CO2 28 mmol/L (21-32); GLUCOSE,RANDOM 257 mg/dL (74-106); MAGNESIUM 2.1 mg/dL (1.8-2.4); PHOSPHOROUS 2.9 mg/dL (2.5-4.9); POTASSIUM 3.9 mmol/L (3.5-5.1); SODIUM 133 mmol/L (136-145)
[2018-01-18] MEDS ORDERED: PT OWN MED DRAWER 7, Y5N ONE (09:55)
[2018-01-18] MEDS: ASPIRIN 81 MG CHEWABLE TABLETS PO SCH (09:56)
[2018-01-18] MEDS: amLODIPine BESYLATE 10 MG TABLET (FP) PO SCH (09:56)
[2018-01-18] MEDS: CLOPIDOGREL BISULFATE 75 MG TABLET (FP) PO SCH (09:56)
[2018-01-18] MEDS: RAMIPRIL 5 MG CAPSULE (FP) PO SCH (09:56)
[2018-01-18] MEDS: CARVEDILOL 25 MG TABLET (FP) PO SCH ×2 (09:56→22:50)
[2018-01-18] MEDS: METHIMAZOLE 10 MG TABLET (FP) PO SCH (09:57)
[2018-01-18] MEDS: PANTOPRAZOLE 40 MG TABLET (FP) PO SCH (09:57)
[2018-01-18] MEDS: SENNOSIDES 8.6MG TABLET (FP) PO SCH (09:57)
[2018-01-18] MEDS: PERPHENAZINE 4 MG TABLET PO SCH (09:57)
[2018-01-18] MEDS ORDERED: amLODIPine BESYLATE 5 MG TABLET (FP) PO SCH (10:00)
[2018-01-18] MEDS ORDERED: predniSONE 10 MG TABLET (UD) PO SCH (10:00)
[2018-01-18] MEDS ORDERED: methylPREDNISolone NA SUCC 40 MG/1 ML VIAL IVPUSH SCH (10:00)
[2018-01-18 10:01] LABS: ANION GAP 6 MMOL/L (8-16); BLOOD UREA NITROGEN 58 mg/dL (7-18); CALCIUM 8.3 mg/dL (8.5-10.1); CHLORIDE 100 mmol/L (98-107); CO2 29 mmol/L (21-32); GLUCOSE,RANDOM 198 mg/dL (74-106); MAGNESIUM 2.1 mg/dL (1.8-2.4); PHOSPHOROUS 2.8 mg/dL (2.5-4.9); POTASSIUM 3.9 mmol/L (3.5-5.1); SODIUM 135 mmol/L (136-145)
[2018-01-18] MEDS ORDERED: FUROSEMIDE 40 MG TABLET (FP) PO SCH (14:00)
--- NOTE | 2018-01-18 15:28 | PN ---
Teaching Attending Note Name of Resident: Lucio Mahmood ATTENDING PHYSICIAN STATEMENT I saw and evaluated the patient. I reviewed the resident's note and discussed the case with the resident. I agree with the resident's findings and plan as documented with exceptions below. SUBJECTIVE: Patient seen and examined. breathing improved, no new complaints, just walked with PT. OBJECTIVE: Vital Signs Period Temp Pulse Resp BP Sys/Calero Pulse Ox Last 24 Hr 98.1 F-98.5 F 56-79 18-20 143-182/56-75 96-97 Intake & Output 01/15/18 01/16/18 01/17/18 01/18/18 23:59 23:59 23:59 23:59 Intake Total 1240 360 120 Output Total 2250 500 2100 Balance -1010 -140 -1980 Weight 229 lb 5 oz 229 lb 240 lb 4.8 oz General: sitting in chair in no acute distress Chest: CTAB, no rales or wheezing Abdomen:soft, obese, NT Extremities: 2+ pedal edema Active Medications Acetaminophen (Tylenol -) 650 mg PO Q4H PRN PRN Reason: PAIN Albuterol Sulfate (Ventolin 0.083% Nebulizer Soln -) 1 amp NEB Q4H PRN PRN Reason: SHORT OF BREATH/WHEEZING Amlodipine Besylate (Norvasc -) 10 mg PO DAILY [facility] Last Admin: 01/18/18 09:56 Dose: 10 mg Aspirin (Asa -) 81 mg PO DAILY [facility] Last Admin: 01/18/18 09:56 Dose: 81 mg Bupropion HCl (Wellbutrin Xl -) 150 mg PO BID [facility] Last Admin: 01/18/18 09:58 Dose: 150 mg Carvedilol (Coreg -) 50 mg PO BID [facility] Last Admin: 01/18/18 09:56 Dose: 50 mg Clonidine (Catapres -) 0.1 mg PO HS [facility] Last Admin: 01/17/18 22:42 Dose: 0.1 mg Clopidogrel Bisulfate (Plavix -) 75 mg PO DAILY [facility] Last Admin: 01/18/18 09:56 Dose: 75 mg Furosemide (Lasix Injection -) 40 mg IVPUSH BID@0600,1400 [facility] Last Admin: 01/18/18 14:58 Dose: 40 mg Heparin Sodium (Porcine) (Heparin -) 5,000 unit SQ TID [facility] Last Admin: 01/18/18 14:58 Dose: 5,000 unit Insulin Aspart (Novolog Vial Sliding Scale -) 1 vial SQ ACHS [facility]; Protocol Last Admin: 01/18/18 12:42 Dose: 4 unit Insulin Detemir (Levemir Vial) 20 units SQ HS [facility] Last Admin: 01/17/18 22:42 Dose: 20 units Methimazole (Tapazole -) 10 mg PO DAILY [facility] Last Admin: 01/18/18 09:57 Dose: 10 mg Pantoprazole Sodium (Protonix -) 40 mg PO DAILY [facility] Last Admin: 01/18/18 09:57 Dose: 40 mg Perphenazine (Trilafon) 8 mg PO DAILY [facility] Last Admin: 01/18/18 09:57 Dose: 8 mg Prednisone (Deltasone -) 30 mg PO DAILY [facility] Last Admin: 01/18/18 09:57 Dose: 30 mg Ramipril (Altace -) 10 mg PO DAILY [facility] Last Admin: 01/18/18 09:56 Dose: 10 mg Senna (Senna -) 1 tab PO DAILY [facility] Last Admin: 01/18/18 09:57 Dose: Not Given Laboratory Results - last 24 hr 01/17/18 01/17/18 01/17/18 18:16 19:05 21:34 WBC RBC Hgb Hct MCV MCH MCHC RDW Plt Count MPV Absolute Neuts (auto) Neutrophils % Lymphocytes % Monocytes % Eosinophils % Basophils % Nucleated RBC % Sodium Potassium Chloride Carbon Dioxide Anion Gap BUN Creatinine Creat Clearance w eGFR POC Glucometer > 400 492 Random Glucose 538 H* Calcium Phosphorus Magnesium [facility] 01/17/18 01/17/18 01/18/18 22:37 23:42 05:49 WBC RBC Hgb Hct MCV MCH MCHC RDW Plt Count MPV Absolute Neuts (auto) Neutrophils % Lymphocytes % Monocytes % Eosinophils % Basophils % Nucleated RBC % Sodium Potassium Chloride Carbon Dioxide Anion Gap BUN Creatinine Creat Clearance w eGFR POC Glucometer 448 392 282 Random Glucose Calcium Phosphorus Magnesium TSH 01/18/18 01/18/18 01/18/18 06:30 06:30 09:15 WBC 7.5 RBC 3.54 L Hgb 10.1 L Hct 30.3 L MCV 85.4 MCH 28.4 MCHC 33.2 RDW 15.4 Plt Count 199 MPV 8.4 Absolute Neuts (auto) 5.0 Neutrophils % 66.5 Lymphocytes % 21.8 D Monocytes % 11.3 H Eosinophils % 0.3 D Basophils % 0.1 Nucleated RBC % 0 Sodium 133 L 135 L Potassium 3.9 3.9 Chloride 100 100 Carbon Dioxide 28 29 Anion Gap 5 L 6 L BUN 60 H 58 H Creatinine 1.0 1.0 Creat Clearance w eGFR 55.14 55.14 POC Glucometer Random Glucose 257 H 198 H Calcium 8.1 L 8.3 L Phosphorus 2.9 2.8 Magnesium 2.1 2.1 TSH 7.85 H 01/18/18 12:41 WBC RBC Hgb Hct MCV MCH MCHC RDW Plt Count MPV Absolute Neuts (auto) Neutrophils % Lymphocytes % Monocytes % Eosinophils % Basophils % Nucleated RBC % Sodium Potassium Chloride Carbon Dioxide Anion Gap BUN Creatinine Creat Clearance w eGFR POC Glucometer 288 Random Glucose Calcium Phosphorus Magnesium TSH Microbiology 01/14/18 03:00 Blood - Peripheral Venous Blood Culture - Preliminary NO GROWTH OBTAINED AFTER 96 HOURS, INCUBATION TO CONTINUE FOR 1 DAYS. 01/14/18 03:00 Blood - Peripheral Venous Blood Culture - Preliminary NO GROWTH OBTAINED AFTER 96 HOURS, INCUBATION TO CONTINUE FOR 1 DAYS. 01/14/18 03:58 Urine - Urine - Catheterized Urine Culture - Final [place] Species 01/14/18 10:50 Urine For Antigen Detection Legionella Antigen - Final 01/14/18 10:50 Urine For Antigen Detection Streptococcus pneumoniae Antigen (M - Final CXR 01/14 reviewed ASSESSMENT AND PLAN: 67yo F wtih PMH HTN, dyslipidemia, DM, CAD s/p stent, schizophrenia, COPD, hyperthyroid from [facility] assisted [facility] due to acute respiratory distress -Acute diastolic heart failure exacerbation -Acute hypercapneic/hypoxic respiratory failure -Hypertensive urgency -BOB, likely from CHF -SIRS, no clinical evidence of infection, off abx -IDDM with hyperglycemia -CAD s/p PCI - Hyperthyroidism -Schizophrenia -Asymptomatic cedecia species bacteruria Plan: lasix 40 mg IV BID, transition to 40 mg PO BID on dc d/c prednisone. Check pre and post ambulatory oxygen needs. Pulmonary/ID input noted. Monitor off abx No urinary symptoms, hold off on treatment. Resumed levemir 20 units hs, ISS, diabetic diet. Continue clonidine/coreg/amlodipine. Continue asa/plavix/imdur/statin TFTs in 1-2 weeks, continue methimazole DNR, no DNI No home oxygen needs noted. PT eval noted. Dispo d/c assisted living tomorrow if no new concerns. Plan discussed with patient in detail, all questions answered.
--- NOTE | 2018-01-18 15:47 | PN ---
Progress Note, Physician History of Present Illness: pulmonary alert,oob-chair,comfortable,-resp distress - Current Medication List Current Medications: Active Medications Acetaminophen (Tylenol -) 650 mg PO Q4H PRN PRN Reason: PAIN Albuterol Sulfate (Ventolin 0.083% Nebulizer Soln -) 1 amp NEB Q4H PRN PRN Reason: SHORT OF BREATH/WHEEZING Amlodipine Besylate (Norvasc -) 10 mg PO DAILY [facility] Last Admin: 01/18/18 09:56 Dose: 10 mg Aspirin (Asa -) 81 mg PO DAILY [facility] Last Admin: 01/18/18 09:56 Dose: 81 mg Bupropion HCl (Wellbutrin Xl -) 150 mg PO BID [facility] Last Admin: 01/18/18 09:58 Dose: 150 mg Carvedilol (Coreg -) 50 mg PO BID [facility] Last Admin: 01/18/18 09:56 Dose: 50 mg Clonidine (Catapres -) 0.1 mg PO HS [facility] Last Admin: 01/17/18 22:42 Dose: 0.1 mg Clopidogrel Bisulfate (Plavix -) 75 mg PO DAILY [facility] Last Admin: 01/18/18 09:56 Dose: 75 mg Furosemide (Lasix Injection -) 40 mg IVPUSH BID@0600,1400 [facility] Last Admin: 01/18/18 14:58 Dose: 40 mg Heparin Sodium (Porcine) (Heparin -) 5,000 unit SQ TID [facility] Last Admin: 01/18/18 14:58 Dose: 5,000 unit Insulin Aspart (Novolog Vial Sliding Scale -) 1 vial SQ [facility]; Protocol Last Admin: 01/18/18 12:42 Dose: 4 unit Insulin Detemir (Levemir Vial) 20 units SQ [facility] Last Admin: 01/17/18 22:42 Dose: 20 units Methimazole (Tapazole -) 10 mg PO DAILY [facility] Last Admin: 01/18/18 09:57 Dose: 10 mg Pantoprazole Sodium (Protonix -) 40 mg PO DAILY [facility] Last Admin: 01/18/18 09:57 Dose: 40 mg Perphenazine (Trilafon) 8 mg PO DAILY [facility] Last Admin: 01/18/18 09:57 Dose: 8 mg Prednisone (Deltasone -) 30 mg PO DAILY [facility] Last Admin: 01/18/18 09:57 Dose: 30 mg Ramipril (Altace -) 10 mg PO DAILY [facility] Last Admin: 01/18/18 09:56 Dose: 10 mg Senna (Senna -) 1 tab PO DAILY [facility] Last Admin: 01/18/18 09:57 Dose: Not Given - Objective Vital Signs: Vital Signs Temperature 98.4 F 01/18/18 15:05 Pulse Rate 70 01/18/18 15:05 Respiratory Rate 18 01/18/18 15:05 Blood Pressure 145/60 01/18/18 15:05 O2 Sat by Pulse Oximetry (%) 97 01/18/18 11:45 Constitutional: Yes: Well Nourished, Calm Eyes: Yes: WNL HENT: Yes: WNL Neck: Yes: WNL Cardiovascular: Yes: Regular Rate and Rhythm, S1, S2 Respiratory: Yes: CTA Bilaterally Gastrointestinal: Yes: Normal Bowel Sounds, Soft Extremities: Yes: WNL Edema: Yes Labs: CBC, BMP 01/18/18 06:30 01/18/18 09:15 INR, PTT INR 0.94 (0.83-1.09) 01/14/18 03:00 Problem List - Problems (1) Acute respiratory failure with hypercapnia Code(s): J96.02 - ACUTE RESPIRATORY FAILURE WITH HYPERCAPNIA (2) CHF exacerbation Code(s): I50.9 - HEART FAILURE, UNSPECIFIED (3) HTN (hypertension) Code(s): I10 - ESSENTIAL (PRIMARY) HYPERTENSION (4) COPD (chronic obstructive pulmonary disease) Code(s): J44.9 - CHRONIC OBSTRUCTIVE PULMONARY DISEASE, UNSPECIFIED (5) Diabetes Code(s): E11.9 - TYPE 2 DIABETES MELLITUS WITHOUT COMPLICATIONS (6) Hyperlipidemia Code(s): E78.5 - HYPERLIPIDEMIA, UNSPECIFIED (7) PVD (peripheral vascular disease) Code(s): I73.9 - PERIPHERAL VASCULAR DISEASE, UNSPECIFIED Assessment/Plan IMP: Acute CHF exacerbation improved Hypercapneic resp failure improving Likely [facility] SLEEP SCREEN AHI 19 PLAN: Lasix O2 as needed formal [facility] workup after D/C Daily weight Glycemic control chest x-ray DR MELGOZA
--- NOTE | 2018-01-18 17:51 | PN ---
Physical Exam: SUBJECTIVE: Patient seen and examined this AM. She states she is doing much better and feels ready to go home. Expresses concern about going home and developing similar symptoms. Counseled about low salt diet and fluid restriction. OBJECTIVE: Vital Signs Period Temp Pulse Resp BP Sys/Calero Pulse Ox Last 24 Hr 98.1 F-98.5 F 56-79 18-20 143-182/60-75 96-97 GENERAL: A&O, morbidly obese, no acute distress HEAD: Normocephalic, atraumatic. EYES: PERRL, no scleral icterus EARS, NOSE, THROAT: oropharynx clear without exudates. Moist mucous membranes. NECK: supple without lymphadenopathy LUNGS: Crackles greatly improved, mild expiratory wheezes noted HEART: Regular rate and rhythm, normal S1 and S2 without murmur ABDOMEN: Soft, nontender to palpation, normoactive bowel sounds MUSCULOSKELETAL: No bony deformities or tenderness. EXTREMITIES: 2+ pulses, warm, well-perfused. 1+ edema b/l NEUROLOGICAL: Cranial nerves II-XII grossly intact. Speech slow PSYCHIATRIC: Cooperative. Good eye contact. Appropriate mood and affect. Laboratory Results - last 24 hr 01/17/18 01/17/18 01/17/18 18:16 19:05 21:34 WBC RBC Hgb Hct MCV MCH MCHC RDW Plt Count MPV Absolute Neuts (auto) Neutrophils % Lymphocytes % Monocytes % Eosinophils % Basophils % Nucleated RBC % Sodium Potassium Chloride Carbon Dioxide Anion Gap BUN Creatinine Creat Clearance w eGFR POC Glucometer > 400 492 Random Glucose 538 H* Calcium Phosphorus Magnesium TSH 01/17/18 01/17/18 01/18/18 22:37 23:42 05:49 WBC RBC Hgb Hct MCV MCH MCHC RDW Plt Count MPV Absolute Neuts (auto) Neutrophils % Lymphocytes % Monocytes % Eosinophils % Basophils % Nucleated RBC % Sodium Potassium Chloride Carbon Dioxide Anion Gap BUN Creatinine Creat Clearance w eGFR POC Glucometer 448 392 282 Random Glucose Calcium Phosphorus Magnesium TSH 01/18/18 01/18/18 01/18/18 06:30 06:30 09:15 WBC 7.5 RBC 3.54 L Hgb 10.1 L Hct 30.3 L MCV 85.4 MCH 28.4 MCHC 33.2 RDW 15.4 Plt Count 199 MPV 8.4 Absolute Neuts (auto) 5.0 Neutrophils % 66.5 Lymphocytes % 21.8 D Monocytes % 11.3 H Eosinophils % 0.3 D Basophils % 0.1 Nucleated RBC % 0 Sodium 133 L 135 L Potassium 3.9 3.9 Chloride 100 100 Carbon Dioxide 28 29 Anion Gap 5 L 6 L BUN 60 H 58 H Creatinine 1.0 1.0 Creat Clearance w eGFR 55.14 55.14 POC Glucometer Random Glucose 257 H 198 H Calcium 8.1 L 8.3 L Phosphorus 2.9 2.8 Magnesium 2.1 2.1 TSH 7.85 H 01/18/18 12:41 WBC RBC Hgb Hct MCV MCH MCHC RDW Plt Count MPV Absolute Neuts (auto) Neutrophils % Lymphocytes % Monocytes % Eosinophils % Basophils % Nucleated RBC % Sodium Potassium Chloride Carbon Dioxide Anion Gap BUN Creatinine Creat Clearance w eGFR POC Glucometer 288 Random Glucose Calcium Phosphorus Magnesium TSH Active Medications Generic Name Dose Route Start Last Admin Trade Name Freq PRN Reason Stop Dose Admin Acetaminophen 650 mg 01/17/18 13:16 Tylenol - PO Q4H PRN PAIN Albuterol Sulfate 1 amp 01/17/18 13:16 Ventolin 0.083% Nebulizer Soln - NEB Q4H PRN SHORT OF BREATH/WHEEZING Amlodipine Besylate 10 mg 01/18/18 10:00 01/18/18 09:56 Norvasc - PO 10 mg DAILY JOHAN Administration Aspirin 81 mg 01/18/18 10:00 01/18/18 09:56 Asa - PO 81 mg DAILY JOHAN Administration Bupropion HCl 150 mg 01/17/18 22:00 01/18/18 09:58 Wellbutrin Xl - PO 150 mg BID JOHAN Administration Carvedilol 50 mg 01/17/18 22:00 01/18/18 09:56 Coreg - PO 50 mg BID [facility]OHAN Administration Clonidine 0.1 mg 01/17/18 22:00 01/17/18 22:42 Catapres - PO 0.1 mg HS JOHAN Administration Clopidogrel Bisulfate 75 mg 01/18/18 10:00 01/18/18 09:56 Plavix - PO 75 mg DAILY [facility] Administration Furosemide 40 mg 01/18/18 14:00 01/18/18 14:58 Lasix Injection - IVPUSH 40 mg BID@0600,1400 [facility]OHAN Administration Heparin Sodium (Porcine) 5,000 unit 01/17/18 14:00 01/18/18 14:58 Heparin - SQ 5,000 unit TID [facility]OHAN Administration Insulin Aspart 1 vial 01/17/18 16:30 01/18/18 12:42 Novolog Vial Sliding Scale - SQ 4 unit ACHS [facility]OHAN Administration Protocol Insulin Detemir 20 units 01/17/18 22:00 01/17/18 22:42 Levemir Vial SQ 20 units HS [facility]OHAN Administration Methimazole 10 mg 01/18/18 10:00 01/18/18 09:57 Tapazole - PO 10 mg DAILY [facility] Administration Pantoprazole Sodium 40 mg 01/18/18 10:00 01/18/18 09:57 Protonix - PO 40 mg DAILY [facility] Administration Perphenazine 8 mg 01/18/18 10:00 01/18/18 09:57 Trilafon PO 8 mg DAILY [facility] Administration Prednisone 30 mg 01/18/18 10:00 01/18/18 09:57 Deltasone - PO 30 mg DAILY [facility] Administration Ramipril 10 mg 01/17/18 17:30 01/18/18 09:56 Altace - PO 10 mg DAILY [facility] Administration Senna 1 tab 01/18/18 10:00 01/18/18 09:57 Senna - PO Not Given DAILY [facility] ASSESSMENT/PLAN: 67 yo female with PMH HTN, HLD, CAD s/p [place] s/p stents, CHF, COPD, hyperthyroidism, NIDDM with retinopathy and neuropathy, frequent falls, and schizophrenia admitted with acute respiratory distress. Acute Hypercapnic Hypoxic Respiratory Distress -Pt with acute on chronic CHF, respiratory distress likely secondary to fluid overload -Dramatic improvement with diuresis -Continue Lasix 40 mg IV BID, convert to PO on DC -Daily weights -ID Consult appreciated, monitor off Abx for now -Initially on bilevel ventilation, currently on room air -Solumedrol 40 mg IV Daily -DNR confirmed, pt is NOT DNI as per healthcare proxy -Likely DC in AM HTN -Home Clonidine 0.1 mg HS resumed -Coreg 50 mg PO BID -Norvasc 5 mg PO Daily BOB -Likely Pre-renal secondary to volume overload -Avoid nephrotoxic drugs -Continue to monitor BMP NIDDM -Levemir increased to 20 units -BMGs ACHs -Insulin sliding scale Schizophrenia -Wellbutrin 150 mg BID Hyperthyroid -TSH mildly elevated at 6.55 -On Methimazole 10 mg PO Daily -Repeat TSH 7.85, T4 dialysis and T3 pending, -Pt will need outpatient endocrine follow up CAD s/p [place] with stent -ASA 81 mg PO Daily -Plavix 75 mg PO Daily DVT Prophylaxis -Heparin 5000 units SQ TID FEN -Fluids: None -Electrolytes: No electrolyte abnormalities, BMP in AM -Nutrition: Diabetic Sodium Controlled Diet Disposition Med/Surg, DC likely in AM Visit type - Emergency Visit Emergency Visit: Yes ED Registration Date: 01/14/18 Care time: The patient presented to the Emergency Department on the above date and was hospitalized for further evaluation of their emergent condition. - New Patient This patient is new to me today: No - Critical Care Critical Care patient: No
[2018-01-18] MEDS ORDERED: INSULIN (NOVOLOG) ASPART 100 UNITS/ML 10ML VIAL SQ ONE ×2 (18:15→23:15)
[2018-01-18] MEDS: cloNIDine HCL 0.1 MG TABLET PO SCH (22:50)
[2018-01-18] MEDS: INSULIN (LEVEMIR) 100 UNITS/ML UNITS SQ SCH (23:07)
[2018-01-19] MEDS: HEPARIN NA (PORCINE) 5,000 UNITS/ML 1ML VIAL SQ SCH ×2 (06:12→14:40)
[2018-01-19] MEDS: INSULIN SLIDING SCALE (NOVOLOG) 1 VIAL SQ SCH ×2 (06:13→12:21)
[2018-01-19] MEDS: FUROSEMIDE 40 MG/4 ML INJECTABLE VIAL IVPUSH SCH (06:13)
[2018-01-19] MEDS ORDERED: INSULIN (NOVOLOG) ASPART 100 UNITS/ML 10ML VIAL ONE ×2 (06:49→12:23)
[2018-01-19 07:53] LABS: HEMATOCRIT 30.9 % (32.4-45.2); HEMOGLOBIN 10.2 GM/dL (10.7-15.3); MCH 28.4 pg (25.7-33.7); MCHC 33.1 g/dl (32.0-36.0); MEAN CELL VOLUME 85.8 fl (80-96); MEAN PLT VOLUME 8.4 fl (7.5-11.1); PLATELET COUNT 185 K/MM3 (134-434); WHITE BLOOD COUNT 6.8 K/mm3 (4.0-10.0)
[2018-01-19 08:09] LABS: ANION GAP 8 MMOL/L (8-16); BLOOD UREA NITROGEN 62 mg/dL (7-18); CALCIUM 8.2 mg/dL (8.5-10.1); CHLORIDE 102 mmol/L (98-107); CO2 27 mmol/L (21-32); GLUCOSE,RANDOM 234 mg/dL (74-106); PHOSPHOROUS 3.2 mg/dL (2.5-4.9); POTASSIUM 3.8 mmol/L (3.5-5.1); SODIUM 137 mmol/L (136-145)
--- NOTE | 2018-01-19 09:02 | PN ---
Teaching Attending Note Name of Resident: Lucio Mahmood ATTENDING PHYSICIAN STATEMENT I saw and evaluated the patient. I reviewed the resident's note and discussed the case with the resident. I agree with the resident's findings and plan as documented with exceptions below. SUBJECTIVE: Patients eeen and examined. breathing improved, no new complaints. OBJECTIVE: Vital Signs Period Temp Pulse Resp BP Sys/Calero Pulse Ox Last 24 Hr 98.1 F-98.9 F 56-79 18-20 143-157/60-74 96-97 Intake & Output 01/16/18 01/17/18 01/18/18 01/19/18 23:59 23:59 23:59 23:59 Intake Total 360 120 500 200 Output Total 500 2100 Balance -140 -1980 500 200 Weight 229 lb 240 lb 4.8 oz 236 lb 7 oz General sitting in chair in no acute distress Chest improved air entry, no rales appreciated Extremities improved pedal edema Active Medications Acetaminophen (Tylenol -) 650 mg PO Q4H PRN PRN Reason: PAIN Albuterol Sulfate (Ventolin 0.083% Nebulizer Soln -) 1 amp NEB Q4H PRN PRN Reason: SHORT OF BREATH/WHEEZING Amlodipine Besylate (Norvasc -) 10 mg PO DAILY [facility] Last Admin: 01/18/18 09:56 Dose: 10 mg Aspirin (Asa -) 81 mg PO DAILY [facility] Last Admin: 01/18/18 09:56 Dose: 81 mg Bupropion HCl (Wellbutrin Xl -) 150 mg PO BID [facility] Last Admin: 01/18/18 22:50 Dose: 150 mg Carvedilol (Coreg -) 50 mg PO BID [facility] Last Admin: 01/18/18 22:50 Dose: 50 mg Clonidine (Catapres -) 0.1 mg PO HS [facility] Last Admin: 01/18/18 22:50 Dose: 0.1 mg Clopidogrel Bisulfate (Plavix -) 75 mg PO DAILY [facility] Last Admin: 01/18/18 09:56 Dose: 75 mg Furosemide (Lasix -) 40 mg PO BID@0600,1400 [facility] Heparin Sodium (Porcine) (Heparin -) 5,000 unit SQ TID [facility] Last Admin: 01/19/18 06:12 Dose: Not Given Insulin Aspart (Novolog Vial Sliding Scale -) 1 vial SQ ACHS [facility]; Protocol Last Admin: 01/19/18 06:13 Dose: 4 unit Insulin Detemir (Levemir Vial) 20 units SQ HS [facility] Last Admin: 01/18/18 23:07 Dose: 20 units Isosorbide Mononitrate (Imdur -) 60 mg PO DAILY [facility] Methimazole (Tapazole -) 10 mg PO DAILY [facility] Last Admin: 01/18/18 09:57 Dose: 10 mg Pantoprazole Sodium (Protonix -) 40 mg PO DAILY [facility] Last Admin: 01/18/18 09:57 Dose: 40 mg Perphenazine (Trilafon) 8 mg PO DAILY [facility] Last Admin: 01/18/18 09:57 Dose: 8 mg Senna (Senna -) 1 tab PO DAILY [facility] Last Admin: 01/18/18 09:57 Dose: Not Given Laboratory Results - last 24 hr 01/18/18 01/18/18 01/18/18 09:15 09:15 12:41 WBC RBC Hgb Hct MCV MCH MCHC RDW Plt Count MPV Sodium 135 L Potassium 3.9 Chloride 100 Carbon Dioxide 29 Anion Gap 6 L BUN 58 H Creatinine 1.0 Creat Clearance w eGFR 55.14 POC Glucometer 288 Random Glucose 198 H Calcium 8.3 L Phosphorus 2.8 Magnesium 2.1 Total T3 77.00 01/19/18 01/19/18 01/19/18 06:11 06:30 06:30 WBC 6.8 RBC 3.60 Hgb 10.2 L Hct 30.9 L MCV 85.8 MCH 28.4 MCHC 33.1 RDW 15.0 Plt Count 185 MPV 8.4 Sodium 137 Potassium 3.8 Chloride 102 Carbon Dioxide 27 Anion Gap 8 BUN 62 H Creatinine 1.0 Creat Clearance w eGFR 55.14 POC Glucometer 263 Random Glucose 234 H Calcium 8.2 L Phosphorus 3.2 Magnesium 2.0 Total T3 Microbiology 01/14/18 03:00 Blood - Peripheral Venous Blood Culture - Final NO GROWTH AFTER 5 DAYS INCUBATION 01/14/18 03:00 Blood - Peripheral Venous Blood Culture - Final NO GROWTH AFTER 5 DAYS INCUBATION 01/14/18 03:58 Urine - Urine - Catheterized Urine Culture - Final Cedecea Species 01/14/18 10:50 Urine For Antigen Detection Legionella Antigen - Final 01/14/18 10:50 Urine For Antigen Detection Streptococcus pneumoniae Antigen (M - Final ASSESSMENT AND PLAN: 67yo F wtih PMH HTN, dyslipidemia, DM, CAD s/p stent, schizophrenia, COPD, hyperthyroid from [place] assisted living due to acute respiratory distress -Acute diastolic heart failure exacerbation -Acute hypercapneic/hypoxic respiratory failure -Hypertensive urgency -BOB, likely from CHF -SIRS, no clinical evidence of infection, off abx -IDDM with hyperglycemia -CAD s/p PCI - Hyperthyroidism -Schizophrenia -Asymptomatic cedecia species bacteruria Plan: change to lasix 40 mg PO BID starting tomorrow. Off prednisone Pulmonary/ID input noted. Monitor off abx No urinary symptoms, hold off on treatment. Off steroids D/c on levemir 15 units hs with outpatient blood glucose monitoring. Resume home oral hypoglycemics. Continue clonidine/coreg/amlodipine. resume imdur. Continue asa/plavix/statin TFTs in 1-2 weeks, continue methimazole DNR, no DNI No home oxygen needs noted. PT eval noted. Dispo d/c assisted living today. Plan discussed with patient in detail, all questions answered.
[2018-01-19] MEDS ORDERED: ISOSORBIDE MONONITRATE 60 MG TAB.SR.24H (FP) PO SCH (10:00)
--- NOTE | 2018-01-19 10:09 | PN ---
Progress Note (short form) - Note Progress Note: PULMONARY States breathing is improving. +nonproductive cough. No fevers or chills. Vital Signs Period Temp Pulse Resp BP Sys/Calero Pulse Ox Last 24 Hr 98.3 F-98.9 F 56-79 18-20 145-157/60-74 96-97 Intake & Output 01/16/18 01/17/18 01/18/18 01/19/18 23:59 23:59 23:59 23:59 Intake Total 360 120 500 200 Output Total 500 2100 Balance -140 -1980 500 200 Weight 103.873 kg 108.998 kg 107.246 kg Gen: NAD at rest Heart: RRR Lung: scattered wheeze Abd: soft, nontender Ext: + edema CBC, BMP 01/19/18 06:30 01/19/18 06:30 Active Medications Acetaminophen (Tylenol -) 650 mg PO Q4H PRN PRN Reason: PAIN Albuterol Sulfate (Ventolin 0.083% Nebulizer Soln -) 1 amp NEB Q4H PRN PRN Reason: SHORT OF BREATH/WHEEZING Amlodipine Besylate (Norvasc -) [address] [facility] Last Admin: 01/18/18 09:56 Dose: 10 mg Aspirin (Asa -) [address] [facility] Last Admin: 01/18/18 09:56 Dose: 81 mg Bupropion HCl (Wellbutrin Xl -) [address] [facility] Last Admin: 01/18/18 22:50 Dose: 150 mg Carvedilol (Coreg -) [address] [facility] Last Admin: 01/18/18 22:50 Dose: 50 mg Clonidine (Catapres -) 0.1 mg PO [facility] Last Admin: 01/18/18 22:50 Dose: 0.1 mg Clopidogrel Bisulfate (Plavix -) [address] [facility] Last Admin: 01/18/18 09:56 Dose: 75 mg Furosemide (Lasix -) 40 mg PO BID@0600,1400 [facility] Heparin Sodium (Porcine) (Heparin -) 5,[address] [facility] Last Admin: 01/19/18 06:12 Dose: Not Given Insulin Aspart (Novolog Vial Sliding Scale -) 1 vial SQ [facility]; Protocol Last Admin: 01/19/18 06:13 Dose: 4 unit Insulin Detemir (Levemir Vial) 20 units SQ [facility] Last Admin: 01/18/18 23:07 Dose: 20 units Isosorbide Mononitrate (Imdur -) [address] [facility] Methimazole (Tapazole -) [address] [facility] Last Admin: 01/18/18 09:57 Dose: 10 mg Pantoprazole Sodium (Protonix -) [address] [facility] Last Admin: 01/18/18 09:57 Dose: 40 mg Perphenazine (Trilafon) [address] [facility] Last Admin: 01/18/18 09:57 Dose: 8 mg Senna (Senna -) [address] [facility] Last Admin: 01/18/18 09:57 Dose: Not Given A/P Acute on Chronic Diastolic Heart Failure Acute Hypoxic and Hypercapneic Respiratory Failure improving COPD CAD HTN DM Hyperlipidemia Schizophrenia - continue lasix - monitor urine output, creatinine - will add standing nebs for wheezing - off prednisone - PFTs, PSG as outpt - DVT prophylaxis
[2018-01-19 10:45] VITALS: BP 145/63; PULSE 64; TEMP 98.8
[2018-01-19] MEDS ORDERED: PT OWN MED DRAWER 7, Y5N ONE ×2 (10:49→10:59)
[2018-01-19] MEDS: ASPIRIN 81 MG CHEWABLE TABLETS PO SCH (10:50)
[2018-01-19] MEDS: CARVEDILOL 25 MG TABLET (FP) PO SCH (10:50)
[2018-01-19] MEDS: METHIMAZOLE 10 MG TABLET (FP) PO SCH (10:51)
[2018-01-19] MEDS: PANTOPRAZOLE 40 MG TABLET (FP) PO SCH (10:51)
[2018-01-19] MEDS: CLOPIDOGREL BISULFATE 75 MG TABLET (FP) PO SCH (10:51)
[2018-01-19] MEDS: amLODIPine BESYLATE 10 MG TABLET (FP) PO SCH (10:51)
[2018-01-19] MEDS: SENNOSIDES 8.6MG TABLET (FP) PO SCH (10:51)
[2018-01-19] MEDS: PERPHENAZINE 4 MG TABLET PO SCH (10:52)
--- NOTE | 2018-01-19 11:59 | DS ---
Physical Exam: SUBJECTIVE: Patient seen and examined this AM. She currently has no complaints and says that she feels ready to be discharged today. OBJECTIVE: Vital Signs Period Temp Pulse Resp BP Sys/Calero Pulse Ox Last 24 Hr 98.3 F-98.9 F 56-77 18-20 145-157/60-74 96 PHYSICAL EXAM GENERAL: A&O, morbidly obese, no acute distress HEAD: Normocephalic, atraumatic. EYES: PERRL, no scleral icterus EARS, NOSE, THROAT: oropharynx clear without exudates. Moist mucous membranes. LUNGS: Crackles greatly improved, mild expiratory wheezes noted HEART: Regular rate and rhythm, normal S1 and S2 without murmur ABDOMEN: Soft, nontender to palpation, normoactive bowel sounds MUSCULOSKELETAL: No bony deformities or tenderness. EXTREMITIES: 2+ pulses, warm, well-perfused. 1+ edema b/l NEUROLOGICAL: Cranial nerves II-XII grossly intact. Speech slow LABS Laboratory Results - last 24 hr 01/18/18 01/18/18 01/18/18 09:15 12:41 18:02 WBC RBC Hgb Hct MCV MCH MCHC RDW Plt Count MPV Sodium Potassium Chloride Carbon Dioxide Anion Gap BUN Creatinine Creat Clearance w eGFR POC Glucometer 288 514 Random Glucose Calcium Phosphorus Magnesium Total T3 77.00 01/18/18 01/19/18 01/19/18 22:53 06:11 06:30 WBC 6.8 RBC 3.60 Hgb 10.2 L Hct 30.9 L MCV 85.8 MCH 28.4 MCHC 33.1 RDW 15.0 Plt Count 185 MPV 8.4 Sodium Potassium Chloride Carbon Dioxide Anion Gap BUN Creatinine Creat Clearance w eGFR POC Glucometer 412 263 Random Glucose Calcium Phosphorus Magnesium Total T3 01/19/18 06:30 WBC RBC Hgb Hct MCV MCH MCHC RDW Plt Count MPV Sodium 137 Potassium 3.8 Chloride 102 Carbon Dioxide 27 Anion Gap 8 BUN 62 H Creatinine 1.0 Creat Clearance w eGFR 55.14 POC Glucometer Random Glucose 234 H Calcium 8.2 L Phosphorus 3.2 Magnesium 2.0 Total T3 IMAGING: CXR: Progressive congestive and infiltrative changes CXR: Congestive changes markedly diminished HOSPITAL COURSE: Date of Admission:01/14/18 Date of Discharge: 01/19/18 67yo F with hisotry of HTN, HLD, CAD (s/p WI and stents of unknown material), diastolic CHF (previous echo in 11/2017), COPD, Hyperthyroidism, NIDDM, and schizophrenia who presents today from [facility] for acute hypoxia down to 52% SpO2. Pt was altered and BIBEMS who placed a NRB with saturation increasing to 80-82% SpO2. Pt was placed on BiPap upon arrival to the ER due to having a DNR/DNI form from her assisted living. She was admitted to the ICU with the BiPap. She was given lasix with good response and she was carefully weaned back down to room air. She was also given duonebs and albuterol nebs with improvement of her respiratory symptoms as well. She required high doses of insulin on her sliding scale so her home lantus dose was increased from 7 to 15 on discharge. Her blood pressure was controlled on her home Clonidine, Coreg, and Norvasc, though she refused her home Ramipril as she states that it gives her headaches. It was discontinued on discharge. Her home lasix dose was 40 mg PO Daily, though upon discharge it was increased to 40 mg PO BID. She was discharged with Duonebs RQID. Minutes to complete discharge: 50 Discharge Summary Reason For Visit: HTN/OBESITY/ACUTE CHF Current Active Problems Acute respiratory failure (Acute) Acute respiratory failure with hypercapnia (Acute) Allergy to multiple antibiotics (Acute) CHF exacerbation (Acute) Cigarette smoker (Acute) HTN (hypertension) (Acute) Obesity (Acute) Condition: Stable - Instructions Diet, Activity, Other Instructions: You were admitted to the hospital because you were retaining fluid which went to your lungs and made it difficult to breath. You were given a higher dose of your home medication Lasix to help you urinate out the fluid, which helped to resolve all of your symptoms. It is important that you follow a Low Salt diet and avoid salty foods such as deli meats and many prepackaged and frozen foods. This will help you prevent another worsening of your symptoms and fluid retention. Your lasix has been increased to 40 mg twice daily starting tomorrow. It is very important that you have close follow up with your doctor while on lasix as the medication will need to be titrated based on your kidney function and swelling. recommend blood work (BMP) in 1 week with your doctor to address further dose adjustment. Your blood sugars were noted elevated. resume your oral diabetes medication. Currently you are recommended to continue levemir at 15 units at bedtime. Strongly advise blood sugar checks before meals and at bedtime every day, maintain a diary and notify your doctor if < 75 or persistently > 200 or any reading > 400 noted. Your levemir will need to be modified based on blood sugar readings. you may resume your aspart sliding scale as prior to discharge per your primary doctor as needed. Strongly recommend daily BP monitoring and low salt diet. You should use the Duoneb breathing treatments 4 times per day in order to help your breathing. Your thyroid levels were noted abnormal and will need to be repeated in 1-2 weeks with your doctor to address further dosing of your methimazole. Continue other medications as before. Strongly advise daily weights and notify doctor if weight gain > 3lbs in 2 days. Follow up: BMP (blood work Basic metabolic panel) in 1 week Thyroid function test with your doctor in 1-2 weeks. PCP follow up in 1 week Cardiology follow up in 1 week (you were seen by Dr. Patel on your prior admission) Blood sugars diary as above to discuss with PCP in 1 week. If you have severe worsening of shortness of breath, chest pain, or new onset weakness or dizziness, you should call your doctor or return to the emergency department immediately. Referrals: Yo Patel MD [Staff Physician] - 2 Weeks William Du MD [Primary Care Provider] - 1 Week Disposition: VNS/HOME HEALTH CARE - Home Medications Comprehensive Discharge Medication List: Ambulatory Orders Amlodipine Besylate [Norvasc -] 5 mg PO DAILY 01/14/18 Aspirin [ASA -] 81 mg PO DAILY 01/14/18 Bupropion HCl [Wellbutrin Sr] 150 mg PO BID 01/14/18 Carvedilol [Coreg -] 50 mg PO BID 01/14/18 Clonidine HCl 0.1 mg PO HS 01/14/18 Clopidogrel Bisulfate [Plavix -] 75 mg PO DAILY 01/14/18 Furosemide [Lasix] 40 mg PO DAILY 01/14/18 Gabapentin [Neurontin] 100 mg BUC DAILY 01/14/18 Insulin Aspart [Novolog] 01/14/18 Isosorbide Mononitrate [Imdur -] 60 mg PO DAILY 01/14/18 Methimazole 10 mg PO DAILY 01/14/18 Pantoprazole Sodium [Protonix] 40 mg PO DAILY 01/14/18 Perphenazine 8 mg PO DAILY 01/14/18 Ramipril 10 mg PO DAILY 01/14/18 Sennosides [Senna -] 1 tab PO DAILY 01/14/18 Simvastatin [Zocor -] 10 mg PO HS 01/14/18 Sitagliptin Phos/Metformin HCl [Janumet Xr 100-1,000 mg Tablet] 1 tab PO DAILY 01/14/18 Albuterol 2.5/Ipratropium 0.5 [Duoneb -] 1 [facility] QID #120 vial.neb. 01/19/18 Insulin Glargine,Hum.rec.anlog [Lantus] 20 unit SQ HS #6 vial 01/19/18 This patient is new to me today: No Emergency Visit: Yes ED Registration Date: 01/14/18 Care time: The patient presented to the Emergency Department on the above date and was hospitalized for further evaluation of their emergent condition. Critical Care patient: No - Discharge Referral Referred to [facility] Med P.[facility].: No
[2018-01-19] MEDS ORDERED: ALBUTEROL SO4 2.5/IPRATROPIUM 0.5 INH SOL 3 ML VIAL.NEB. NEB SCH (14:00)
[2018-01-20] MEDS ORDERED: FUROSEMIDE 40 MG TABLET (FP) PO SCH ×2 (06:00→10:00)
== END 2018-01-19 16:32 | disposition home health service (06) | DRG 291 ==
LOC: JER 02:45 → JICU 04:32 → UNDOADMIN 05:16 → J8W 01-17 20:27
PROVIDERS: ADMIT Internal Medicine; ATTEND Hospitalist
PROC: 5A09357 Assistance with Respiratory Ventilation, Less than 24 Consecutive Hours, Continuous Positive Airway Pressure (ICD-10-PCS; principal; 2018-01-14)
DX: I11.0 Hypertensive heart disease with heart failure (principal); J96.01 Acute respiratory failure with hypoxia; J96.02 Acute respiratory failure with hypercapnia; N17.9 Acute kidney failure, unspecified; E87.2 Acidosis; R65.10 Systemic inflammatory response syndrome (SIRS) of non-infectious origin without acute organ dysfunction; I50.33 Acute on chronic diastolic (congestive) heart failure; J44.9 Chronic obstructive pulmonary disease, unspecified; F20.9 Schizophrenia, unspecified; E78.00 Pure hypercholesterolemia, unspecified; E66.9 Obesity, unspecified; Z68.38 Body mass index [BMI] 38.0-38.9, adult; I25.10 Atherosclerotic heart disease of native coronary artery without angina pectoris; E05.90 Thyrotoxicosis, unspecified without thyrotoxic crisis or storm; E11.319 Type 2 diabetes mellitus with unspecified diabetic retinopathy without macular edema; E11.40 Type 2 diabetes mellitus with diabetic neuropathy, unspecified; I25.2 Old myocardial infarction; E88.09 Other disorders of plasma-protein metabolism, not elsewhere classified; R41.82 Altered mental status, unspecified; D72.829 Elevated white blood cell count, unspecified; I16.0 Hypertensive urgency; D63.1 Anemia in chronic kidney disease; E11.65 Type 2 diabetes mellitus with hyperglycemia; Z88.1 Allergy status to other antibiotic agents; R68.0 Hypothermia, not associated with low environmental temperature; G47.33 Obstructive sleep apnea (adult) (pediatric); R82.71 Bacteriuria; Z66 Do not resuscitate; Z95.5 Presence of coronary angioplasty implant and graft
CPT/HCPCS: 36415; 71045-TC-FY; 80048; 80053; 81003; 81015; 82803; 82947; 82962; 83605; 83735; 83880; 84100; 84439; 84443; 84480; 84484; 85025; 85027; 85610; 85730; 87040; 87086; 87186; 87899; 93005; 93010; 94640; 94660; 94761; 97116-GP; 99285-25; J0735; J1644; J7620